=== PATIENT | male | born 1965 | race Two or more races ===

== ENCOUNTER 2016-11-05 01:47 | Emergency (ER) | payer OTHER ==
[~2016-11-05] VITALS: Ht 165.1 cm; Wt 85.3 kg
[~2016-11-05 01:47] MED LIST: FENO200C PO; PANT40TA2 PO; TRAM50TA2 PO
--- NOTE | 2016-11-05 01:47 | NUR ---
to bed 2 ambulatory c/o chest pain, abdominal pain, and back pain x2-3hrs. pt aaox4 no acute distress noted, resp even and unlabored. place pt on cardiac monitoring, continuous pox, o2@2l/nc. er md at bedside to eval pt with orders receved. will carry out orders.
--- NOTE | 2016-11-05 01:50 | NUR ---
started sl 18g to L ac, blood drawn and sent to lab. pt family member at bedside.
[2016-11-05] MEDS ORDERED: ONDANSETRON HCL/PF 4 MG/2 ML VIAL ONE (02:09)
[2016-11-05] MEDS ORDERED: MORPHINE SULFATE INJ 4 MG/ML DISP.SYRIN ONE (02:09)
[2016-11-05] MEDS ORDERED: IV SET PRIMARY 1 EA INFUS.SET MC ONE (02:09)
[2016-11-05] MEDS ORDERED: IV NS 0.9% 1,000 ML ONE (02:09)
[2016-11-05 02:17] LABS: BASOPHILS % (AUTO) 0.4 % (0.0-2.0); EOSINOPHILS % (AUTO) 0.7 % (0.0-6.0); HEMATOCRIT 44 % (39-51); HEMOGLOBIN 15.3 g/dL (13.5-17.5); LYMPHOCYTES # (AUTO) 2.8 /CMM (0.8-4.8); LYMPHOCYTES % (AUTO) 46.7 % (20.0-44.0); MEAN CORPUSCULAR HEMOGLOBIN 32 PG (26.0-33.0); MEAN CORPUSCULAR HGB CONC 34 g/dl (31.0-36.0); MEAN CORPUSCULAR VOLUME 94 fL (80-96); MONOCYTES # (AUTO) 0.4 /CMM (0.1-1.30); MONOCYTES % (AUTO) 7.4 % (2.0-12.0); NEUTROPHILS # (AUTO) 2.7 /CMM (1.8-8.9); NEUTROPHILS % (AUTO) 44.8 % (43.0-81.0); PLATELET COUNT (AUTO) 253 /CMM (150-450); RDW COEFFICIENT OF VARIATION 13.5 (11.5-15.0); RED BLOOD CELL COUNT(AUTO) 4.73 MIL/uL (4.5-6.0); WHITE BLOOD COUNT (AUTO) 5.9 K/uL (4.3-11.0)
[2016-11-05] MEDS ORDERED: MORPHINE SULFATE INJ 2 MG/ML DISP.SYRIN IV ONE (02:30)
[2016-11-05] MEDS ORDERED: IV NS 0.9% 1,000 ML BAG IV ONE (02:30)
[2016-11-05] MEDS ORDERED: ONDANSETRON HCL/PF 4 MG/2 ML VIAL IVP ONE (02:30)
[2016-11-05 02:35] LABS: ALKALINE PHOSPHATASE 79 U/L (46-116); BILIRUBIN,DIRECT 0.1 mg/dL (0.0-0.2); BILIRUBIN,TOTAL 0.6 mg/dL (0.2-1.0); CARBON DIOXIDE 24 mmol/L (21-32); CHLORIDE 101 mmol/L (98-107); CREATININE 0.8 mg/dL (0.6-1.3); GFR 102 mL/min (>60); GLUCOSE 161 mg/dL (74-106); LIPASE 637 U/L (73-393); POTASSIUM 3.7 mmol/L (3.5-5.1); SODIUM SERUM 139 mmol/L (136-145); TOTAL PROTEIN, SERUM 7.4 g/dL (6.4-8.2); UREA NITROGEN, BLOOD 11 mg/dL (7-18)
[2016-11-05 02:37] LABS: TROPONIN I < 0.017 ng/mL (0.00-0.056)
[2016-11-05] MEDS ORDERED: IV NS 0.9% 250 ML IV ONE (02:48)
[2016-11-05] MEDS ORDERED: CT SWABBABLE VALVE TRANS SET 1 EA INFUS.SET MC ONE (02:49)
[2016-11-05] MEDS ORDERED: IOHEXOL-300 100 ML VIAL IV ONE (02:49)
[2016-11-05 02:53] LABS: ALANINE AMINOTRANSFERASE 30 U/L (12-78); ASPARTATE AMINOTRANSFERASE 32 U/L (15-37)
--- NOTE | 2016-11-05 02:57 | NUR ---
pt transported to radiology for ct abd/pelvis with iv contrast.
--- NOTE | 2016-11-05 03:16 | NUR ---
pt back from radiology. pending ct abd/pelvis result.
--- NOTE | 2016-11-05 03:32 | NUR ---
pt still c/o abdominal pain. er md made aware.
[2016-11-05 04:13] LABS: APPEARANCE,URINE CLEAR (CLEAR); BILIRUBIN,URINE NEGATIVE (NEGATIVE); BLOOD, URINE NEGATIVE Ery/uL (NEGATIVE); KETONES,URINE NEGATIVE (NEGATIVE); LEUKOCYTE ESTERASE ,URINE NEGATIVE (NEGATIVE); NITRITE, URINE NEGATIVE (NEGATIVE); PROTEIN,URINE NEGATIVE (NEGATIVE); UGLUCOSE NEGATIVE (NEGATIVE); UROBILINOGEN,URINE 0.2 EU/dL (0.2)
[2016-11-05 04:19] LABS: COLOR,URINE STRAW (YELLOW)
--- NOTE | 2016-11-05 04:43 | NUR ---
IV removed. Catheter intact and site benign. Pressure and 4x4 applied to site. No bleeding noted. Patient discharged to home in stable condition. Written and verbal after care instructions given. Patient verbalizes understanding of instruction. ambulatory with a steady gait noted. pt aaox4 no acute distress noted, resp even and unlabored. advice pt not to drive or operate any machinery due to pt was given narcotic medicine. pt verbalize understanding.
[2016-11-05 04:44] VITALS: BP 123/67
== END 2016-11-05 04:45 | disposition home or self-care (01) ==
LOC: ER 01:50 → TELE1 03:10 → UNDOADMIN 03:10 → ER 04:45
DX: K85.90 Acute pancreatitis without necrosis or infection, unspecified (principal); E78.00 Pure hypercholesterolemia, unspecified; F17.200 Nicotine dependence, unspecified, uncomplicated
CPT/HCPCS: 36415; 71010-TC; 80048-TC; 80076-TC; 81000-TC; 83690-TC; 84484-TC; 85025-TC; A4606; J2270; J2405; J7030; J7050; Q9967; Z7610

== ENCOUNTER 2016-12-28 00:01 | Emergency (ER) | payer OTHER ==
[~2016-12-28] VITALS: Ht 165.1 cm; Wt 81.6 kg
--- NOTE | 2016-12-28 01:25 | NUR ---
TO BED 06 A 51 YO MALE BBSELF WITH C/O "ANDRE GROIN OR PELVIC PAIN SINCE YESTERDAY MORNING, WORSE TO DAY." PER PATIENT, HE TOOK 2 NORCO'S AT HOME. PATIENT IS AAOX4, AMBULATORY. VSS. NO S/S OF ACUTE DISTRESS. BREATHING EVEN UNLABORED. NONDIAPHORETIC. GOWNED. INITIATED SAFETY AND COMFORT MEASURES. AWAITING FOR ER MD FAGAN.
[2016-12-28] MEDS ORDERED: ONDANSETRON HCL/PF 4 MG/2 ML VIAL IVP ONE (02:00)
[2016-12-28] MEDS ORDERED: IV NS 0.9% 1,000 ML BAG IV ONE (02:00)
--- NOTE | 2016-12-28 02:00 | NUR ---
STARTED A SALINE LOCK ON THE LAC G18, BLOOD DRAWN AND SENT TO LAB.
[2016-12-28] MEDS ORDERED: IV NS 0.9% 1,000 ML ONE (02:07)
[2016-12-28] MEDS ORDERED: ONDANSETRON HCL/PF 4 MG/2 ML VIAL ONE (02:07)
[2016-12-28] MEDS ORDERED: IV SET PRIMARY 1 EA INFUS.SET MC ONE (02:07)
[2016-12-28 02:12] LABS: BASOPHILS % (AUTO) 0.2 % (0.0-2.0); EOSINOPHILS # (AUTO) 0.1 /CMM (0.0-0.7); EOSINOPHILS % (AUTO) 0.9 % (0.0-6.0); HEMATOCRIT 43 % (39-51); HEMOGLOBIN 14.8 g/dL (13.5-17.5); LYMPHOCYTES # (AUTO) 2.9 /CMM (0.8-4.8); LYMPHOCYTES % (AUTO) 30.6 % (20.0-44.0); MEAN CORPUSCULAR HEMOGLOBIN 33 PG (26.0-33.0); MEAN CORPUSCULAR HGB CONC 35 g/dl (31.0-36.0); MEAN CORPUSCULAR VOLUME 95 fL (80-96); MONOCYTES # (AUTO) 0.4 /CMM (0.1-1.30); MONOCYTES % (AUTO) 4.2 % (2.0-12.0); NEUTROPHILS # (AUTO) 6.1 /CMM (1.8-8.9); NEUTROPHILS % (AUTO) 64.1 % (43.0-81.0); PLATELET COUNT (AUTO) 228 /CMM (150-450); RDW COEFFICIENT OF VARIATION 13.2 (11.5-15.0); WHITE BLOOD COUNT (AUTO) 9.4 K/uL (4.3-11.0)
[2016-12-28 02:15] LABS: APPEARANCE,URINE CLEAR (CLEAR); BILIRUBIN,URINE NEGATIVE (NEGATIVE); BLOOD, URINE NEGATIVE Ery/uL (NEGATIVE); KETONES,URINE NEGATIVE (NEGATIVE); LEUKOCYTE ESTERASE ,URINE NEGATIVE (NEGATIVE); NITRITE, URINE NEGATIVE (NEGATIVE); PROTEIN,URINE NEGATIVE (NEGATIVE); UGLUCOSE NEGATIVE (NEGATIVE); UROBILINOGEN,URINE 0.2 EU/dL (0.2)
[2016-12-28 02:25] LABS: COLOR,URINE STRAW (YELLOW)
[2016-12-28 02:29] LABS: INR 0.98 (0.87-1.13); PROTHROMBIN TIME 10.5 SECS (9.5-12.7)
[2016-12-28 02:34] LABS: ALBUMIN 4.1 g/dL (3.4-5.0); BILIRUBIN,DIRECT 0.1 mg/dL (0.0-0.2); BILIRUBIN,TOTAL 0.8 mg/dL (0.2-1.0); CALCIUM, SERUM 9.3 mg/dL (8.5-10.1); CREATININE 0.8 mg/dL (0.6-1.3); POTASSIUM 3.5 mmol/L (3.5-5.1); TOTAL PROTEIN, SERUM 7.6 g/dL (6.4-8.2)
[2016-12-28] MEDS ORDERED: IOHEXOL-300 100 ML VIAL IV ONE (02:44)
[2016-12-28] MEDS ORDERED: IV NS 0.9% 250 ML IV ONE (02:44)
--- NOTE | 2016-12-28 03:15 | NUR ---
patient to ct.
[2016-12-28] MEDS ORDERED: AMOX/CLAVULANATE 875 MG TABLET ONE (04:14)
[2016-12-28] MEDS ORDERED: IBUPROFEN 400 MG TABLET ONE (04:14)
[2016-12-28] MEDS ORDERED: IBUPROFEN 400 MG TABLET PO ONE (04:30)
[2016-12-28] MEDS ORDERED: AMOX/CLAVULANATE 875 MG TABLET PO ONE (04:30)
--- NOTE | 2016-12-28 04:34 | NUR ---
IV removed. Catheter intact and site benign. Pressure and 4x4 applied to site. No bleeding noted.
--- NOTE | 2016-12-28 04:40 | NUR ---
Patient discharged to home in stable condition. Written and verbal after care instructions given. Patient verbalizes understanding of instruction. Patient is ambulatory with steady gait, instructed not to drive as patient admitted of drinking vodka. No further complaints.
[2016-12-28 04:41] VITALS: BP 138/78
== END 2016-12-28 04:42 | disposition home or self-care (01) ==
LOC: ER 00:01
DX: K57.92 Diverticulitis of intestine, part unspecified, without perforation or abscess without bleeding (principal); I10 Essential (primary) hypertension; K85.90 Acute pancreatitis without necrosis or infection, unspecified; Z95.811 Presence of heart assist device; F17.200 Nicotine dependence, unspecified, uncomplicated
CPT/HCPCS: 36415; 80048-TC; 80076-TC; 81000-TC; 83690-TC; 85025-TC; 85730-TC; A4606; J2405; J7030; J7050; Q9967; Z7610

== ENCOUNTER 2017-01-21 10:15 | Emergency (ER) | payer OTHER ==
[~2017-01-21] VITALS: Ht 175.3 cm; Wt 88.5 kg
--- NOTE | 2017-01-21 10:18 | NUR ---
BIB RA C/O DIFFUSED CHEST DISCOMFORT, WITH ANXIOUSNESS SINCE THIS MORNING ASA 162, NITRO X 2 GIVEN IN FIELD. PLACED ON MONITOR. AWAITING MD ORDER
--- NOTE | 2017-01-21 10:20 | NUR ---
L AC G 20 IV POA. BLOOD TESTS DRAWN AND SEND TO LAB.
[2017-01-21] MEDS ORDERED: ASPIRIN 325 MG TABLET ONE (11:23)
[2017-01-21] MEDS ORDERED: LORAZEPAM INJ 2 MG/ML VIAL ONE (11:24)
[2017-01-21 11:25] LABS: CALCIUM, SERUM 9.2 mg/dL (8.5-10.1); CARBON DIOXIDE 25 mmol/L (21-32); CHLORIDE 102 mmol/L (98-107); CREATININE 0.9 mg/dL (0.6-1.3); GLUCOSE 154 mg/dL (74-106); POTASSIUM 3.4 mmol/L (3.5-5.1); SODIUM SERUM 136 mmol/L (136-145); UREA NITROGEN, BLOOD 14 mg/dL (7-18)
[2017-01-21] MEDS ORDERED: ASPIRIN 325 MG TABLET PO ONE (11:30)
[2017-01-21] MEDS ORDERED: LORAZEPAM INJ 2 MG/ML VIAL IV ONE (11:30)
[2017-01-21 11:34] LABS: INR 0.96 (0.87-1.13); TROPONIN I < 0.017 ng/mL (0.00-0.056)
[2017-01-21 11:42] LABS: BASOPHILS # (AUTO) 0.1 /CMM (0.0-0.2); BASOPHILS % (AUTO) 0.6 % (0.0-2.0); EOSINOPHILS # (AUTO) 0.2 /CMM (0.0-0.7); EOSINOPHILS % (AUTO) 1.6 % (0.0-6.0); HEMATOCRIT 46 % (39-51); HEMOGLOBIN 15.8 g/dL (13.5-17.5); LYMPHOCYTES # (AUTO) 4.7 /CMM (0.8-4.8); LYMPHOCYTES % (AUTO) 48.6 % (20.0-44.0); MEAN CORPUSCULAR HEMOGLOBIN 33 PG (26.0-33.0); MEAN CORPUSCULAR HGB CONC 34 g/dl (31.0-36.0); MEAN CORPUSCULAR VOLUME 95 fL (80-96); MONOCYTES # (AUTO) 0.6 /CMM (0.1-1.30); MONOCYTES % (AUTO) 6.4 % (2.0-12.0); NEUTROPHILS # (AUTO) 4.1 /CMM (1.8-8.9); NEUTROPHILS % (AUTO) 42.8 % (43.0-81.0); PLATELET COUNT (AUTO) 280 /CMM (150-450); RDW COEFFICIENT OF VARIATION 13.7 (11.5-15.0); RED BLOOD CELL COUNT(AUTO) 4.83 MIL/uL (4.5-6.0); WHITE BLOOD COUNT (AUTO) 9.7 K/uL (4.3-11.0)
--- NOTE | 2017-01-21 11:44 | NUR ---
URINE SAMPLE COLLECTED SENT TO LAB
--- NOTE | 2017-01-21 11:44 | NUR ---
PT WAS ABLE TO URINATE PRIOR TO STRAIGHT CATH.
--- NOTE | 2017-01-21 11:45 | NUR ---
URINE SAMPLE COLLECTED AND SENT TO LAB
[2017-01-21 11:50] LABS: ALCOHOL, BLOOD < 3 mg/dL (0-0); LIPASE 369 U/L (73-393)
[2017-01-21 14:04] VITALS: BP 121/67
--- NOTE | 2017-01-21 14:04 | NUR ---
PT. VERBALIZED UNDERSTANDING OF AFTERCARE INSTRUCTIONS.Patient discharged to home in stable condition. Written and verbal after care instructions given. Patient verbalizes understanding of instruction.
--- NOTE | 2017-01-21 14:04 | NUR ---
IV removed. Catheter intact and site benign. Pressure and 4x4 applied to site. No bleeding noted.
== END 2017-01-21 14:05 | disposition home or self-care (01) ==
LOC: ER 10:16
DX: R07.89 Other chest pain (principal); I10 Essential (primary) hypertension; K85.90 Acute pancreatitis without necrosis or infection, unspecified; F17.200 Nicotine dependence, unspecified, uncomplicated; I25.10 Atherosclerotic heart disease of native coronary artery without angina pectoris
CPT/HCPCS: 36415; 71010-TC; 80048-TC; 80305; 83690-TC; 84484-TC; 85025-TC; 85730-TC; A4606; G0480; J2060; Z7610

== ENCOUNTER 2017-04-18 19:16 | Emergency (ER) | payer OTHER ==
[~2017-04-18] VITALS: Ht 165.1 cm; Wt 81.6 kg
--- NOTE | 2017-04-18 19:40 | NUR ---
ISMA C/O MIDEPIGASTRIC PAIN SINCE 12PM. - N/V . SEEN BY FOR EVAL. IV ACCESS STARTED. SAFETY AND COMFORT MEASURES PROVIDED. WILL MONITOR.
--- NOTE | 2017-04-18 20:15 | NUR ---
PT MEDICATED ORDERED.
[2017-04-18 20:16] LABS: APPEARANCE,URINE Clear (CLEAR); BILIRUBIN,URINE Negative (NEGATIVE); BLOOD, URINE Negative Ery/uL (NEGATIVE); COLOR,URINE Yellow (YELLOW); KETONES,URINE Negative (NEGATIVE); LEUKOCYTE ESTERASE ,URINE Negative (NEGATIVE); NITRITE, URINE Negative (NEGATIVE); PH,URINE 5.5 (5.0-8.0); PROTEIN,URINE Negative (NEGATIVE); UGLUCOSE Negative (NEGATIVE); UROBILINOGEN,URINE 0.2 EU/dL (0.2)
[2017-04-18 20:52] LABS: ALBUMIN 3.2 g/dL (3.4-5.0); BILIRUBIN,DIRECT 0.1 mg/dL (0.0-0.2); BILIRUBIN,TOTAL 1.3 mg/dL (0.2-1.0); CARBON DIOXIDE 11 mmol/L (21-32); CHLORIDE 97 mmol/L (98-107); CREATININE 0.8 mg/dL (0.6-1.3); GLUCOSE 221 mg/dL (74-106); LIPASE 308 U/L (73-393); POTASSIUM 3.2 mmol/L (3.5-5.1); SODIUM SERUM 130 mmol/L (136-145)
--- NOTE | 2017-04-18 21:02 | NUR ---
RN AT BEDSIDE TO MEDICATE PT.
[2017-04-18 21:18] LABS: BASOPHILS % (AUTO) 0.4 % (0.0-2.0); EOSINOPHILS # (AUTO) 0.1 /CMM (0.0-0.7); EOSINOPHILS % (AUTO) 1.1 % (0.0-6.0); HEMATOCRIT 42 % (39-51); HEMOGLOBIN 14.4 g/dL (13.5-17.5); LYMPHOCYTES # (AUTO) 3.2 /CMM (0.8-4.8); LYMPHOCYTES % (AUTO) 38.7 % (20.0-44.0); MEAN CORPUSCULAR HEMOGLOBIN 33 PG (26.0-33.0); MEAN CORPUSCULAR HGB CONC 35 g/dl (31.0-36.0); MEAN CORPUSCULAR VOLUME 95 fL (80-96); MONOCYTES # (AUTO) 0.5 /CMM (0.1-1.30); MONOCYTES % (AUTO) 6.4 % (2.0-12.0); NEUTROPHILS # (AUTO) 4.4 /CMM (1.8-8.9); NEUTROPHILS % (AUTO) 53.4 % (43.0-81.0); PLATELET COUNT (AUTO) 211 /CMM (150-450); RDW COEFFICIENT OF VARIATION 14.2 (11.5-15.0)
[2017-04-18 21:22] LABS: WHITE BLOOD COUNT (AUTO) 8.3 K/uL (4.3-11.0)
[2017-04-18 21:52] LABS: ALANINE AMINOTRANSFERASE 84 U/L (12-78); ASPARTATE AMINOTRANSFERASE 152 U/L (15-37); TROPONIN I < 0.017 ng/mL (0.00-0.056)
[2017-04-18 22:16] LABS: ALKALINE PHOSPHATASE 109 U/L (46-116); UREA NITROGEN, BLOOD 14 mg/dL (7-18)
--- NOTE | 2017-04-18 22:19 | NUR ---
DR. ANDREW AT BEDSIDE TO RYLAN BARROW.
[2017-04-18 22:21] LABS: INR 0.96 (0.87-1.13)
[2017-04-18 22:27] LABS: CALCIUM, SERUM 6.8 mg/dL (8.5-10.1)
[2017-04-18 22:28] LABS: TOTAL PROTEIN, SERUM 6.4 g/dL (6.4-8.2)
[2017-04-18 22:45] VITALS: BP 127/67
== END 2017-04-18 22:46 | disposition other institution (70) ==
LOC: ER 19:18
DX: E78.5 Hyperlipidemia, unspecified (principal); R10.10 Upper abdominal pain, unspecified; I10 Essential (primary) hypertension; F17.200 Nicotine dependence, unspecified, uncomplicated; Z95.828 Presence of other vascular implants and grafts
CPT/HCPCS: 36415; 70450; 71010; 74176; 80048; 80076; 81001; 83690; 84484; 85025; 85730; 93005; 96361; 96374; 96375; 96376; 99285; A4606; J1170; J2270; J2405 ×3; J7030; Z7610; 81000-TC

== ENCOUNTER 2017-05-26 00:47 | Emergency (ER) | payer OTHER ==
[~2017-05-26] VITALS: Ht 165.1 cm; Wt 81.6 kg
--- NOTE | 2017-05-26 01:15 | NUR ---
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 TOOK CLONIDINE 0.1MG PO AND NITRO SL 1 TAB. PT STATES FEELING NAUSEOUS. PT AOX3 RR EVEN AND UNLABORED. NO SOB NOTED. NAD NOTED. NO NVD AT THIS TIME. PT GOWNED AND PLACED ON MONITOR WAITING FOR MD FAGAN.
[2017-05-26 01:16] VITALS: BP 121/87
--- NOTE | 2017-05-26 01:16 | NUR ---
DR. LORD AT BEDSIDE FOR EVAL.
--- NOTE | 2017-05-26 01:26 | NUR ---
PT LEFT WITHOUT D/C PAPERS. MD JULES
== END 2017-05-26 01:26 | disposition home or self-care (01) ==
LOC: ER 00:49
DX: F41.9 Anxiety disorder, unspecified (principal); I10 Essential (primary) hypertension; Z95.811 Presence of heart assist device; F17.200 Nicotine dependence, unspecified, uncomplicated
CPT/HCPCS: 99284; A4606; Z7610

== ENCOUNTER 2017-06-08 01:14 | Emergency (ER) | payer OTHER ==
[~2017-06-08] VITALS: Ht 165.1 cm; Wt 81.6 kg
[2017-06-08 01:16] VITALS: BP 133/94
== END 2017-06-08 03:27 | disposition home or self-care (01) ==
LOC: ER 01:15
DX: F41.9 Anxiety disorder, unspecified (principal); I10 Essential (primary) hypertension; F17.200 Nicotine dependence, unspecified, uncomplicated; Z95.818 Presence of other cardiac implants and grafts
CPT/HCPCS: 99284; A4606 ×2; Z7610 ×2

== ENCOUNTER 2017-08-10 16:15 | Inpatient (IN) | payer OTHER ==
[~2017-08-10] VITALS: Ht 165.1 cm; Wt 87.1 kg
--- NOTE | 2017-08-10 16:20 | NUR ---
BBRA FROM HOME: ABDOMINAL PAIN, CHEST PAIN SINCE YESTERDAY, WORSE TODAY. VSS. SEEN BY MD FOR EVAL. NITRO GIVEN FROM FIELD. PT REPORTS HX OF STENT PLACEMENT X 2. SAFETY AND COMFORT MEASURES PROVIDED. WILL MONITOR.
--- NOTE | 2017-08-10 16:57 | NUR ---
IV ACCESS STARTED. BLOOD DRAWN FOR LABS.
[2017-08-10 17:00] LABS: BASOPHILS % (AUTO) 0.7 % (0.0-2.0); EOSINOPHILS # (AUTO) 0.1 /CMM (0.0-0.7); EOSINOPHILS % (AUTO) 0.9 % (0.0-6.0); HEMATOCRIT 40 % (39-51); HEMOGLOBIN 14.2 g/dL (13.5-17.5); LYMPHOCYTES % (AUTO) 50.7 % (20.0-44.0); MEAN CORPUSCULAR HEMOGLOBIN 33 PG (26.0-33.0); MEAN CORPUSCULAR HGB CONC 35 g/dl (31.0-36.0); MEAN CORPUSCULAR VOLUME 94 fL (80-96); MONOCYTES # (AUTO) 0.6 /CMM (0.1-1.30); MONOCYTES % (AUTO) 9.5 % (2.0-12.0); NEUTROPHILS # (AUTO) 2.2 /CMM (1.8-8.9); NEUTROPHILS % (AUTO) 38.2 % (43.0-81.0); PLATELET COUNT (AUTO) 304 /CMM (150-450); RDW COEFFICIENT OF VARIATION 12.5 (11.5-15.0); RED BLOOD CELL COUNT(AUTO) 4.29 MIL/uL (4.5-6.0); WHITE BLOOD COUNT (AUTO) 5.9 K/uL (4.3-11.0)
[2017-08-10 17:09] LABS: CALCIUM, SERUM 9.7 mg/dL (8.5-10.1); CARBON DIOXIDE 23 mmol/L (21-32); CHLORIDE 99 mmol/L (98-107); CREATININE 1.2 mg/dL (0.6-1.3); GLUCOSE 122 mg/dL (74-106); POTASSIUM 3.5 mmol/L (3.5-5.1); SODIUM SERUM 135 mmol/L (136-145); UREA NITROGEN, BLOOD 22 mg/dL (7-18)
[2017-08-10 17:12] LABS: INR 0.91 (0.85-1.15)
[2017-08-10 17:18] LABS: TROPONIN I < 0.017 ng/mL (0.00-0.056)
[2017-08-10] MEDS ORDERED: IV NS 0.9% 1,000 ML BAG IV ONE (17:30)
[2017-08-10] MEDS ORDERED: HYDROMORPHONE INJ 0.5 MG/0.5 ML SYRINGE IV ONE (17:30)
[2017-08-10] MEDS ORDERED: HYDROMORPHONE 1 MG/1 ML DISP.SYRIN ONE ×2 (17:34→20:09)
[2017-08-10 17:40] LABS: ALBUMIN 3.8 g/dL (3.4-5.0); BILIRUBIN,DIRECT 0.1 mg/dL (0.0-0.2); BILIRUBIN,TOTAL 0.5 mg/dL (0.2-1.0); TOTAL PROTEIN, SERUM 7.6 g/dL (6.4-8.2)
[2017-08-10] MEDS ORDERED: HYDROMORPHONE INJ 2 MG/ML DISP.SYRIN IV ONE (20:00)
[2017-08-10] MEDS ORDERED: METOCLOPRAMIDE HCL 10 MG/2 ML VIAL IV ONE (20:00)
[2017-08-10] MEDS ORDERED: IV LR 1000 ML 1,000 ML IV ONE (20:00)
[2017-08-10] MEDS ORDERED: METOCLOPRAMIDE HCL 10 MG/2 ML VIAL ONE (20:09)
[2017-08-10] MEDS ORDERED: ONDANSETRON HCL/PF 4 MG/2 ML VIAL IVP PRN (20:30)
[2017-08-10] MEDS ORDERED: ACETAMINOPHEN 325 MG TABLET PO PRN (20:30)
[2017-08-10] MEDS ORDERED: ZOLPIDEM TARTRATE 5 MG TABLET PO PRN (20:30)
[2017-08-10] MEDS ORDERED: Z GUARD REMEDY 2 OZ OINT TP PRN (20:30)
[2017-08-10] MEDS ORDERED: HYDROMORPHONE INJ 0.5 MG/0.5 ML SYRINGE IV PRN (21:00)
--- NOTE | 2017-08-10 21:22 | NUR ---
REPORT GIVEN TO DAYANNA ODONNELL FOR 311 TELE.
[2017-08-10 21:25] VITALS: BP 108/67
--- NOTE | 2017-08-10 21:25 | NUR ---
MACHINE CLERICAL VERIFIER NOTES PT ARRIVED ONTO THE UNIT VIA GURNEY. PT AMBULATED FROM GURNEY TO BED. NO COMPLAINTS OF PAIN OR SOB AT THIS TIME. PT VITAL SIGNS ARE STABLE. PT HAS A LEFT AC IV #20, INTACT AND PATENT, LR RUNNING AT 150 ML/HR. PT LUNGS ARE CLEAR BILATERALLY. SKIN INTACT. ORIENTED PATIENT TO THE USE OF THE CALL LIGHT. INFORMED PT THAT DR ORDERED NPO, PT COMPLIED. PT IS TELE MONITORED AT SIN[place] RHYTHM RATE IN THE 80'S. SAFETY PRECAUTIONS IN PLACE. BED IN LOW, LOCKED POSITION, X2 SIDE RAILS UP. CALL LIGHT WITHIN REACH. WILL CONTINUE TO MONITOR.
[2017-08-10] MEDS: PANTOPRAZOLE 40 MG VIAL IV SCH (22:49)
[2017-08-11 00:25] VITALS: BP 111/65
[2017-08-11] MEDS: IV NS 0.9% 1,000 ML IV PRN ×3 (01:13→18:33)
[2017-08-11 04:00] VITALS: BP 121/79
[2017-08-11 07:00] LABS: BASOPHILS % (AUTO) 0.6 % (0.0-2.0); EOSINOPHILS # (AUTO) 0.1 /CMM (0.0-0.7); EOSINOPHILS % (AUTO) 1.5 % (0.0-6.0); HEMATOCRIT 38 % (39-51); HEMOGLOBIN 13.7 g/dL (13.5-17.5); LYMPHOCYTES # (AUTO) 2.8 /CMM (0.8-4.8); LYMPHOCYTES % (AUTO) 54.3 % (20.0-44.0); MEAN CORPUSCULAR HEMOGLOBIN 34 PG (26.0-33.0); MEAN CORPUSCULAR HGB CONC 36 g/dl (31.0-36.0); MEAN CORPUSCULAR VOLUME 95 fL (80-96); MONOCYTES # (AUTO) 0.5 /CMM (0.1-1.30); MONOCYTES % (AUTO) 8.9 % (2.0-12.0); NEUTROPHILS # (AUTO) 1.8 /CMM (1.8-8.9); NEUTROPHILS % (AUTO) 34.7 % (43.0-81.0); PLATELET COUNT (AUTO) 251 /CMM (150-450); RDW COEFFICIENT OF VARIATION 13.3 (11.5-15.0); RED BLOOD CELL COUNT(AUTO) 3.99 MIL/uL (4.5-6.0); WHITE BLOOD COUNT (AUTO) 5.1 K/uL (4.3-11.0)
[2017-08-11 07:12] LABS: ALBUMIN 3.4 g/dL (3.4-5.0); BILIRUBIN,TOTAL 0.4 mg/dL (0.2-1.0); CALCIUM, SERUM 8.7 mg/dL (8.5-10.1); CREATININE 0.8 mg/dL (0.6-1.3); MAGNESIUM 1.6 mg/dL (1.8-2.4); PHOSPHORUS 3.8 mg/dL (2.5-4.9); POTASSIUM 3.7 mmol/L (3.5-5.1); TOTAL PROTEIN, SERUM 6.8 g/dL (6.4-8.2)
--- NOTE | 2017-08-11 07:35 | NUR ---
RN CLOSING NOTES PT RESTING IN BED. NO COMPLAINTS OF PAIN OR SOB AT THIS TIME. PT HAS A LEFT AC IV #20, INTACT AND PATENT, NS RUNNING AT 150 ML/HR. PT IS TELE MONITORED AT SINUS RHYTHM RATE IN THE 80'S. SAFETY PRECAUTIONS IN PLACE. BED IN LOW, LOCKED POSITION, X2 SIDE RAILS UP. CALL LIGHT WITHIN REACH. WILL ENDORSE TO DAY SHIFT NURSE FOR CONTINUITY OF CARE.
[2017-08-11 08:00] VITALS: BP 130/79
[2017-08-11] MEDS ORDERED: METO25TA20 PO (08:37)
[2017-08-11] MEDS ORDERED: CLOP75TA15 PO (08:37)
[2017-08-11] MEDS ORDERED: ASPI-1152 PO (08:37)
[2017-08-11] MEDS ORDERED: OMEG-167 PO (08:37)
[2017-08-11] MEDS ORDERED: FAMO20TA8 PO (08:37)
[2017-08-11] MEDS ORDERED: BENA20TA2 PO (08:37)
[2017-08-11] MEDS ORDERED: GEMF600T3 PO (08:37)
[2017-08-11] MEDS: PANTOPRAZOLE 40 MG VIAL IV SCH (09:04)
--- NOTE | 2017-08-11 09:04 | NUR ---
ms rn dilgenieid .25mg ivp given for abdominal pain 02/17, i scan it but don't know why it was not showing in sep.
[2017-08-11] MEDS: Magnesium 1GM/D5W 100ML PREMIX 100 ML IV SCH ×2 (12:29→14:06)
--- NOTE | 2017-08-11 13:00 | NUR ---
ms richey was seen by cameron brown w/ orders made and carried out.
[2017-08-11 15:59] VITALS: BP 146/91
[2017-08-11] MEDS ORDERED: LORAZEPAM INJ 2 MG/ML VIAL IV PRN (17:00)
[2017-08-11] MEDS: HYDROMORPHONE INJ 0.5 MG/0.5 ML SYRINGE IV PRN ×2 (17:21→21:22)
[2017-08-11] MEDS: FENOFIBRATE NANOCRYS (145 MG) 145 MG TABLET PO SCH (17:21)
--- NOTE | 2017-08-11 18:43 | NUR ---
ms rn on bed, no change of condition.
--- NOTE | 2017-08-11 19:35 | NUR ---
MS/SENIOR SYSTEMS ANALYST; RECEIVED PT IN BED AWAKE, ALERT AND ORIENTED X 4. BREATHING NON LABORED. DENIES PAIN. NO N/V NOTED. IVF ON PROGRESS. PT ASKING CRACKERS I TOLD HIM NO AND I TOLD ALSO HE IS ON CLEAR LIQUID. I GAVE HIM APPLE JUICE AND JELLO. BED ON LOWER POSITION AND LOCKED FOR SAFETY. SIDE RAILS UPPER PART OF BED ARE UP FOR SAFETY. WILL CONTINUE TO MONITOR. CALL LIGHT WITHIN REACH.
[2017-08-11 20:00] VITALS: BP 135/78
[2017-08-12] MEDS: IV NS 0.9% 1,000 ML IV PRN ×2 (02:11→09:08)
[2017-08-12] MEDS: HYDROMORPHONE INJ 0.5 MG/0.5 ML SYRINGE IV PRN ×3 (02:26→13:05)
[2017-08-12 06:54] LABS: BASOPHILS % (AUTO) 0.3 % (0.0-2.0); EOSINOPHILS # (AUTO) 0.1 /CMM (0.0-0.7); EOSINOPHILS % (AUTO) 1.1 % (0.0-6.0); HEMATOCRIT 37 % (39-51); LYMPHOCYTES # (AUTO) 2.2 /CMM (0.8-4.8); LYMPHOCYTES % (AUTO) 45.2 % (20.0-44.0); MEAN CORPUSCULAR HEMOGLOBIN 34 PG (26.0-33.0); MEAN CORPUSCULAR HGB CONC 36 g/dl (31.0-36.0); MEAN CORPUSCULAR VOLUME 95 fL (80-96); MONOCYTES # (AUTO) 0.4 /CMM (0.1-1.30); MONOCYTES % (AUTO) 7.8 % (2.0-12.0); NEUTROPHILS # (AUTO) 2.2 /CMM (1.8-8.9); NEUTROPHILS % (AUTO) 45.6 % (43.0-81.0); PLATELET COUNT (AUTO) 212 /CMM (150-450); RDW COEFFICIENT OF VARIATION 12.7 (11.5-15.0); RED BLOOD CELL COUNT(AUTO) 3.86 MIL/uL (4.5-6.0); WHITE BLOOD COUNT (AUTO) 4.8 K/uL (4.3-11.0)
--- NOTE | 2017-08-12 07:00 | NUR ---
MS/SMT TECHNICIAN; PT WILL ENDORSE TO THE DAY SHIFT RN FOR CONTINUITY OF CARE.
--- NOTE | 2017-08-12 07:00 | NUR ---
MS/ENGLISH ADJUNCT FACULTY; SLEPT AT INTERVALS. IVF IN PROGRESS. WAS MEDICATED WITH PAIN SHOT LAST NIGHT FOR C/O ABDOMINAL PAIN WITH RELIEF. NO N/V NOTED. HAS BEEN ASKING FOR FOOD TO EAT. WILL CONTINUE TO MONITOR.
[2017-08-12 07:10] LABS: CALCIUM, SERUM 8.3 mg/dL (8.5-10.1); CREATININE 0.7 mg/dL (0.6-1.3); MAGNESIUM 1.9 mg/dL (1.8-2.4); POTASSIUM 4.1 mmol/L (3.5-5.1)
--- NOTE | 2017-08-12 07:20 | NUR ---
RN OPENING NOTES RECEIVED PATIENT IN BED RESTING, A/OX3. NO ACUTE DISTRESS, NO SOB NOTED. DENIES PAIN AND DISCOMFORT AT THIS TIME. IV SITE INTACT AND PATENT. KEPT PATIENT COMFORTABLE IN BED. BED IN LOW/LOCKED POSITION, SIDERAILS UPX2, CALL LIGHT IN REACH. WILL CONTINUE TO MONITOR ACCORDINGLY.
[2017-08-12 08:00] VITALS: BP 149/97
[2017-08-12] MEDS: FENOFIBRATE NANOCRYS (145 MG) 145 MG TABLET PO SCH (08:36)
[2017-08-12] MEDS: PANTOPRAZOLE 40 MG VIAL IV SCH (08:36)
[2017-08-12] MEDS ORDERED: METOPROLOL TARTRATE 25 MG TABLET PO SCH (10:00)
[2017-08-12] MEDS ORDERED: CLOPIDOGREL BISULFATE 75 MG TABLET PO SCH (10:00)
[2017-08-12] MEDS ORDERED: FAMOTIDINE (20 MG) 20 MG TABLET PO SCH (10:00)
[2017-08-12] MEDS ORDERED: BENAZEPRIL HCL 20 MG TABLET PO SCH (10:00)
[2017-08-12] MEDS ORDERED: GEMFIBROZIL 600 MG TABLET PO SCH (10:00)
[2017-08-12] MEDS ORDERED: ASPIRIN EC 81 MG TABLET.DR PO SCH (10:00)
[2017-08-12 11:19] VITALS: BP 146/92
[2017-08-12] MEDS ORDERED: HYDR-548 PO (14:32)
--- NOTE | 2017-08-12 16:30 | NUR ---
RN NOTES BLOOD PRESSURE ON HIGH SIDE, PATIENT STATED HE HAS A LITTLE BIT OF PAIN. OFFERED PAIN MEDICATION AND TOLD HIM TO REST FOR A WHILE, PATIENT REFUSED BECAUSE HE WANTS TO LEAVE NOW AND WILL JUST GET HIS PAIN MEDICATION FROM THE PHARMACY.
--- NOTE | 2017-08-12 16:36 | NUR ---
DRAWING INSTRUCTOR NOTES DISCHARGE PATIENT IN STABLE CONDITION ACCOMPANIED BY FRIEND. DISCHARGE INSTRUCTIONS GIVEN, VERBALIZED UNDERSTANDING, EDUCATION/TEACHING DONE ABOUT SMOKING AND ALCOHOL CESSATION. DISCHARGE PAPERWORK GIVEN. ALL BELONGINGS RETURNED, FORM SIGNED. D/C IV, APPLIED PRESSURE, NO BLEEDING, NO COMPLICATIONS. REMOVED ARMBAND.
== END 2017-08-12 16:41 | disposition home or self-care (01) | DRG 282 ==
LOC: ER 16:18 → TELE 20:50 → MED 08-11 09:31
PROVIDERS: ADMIT Internal Medicine; ATTEND Internal Medicine
DX: K85.90 Acute pancreatitis without necrosis or infection, unspecified (principal); N17.0 Acute kidney failure with tubular necrosis; I10 Essential (primary) hypertension; F17.210 Nicotine dependence, cigarettes, uncomplicated; Y90.3 Blood alcohol level of 60-79 mg/100 ml; I25.10 Atherosclerotic heart disease of native coronary artery without angina pectoris; Z95.5 Presence of coronary angioplasty implant and graft; Z79.899 Other long term (current) drug therapy; Z79.82 Long term (current) use of aspirin; E78.5 Hyperlipidemia, unspecified; F10.129 Alcohol abuse with intoxication, unspecified; R73.9 Hyperglycemia, unspecified; E78.1 Pure hyperglyceridemia
CPT/HCPCS: 36415; 71045-TC; 80048-TC; 80053-TC; 80061-TC; 80076-TC; 83690-TC; 83735-TC; 84100-TC; 84484-TC; 85025-TC; 85730-TC; 87081-TC; A4606; C9113; G0480; J1170; J2765; J3475; J7030; J7120; Z7610

== ENCOUNTER 2017-09-19 14:56 | Emergency (ER) | payer OTHER ==
[~2017-09-19] VITALS: Ht 165.1 cm; Wt 81.6 kg
[~2017-09-19 14:56] MED LIST changes: +ASPI-1152 PO; +BENA20TA2 PO; +CLOP75TA15 PO; +FAMO20TA8 PO; -FENO200C PO; +GEMF600T3 PO; +HYDR-548 PO; +METO25TA20 PO; +OMEG-167 PO; -PANT40TA2 PO; -TRAM50TA2 PO
--- NOTE | 2017-09-19 15:10 | NUR ---
PAIN IN "PANCREAS" POINTS TO EPIGASTRIC X1 DAY, +NAUSEA, NO VOMITING ALSO C/O URINARY FREQUENCY AND PELVIC PAIN X2 DAYS
[2017-09-19] MEDS ORDERED: IV NS 0.9% 500 ML BAG IV ONE (15:30)
[2017-09-19] MEDS ORDERED: HYDROMORPHONE INJ 2 MG/ML DISP.SYRIN IV ONE (15:30)
[2017-09-19] MEDS ORDERED: ONDANSETRON HCL/PF 4 MG/2 ML VIAL IVP ONE (15:30)
--- NOTE | 2017-09-19 15:35 | NUR ---
LAC #20 IV ACCESS, BLOOD SAMPLE COLLECTED SENT TO LAB
--- NOTE | 2017-09-19 15:43 | NUR ---
CALLED PHARMACY NO MORE LISBET GREEN CHANGE TO MORPHINE
[2017-09-19] MEDS ORDERED: ONDANSETRON HCL/PF 4 MG/2 ML VIAL ONE (15:45)
[2017-09-19] MEDS ORDERED: MORPHINE SULFATE INJ 4 MG/ML DISP.SYRIN ONE ×2 (15:45→16:08)
--- NOTE | 2017-09-19 15:45 | NUR ---
PT TAKEN TO CT
[2017-09-19 15:57] LABS: BASOPHILS % (AUTO) 0.7 % (0.0-2.0); EOSINOPHILS % (AUTO) 0.7 % (0.0-6.0); HEMATOCRIT 41 % (39-51); HEMOGLOBIN 14.9 g/dL (13.5-17.5); LYMPHOCYTES # (AUTO) 2.8 /CMM (0.8-4.8); LYMPHOCYTES % (AUTO) 44.5 % (20.0-44.0); MEAN CORPUSCULAR HEMOGLOBIN 34 PG (26.0-33.0); MEAN CORPUSCULAR HGB CONC 36 g/dl (31.0-36.0); MEAN CORPUSCULAR VOLUME 94 fL (80-96); MONOCYTES # (AUTO) 0.5 /CMM (0.1-1.30); MONOCYTES % (AUTO) 7.4 % (2.0-12.0); NEUTROPHILS # (AUTO) 2.9 /CMM (1.8-8.9); NEUTROPHILS % (AUTO) 46.7 % (43.0-81.0); PLATELET COUNT (AUTO) 271 /CMM (150-450); RDW COEFFICIENT OF VARIATION 13.4 (11.5-15.0); RED BLOOD CELL COUNT(AUTO) 4.41 MIL/uL (4.5-6.0); WHITE BLOOD COUNT (AUTO) 6.2 K/uL (4.3-11.0)
[2017-09-19] MEDS ORDERED: MORPHINE SULFATE INJ 2 MG/ML DISP.SYRIN IV ONE ×2 (16:00→16:30)
[2017-09-19 16:03] LABS: CALCIUM, SERUM 9.2 mg/dL (8.5-10.1); CARBON DIOXIDE 25 mmol/L (21-32); CHLORIDE 100 mmol/L (98-107); CREATININE 0.9 mg/dL (0.6-1.3); GLUCOSE 173 mg/dL (74-106); POTASSIUM 3.7 mmol/L (3.5-5.1); SODIUM SERUM 137 mmol/L (136-145); UREA NITROGEN, BLOOD 16 mg/dL (7-18)
[2017-09-19 16:05] LABS: TROPONIN I < 0.017 ng/mL (0.00-0.056)
[2017-09-19 16:09] LABS: ALANINE AMINOTRANSFERASE 26 U/L (12-78); ALBUMIN 3.9 g/dL (3.4-5.0); ALKALINE PHOSPHATASE 62 U/L (46-116); ASPARTATE AMINOTRANSFERASE 24 U/L (15-37); BILIRUBIN,DIRECT 0.1 mg/dL (0.0-0.2); BILIRUBIN,TOTAL 0.8 mg/dL (0.2-1.0); LIPASE 375 U/L (73-393)
[2017-09-19 16:18] LABS: INR 0.96 (0.87-1.13)
--- NOTE | 2017-09-19 16:51 | NUR ---
IV removed. Catheter intact and site benign. Pressure and 4x4 applied to site. No bleeding noted.
[2017-09-19 16:52] VITALS: BP 140/90
--- NOTE | 2017-09-19 16:52 | NUR ---
Patient discharged to home in stable condition. Written and verbal after care instructions given. Patient verbalizes understanding of instruction.
== END 2017-09-19 16:58 | disposition home or self-care (01) ==
LOC: ER 14:57
DX: K85.90 Acute pancreatitis without necrosis or infection, unspecified (principal); R10.13 Epigastric pain; R10.32 Left lower quadrant pain; R10.31 Right lower quadrant pain; I10 Essential (primary) hypertension; I25.10 Atherosclerotic heart disease of native coronary artery without angina pectoris; I70.0 Atherosclerosis of aorta; K76.0 Fatty (change of) liver, not elsewhere classified; K80.20 Calculus of gallbladder without cholecystitis without obstruction; F10.10 Alcohol abuse, uncomplicated; F17.200 Nicotine dependence, unspecified, uncomplicated; Z98.890 Other specified postprocedural states; Z79.82 Long term (current) use of aspirin
CPT/HCPCS: 36415; 71045-TC; 80048-TC; 80076-TC; 83690-TC; 84484-TC; 85025-TC; 85730-TC; A4606; J2270; J2405; J7040; Z7610

== ENCOUNTER 2017-09-30 21:01 | Emergency (ER) | payer OTHER ==
[~2017-09-30] VITALS: Ht 165.1 cm; Wt 81.6 kg
--- NOTE | 2017-09-30 21:10 | NUR ---
PT TO ER BED 14. PT BIB SELF C/O CP/EPI-GASTRIC PAIN X 2 HOURS. VSS/RESP EVEN UNLABORED/NAD/SKIN WARM AND DRY/AFEBRILE/DENIES N-V-D/AOX4. MD AT BEDSIDE FOR EVAL.
--- NOTE | 2017-09-30 21:15 | NUR ---
LAB AT BEDSIDE TO DRAW.
--- NOTE | 2017-09-30 21:20 | NUR ---
18G IV TO R AC X 1 ATTEMPT USING ASEPTIC TECH, IV FLUSHES EASILY WITH NS. NO S/S INFILTRATION NOTED.
[2017-09-30] MEDS ORDERED: ONDANSETRON HCL/PF 4 MG/2 ML VIAL IVP ONE (21:30)
[2017-09-30] MEDS ORDERED: MAG HYDROX/AL HYDROX/SIMETH 30 ML UDC PO ONE (21:30)
[2017-09-30] MEDS ORDERED: LIDOCAINE VISCOUS 2% UD 15 ML UDC MM ONE (21:30)
[2017-09-30] MEDS ORDERED: LIDOCAINE 2% JEL UROJET 10 ML MM ONE (21:30)
[2017-09-30 21:31] LABS: BASOPHILS # (AUTO) 0.1 /CMM (0.0-0.2); BASOPHILS % (AUTO) 1.7 % (0.0-2.0); EOSINOPHILS % (AUTO) 0.4 % (0.0-6.0); HEMATOCRIT 49 % (39-51); HEMOGLOBIN 17.4 g/dL (13.5-17.5); LYMPHOCYTES # (AUTO) 1.9 /CMM (0.8-4.8); LYMPHOCYTES % (AUTO) 31.1 % (20.0-44.0); MEAN CORPUSCULAR HEMOGLOBIN 34 PG (26.0-33.0); MEAN CORPUSCULAR HGB CONC 36 g/dl (31.0-36.0); MEAN CORPUSCULAR VOLUME 94 fL (80-96); MONOCYTES # (AUTO) 0.5 /CMM (0.1-1.30); MONOCYTES % (AUTO) 8.4 % (2.0-12.0); NEUTROPHILS # (AUTO) 3.7 /CMM (1.8-8.9); NEUTROPHILS % (AUTO) 58.4 % (43.0-81.0); PLATELET COUNT (AUTO) 340 /CMM (150-450); RDW COEFFICIENT OF VARIATION 12.6 (11.5-15.0); RED BLOOD CELL COUNT(AUTO) 5.16 MIL/uL (4.5-6.0); WHITE BLOOD COUNT (AUTO) 6.2 K/uL (4.3-11.0)
--- NOTE | 2017-09-30 21:37 | NUR ---
EMT AT BEDSIDE FOR EKG.
[2017-09-30] MEDS ORDERED: ONDANSETRON HCL/PF 4 MG/2 ML VIAL ONE (21:41)
[2017-09-30] MEDS ORDERED: LIDOCAINE VISCOUS 2% UD 15 ML UDC ONE (21:41)
[2017-09-30] MEDS ORDERED: MAG HYDROX/AL HYDROX/SIMETH 30 ML UDC ONE (21:41)
[2017-09-30 22:16] LABS: CALCIUM, SERUM 9.3 mg/dL (8.5-10.1); CARBON DIOXIDE 21 mmol/L (21-32); CHLORIDE 98 mmol/L (98-107); CREATININE 0.7 mg/dL (0.6-1.3); GLUCOSE 182 mg/dL (74-106); POTASSIUM 3.6 mmol/L (3.5-5.1); SODIUM SERUM 137 mmol/L (136-145); UREA NITROGEN, BLOOD 17 mg/dL (7-18)
[2017-09-30 22:22] LABS: INR 1.06 (0.87-1.13)
[2017-09-30 22:24] LABS: TROPONIN I < 0.017 ng/mL (0.00-0.056)
--- NOTE | 2017-09-30 23:10 | NUR ---
IV removed. Catheter intact and site benign. Pressure and 4x4 applied to site. No bleeding noted. Patient discharged to home in stable condition. Written and verbal after care instructions given. Patient verbalizes understanding of instruction. Patient ambulatory with a steady gait.
[2017-09-30 23:11] VITALS: BP 109/73
== END 2017-09-30 23:11 | disposition home or self-care (01) ==
LOC: ER 21:04
DX: K85.90 Acute pancreatitis without necrosis or infection, unspecified (principal); I10 Essential (primary) hypertension; I25.10 Atherosclerotic heart disease of native coronary artery without angina pectoris; F10.10 Alcohol abuse, uncomplicated; F17.200 Nicotine dependence, unspecified, uncomplicated; Z79.82 Long term (current) use of aspirin
CPT/HCPCS: 36415; 71045-TC; 80048-TC; 83690-TC; 84484-TC; 85025-TC; 85730-TC; A4606; J2405; Z7610

== ENCOUNTER 2017-10-23 05:02 | Emergency (ER) | payer OTHER ==
[~2017-10-23] VITALS: Ht 165.1 cm; Wt 81.6 kg
[~2017-10-23 05:02] MED LIST changes: -BENA20TA2 PO; +BENA20TA9 PO; -GEMF600T3 PO; +GEMF600T4 PO
--- NOTE | 2017-10-23 05:17 | NUR ---
PT AMBULATORY TO ER BED 11. BIBSELF C/O ABD PAIN WITH NAUSEA SINCE LAST NIGHT. DENIES VOMITING. PT PLACED IN GOWN AND ON REWIND OPERATOR. VSS/RESP EVEN UNLABORED/NAD NOTED/SKIN WARM AND DRY/AFEBRILE/AOX4. AWAITING MD FAGAN.
--- NOTE | 2017-10-23 05:20 | NUR ---
AT BEDSIDE FOR EVAL.
--- NOTE | 2017-10-23 05:25 | NUR ---
18G IV TO L AC X 1 ATTEMPT USING ASEPTIC TECH, BLOOD HANDED OVER TO LAB AT THE BEDSIDE. IV FLUSHES EASILY WITH NS, NO S/S INFILTRATION NOTED.
--- NOTE | 2017-10-23 05:27 | NUR ---
Jasmyne curtis in ED - 10/23/17 at 0528 by A[facility] EMT AT BEDSIDE FOR EVAL.
[2017-10-23] MEDS ORDERED: KETOROLAC TROMETHAMINE INJ 30 MG/ML VIAL ONE (05:28)
--- NOTE | 2017-10-23 05:28 | NUR ---
EMT AT BEDSIDE FOR EKG.
[2017-10-23] MEDS ORDERED: ONDANSETRON HCL/PF 4 MG/2 ML VIAL ONE (05:29)
[2017-10-23] MEDS ORDERED: HYDROCODONE/APAP 10/325MG 1 EA TABLET ONE (05:29)
[2017-10-23] MEDS ORDERED: HYDROCODONE/APAP 10/325MG 1 EA TABLET PO ONE (05:30)
[2017-10-23] MEDS ORDERED: ONDANSETRON HCL/PF 4 MG/2 ML VIAL IVP ONE (05:30)
[2017-10-23] MEDS ORDERED: IV NS 0.9% 1,000 ML BAG IV ONE (05:30)
[2017-10-23] MEDS ORDERED: KETOROLAC TROMETHAMINE INJ 30 MG/ML VIAL IV ONE (05:30)
[2017-10-23 05:48] LABS: ALBUMIN 3.9 g/dL (3.4-5.0); ALKALINE PHOSPHATASE 74 U/L (46-116); BILIRUBIN,DIRECT 0.1 mg/dL (0.0-0.2); CARBON DIOXIDE 22 mmol/L (21-32); CHLORIDE 98 mmol/L (98-107); GLUCOSE 226 mg/dL (74-106); LIPASE 196 U/L (73-393); SODIUM SERUM 136 mmol/L (136-145); UREA NITROGEN, BLOOD 6 mg/dL (7-18)
[2017-10-23 05:49] LABS: BASOPHILS % (AUTO) 0.9 % (0.0-2.0); EOSINOPHILS % (AUTO) 0.8 % (0.0-6.0); HEMATOCRIT 44 % (39-51); LYMPHOCYTES # (AUTO) 2.2 /CMM (0.8-4.8); LYMPHOCYTES % (AUTO) 39.4 % (20.0-44.0); MEAN CORPUSCULAR HGB CONC 36 g/dl (31.0-36.0); MEAN CORPUSCULAR VOLUME 96 fL (80-96); MONOCYTES # (AUTO) 0.6 /CMM (0.1-1.30); NEUTROPHILS # (AUTO) 2.8 /CMM (1.8-8.9); NEUTROPHILS % (AUTO) 48.9 % (43.0-81.0); PLATELET COUNT (AUTO) 299 /CMM (150-450); RDW COEFFICIENT OF VARIATION 14.8 (11.5-15.0); RED BLOOD CELL COUNT(AUTO) 4.63 MIL/uL (4.5-6.0)
[2017-10-23 05:50] LABS: TROPONIN I < 0.017 ng/mL (0.00-0.056)
[2017-10-23 05:51] LABS: WHITE BLOOD COUNT (AUTO) 5.6 K/uL (4.3-11.0)
[2017-10-23 06:15] LABS: INR 0.96 (0.87-1.13)
[2017-10-23 06:17] LABS: CREATININE 0.7 mg/dL (0.6-1.3)
[2017-10-23 06:28] LABS: ALANINE AMINOTRANSFERASE 41 U/L (12-78)
[2017-10-23 06:30] LABS: ASPARTATE AMINOTRANSFERASE 53 U/L (15-37)
--- NOTE | 2017-10-23 06:47 | NUR ---
MD AT BEDSIDE SPEAKING WITH PATIENT.
[2017-10-23] MEDS ORDERED: HYDROCODONE/APAP 5/325MG 1 EACH TABLET ONE (06:49)
--- NOTE | 2017-10-23 06:51 | NUR ---
ULTRASOUND AT BEDSIDE.
[2017-10-23] MEDS ORDERED: HYDROCODONE/APAP 5/325MG 1 EACH TABLET PO ONE (07:00)
--- NOTE | 2017-10-23 07:15 | NUR ---
ENDORSED TO [facility].
--- NOTE | 2017-10-23 07:15 | NUR ---
Recieved report from Elaina ODONNELL for cont of care. Will cont of care.
--- NOTE | 2017-10-23 08:37 | NUR ---
IV removed. Catheter intact and site benign. Pressure and 4x4 applied to site. No bleeding noted. Patient discharged to home in stable condition. Written and verbal after care instructions given. Patient verbalizes understanding of instruction.
[2017-10-23 08:39] VITALS: BP 140/86
== END 2017-10-23 08:40 | disposition home or self-care (01) ==
LOC: ER 05:03
DX: R10.13 Epigastric pain (principal); I10 Essential (primary) hypertension; I25.10 Atherosclerotic heart disease of native coronary artery without angina pectoris; F10.10 Alcohol abuse, uncomplicated; E78.00 Pure hypercholesterolemia, unspecified; Z71.6 Tobacco abuse counseling; I25.2 Old myocardial infarction; K85.90 Acute pancreatitis without necrosis or infection, unspecified; Z79.82 Long term (current) use of aspirin
CPT/HCPCS: 36415; 71045; 76705; 80048; 80076; 83690; 84484; 85025; 85730; 93005; 96361; 96374; 96375; 99285; 99406; A4606; G0480; J1885; J2405; J7030; Z7610

== ENCOUNTER 2018-07-23 02:02 | Emergency (ER) | payer MEDICAID, OTHER ==
[~2018-07-23] VITALS: Ht 165.1 cm; Wt 79.4 kg
[~2018-07-23 02:02] MED LIST changes: -GEMF600T4 PO; +GEMF600T5 PO; +HYDR-4354 PO; -HYDR-548 PO
[2018-07-23 02:21] VITALS: BP 150/92
== END 2018-07-23 04:31 | disposition home or self-care (01) ==
LOC: ER 02:07
DX: K64.4 Residual hemorrhoidal skin tags (principal); R04.2 Hemoptysis; F17.210 Nicotine dependence, cigarettes, uncomplicated; I10 Essential (primary) hypertension; I25.10 Atherosclerotic heart disease of native coronary artery without angina pectoris; E78.00 Pure hypercholesterolemia, unspecified; Z87.19 Personal history of other diseases of the digestive system; Z79.82 Long term (current) use of aspirin; Z79.899 Other long term (current) drug therapy; Z95.818 Presence of other cardiac implants and grafts
CPT/HCPCS: 71045; 99283; A4606; Z7610

== ENCOUNTER 2018-09-06 10:05 | Emergency (ER) | payer MEDICAID ==
[~2018-09-06] VITALS: Ht 165.1 cm; Wt 81.6 kg
[2018-09-06] MEDS ORDERED: ONDANSETRON HCL/PF 4 MG/2 ML VIAL ONE (10:38)
[2018-09-06] MEDS ORDERED: MORPHINE SULFATE INJ 4 MG/ML DISP.SYRIN ONE ×2 (10:39→12:16)
--- NOTE | 2018-09-06 10:57 | NUR ---
1L NS BOLUS RIGHT AC 18 G, ZOFAN 4MG IV PUSH, MORHINE 4 MG IV PUSH GIVEN R AC
--- NOTE | 2018-09-06 11:15 | NUR ---
PT TAKEN TO CT VIA RADHA
[2018-09-06 11:43] LABS: APPEARANCE,URINE Clear (CLEAR); BILIRUBIN,URINE Negative (NEGATIVE); BLOOD, URINE Negative Ery/uL (NEGATIVE); COLOR,URINE Yellow (YELLOW); KETONES,URINE Negative (NEGATIVE); LEUKOCYTE ESTERASE ,URINE Negative (NEGATIVE); NITRITE, URINE Negative (NEGATIVE); PROTEIN,URINE Negative (NEGATIVE); UGLUCOSE Negative (NEGATIVE); UROBILINOGEN,URINE 0.2 EU/dL (0.2)
[2018-09-06 11:44] LABS: BASOPHILS % (AUTO) 0.3 % (0.0-2.0); EOSINOPHILS % (AUTO) 0.2 % (0.0-6.0); HEMATOCRIT 47 % (39-51); HEMOGLOBIN 16.3 g/dL (13.5-17.5); LYMPHOCYTES % (AUTO) 23.2 % (20.0-44.0); MEAN CORPUSCULAR HGB CONC 35 g/dl (31.0-36.0); MEAN CORPUSCULAR VOLUME 91 fL (80-96); MONOCYTES # (AUTO) 0.7 /CMM (0.1-1.30); MONOCYTES % (AUTO) 7.7 % (2.0-12.0); NEUTROPHILS % (AUTO) 68.6 % (43.0-81.0); PLATELET COUNT (AUTO) 232 /CMM (150-450); RED BLOOD CELL COUNT(AUTO) 5.16 MIL/uL (4.5-6.0); WHITE BLOOD COUNT (AUTO) 8.7 K/uL (4.3-11.0)
[2018-09-06 11:53] LABS: ALBUMIN 3.9 g/dL (3.4-5.0); BILIRUBIN,TOTAL 0.6 mg/dL (0.2-1.0); CREATININE 0.9 mg/dL (0.6-1.3); POTASSIUM 3.5 mmol/L (3.5-5.1); TOTAL PROTEIN, SERUM 7.9 g/dL (6.4-8.2)
[2018-09-06 12:01] LABS: CALCIUM, SERUM 9.4 mg/dL (8.5-10.1)
--- NOTE | 2018-09-06 12:21 | NUR ---
PT PAIN LEVEL 7/10 GIVEN: 4MG MORPHINE IV PUSH r AC 18 G
[2018-09-06] MEDS ORDERED: PIPERACILLIN /TAZOBACTAM 3.375 G VIAL IV ONE (13:28)
[2018-09-06] MEDS ORDERED: PIPERACILLIN /TAZOBACTAM 3.375 G in IV D5W 50 ML IV ONE (13:30)
--- NOTE | 2018-09-06 14:28 | NUR ---
Patient discharged to home in stable condition. Written and verbal after care instructions given. Patient verbalizes understanding of instruction.IV removed. Catheter intact and site benign. Pressure and 4x4 applied to site. No bleeding noted.
[2018-09-06 14:30] VITALS: BP 151/100
== END 2018-09-06 14:32 | disposition home or self-care (01) ==
LOC: ER 10:05
DX: K57.32 Diverticulitis of large intestine without perforation or abscess without bleeding (principal); I10 Essential (primary) hypertension; I25.10 Atherosclerotic heart disease of native coronary artery without angina pectoris; E78.00 Pure hypercholesterolemia, unspecified; F10.10 Alcohol abuse, uncomplicated; F17.200 Nicotine dependence, unspecified, uncomplicated; E78.1 Pure hyperglyceridemia; Y90.9 Presence of alcohol in blood, level not specified; Z95.5 Presence of coronary angioplasty implant and graft; Z98.890 Other specified postprocedural states; Z79.82 Long term (current) use of aspirin
CPT/HCPCS: 36415; 71045; 74176; 80053; 81001; 83690; 85025; 85730; 96365; 99284; A4606; J2270 ×2; J2405; J2543; J7030; 81000-TC; J7060

== ENCOUNTER 2019-03-29 09:13 | Emergency (ER) | payer MEDICAID, OTHER ==
[~2019-03-29] VITALS: Ht 165.1 cm; Wt 81.6 kg
--- NOTE | 2019-03-29 09:34 | NUR ---
PATIENT BIB SELF TO ER. PATIENT STATES "PAIN STARTED LAST NIGHT AND i WAS SHAKING AND TOOK ADVIL, BUT NOTHING WORKED". NO SOB NOTED. PATIENT IN BED 3 CONNECTED TO MONITOR. AWAITING DOCTOR FOR FURTHER EVAL. WILL CONTINUE TO MONITOR PATIENT FOR SAFETY.
--- NOTE | 2019-03-29 09:50 | NUR ---
BLOOD DRAWN AND TAKEN TO LAB.
[2019-03-29] MEDS ORDERED: ONDANSETRON HCL/PF 4 MG/2 ML VIAL ONE (09:56)
[2019-03-29] MEDS ORDERED: MORPHINE SULFATE INJ 4 MG/ML DISP.SYRIN ONE (09:56)
[2019-03-29] MEDS ORDERED: ONDANSETRON HCL/PF 4 MG/2 ML VIAL IVP ONE (10:00)
[2019-03-29] MEDS ORDERED: IV NS 0.9% 1,000 ML BAG IV ONE (10:00)
[2019-03-29] MEDS ORDERED: MORPHINE SULFATE INJ 2 MG/ML DISP.SYRIN IV ONE (10:00)
--- NOTE | 2019-03-29 10:07 | NUR ---
LIN ALMANZAR TOOK PATIENT FOR CT OF ABDOMEN
[2019-03-29 10:20] LABS: BASOPHILS % (AUTO) 0.5 % (0.0-2.0); EOSINOPHILS % (AUTO) 0.1 % (0.0-6.0); HEMATOCRIT 46 % (39-51); HEMOGLOBIN 15.8 g/dL (13.5-17.5); LYMPHOCYTES # (AUTO) 0.7 /CMM (0.8-4.8); LYMPHOCYTES % (AUTO) 11.3 % (20.0-44.0); MEAN CORPUSCULAR HGB CONC 34 g/dl (31.0-36.0); MEAN CORPUSCULAR VOLUME 95 fL (80-96); MONOCYTES # (AUTO) 0.2 /CMM (0.1-1.30); MONOCYTES % (AUTO) 3.6 % (2.0-12.0); NEUTROPHILS # (AUTO) 5.6 /CMM (1.8-8.9); NEUTROPHILS % (AUTO) 84.5 % (43.0-81.0); PLATELET COUNT (AUTO) 210 /CMM (150-450); RED BLOOD CELL COUNT(AUTO) 4.83 MIL/uL (4.5-6.0)
[2019-03-29 10:22] LABS: WHITE BLOOD COUNT (AUTO) 6.6 K/uL (4.3-11.0)
--- NOTE | 2019-03-29 10:25 | NUR ---
URINE SPECIMEN SENT TO LAB.
[2019-03-29 10:28] LABS: CALCIUM, SERUM 8.3 mg/dL (8.5-10.1); CREATININE 0.8 mg/dL (0.6-1.3); POTASSIUM 3.9 mmol/L (3.5-5.1)
[2019-03-29 10:30] LABS: APPEARANCE,URINE Clear (CLEAR); BILIRUBIN,URINE Negative (NEGATIVE); BLOOD, URINE Small Ery/uL (NEGATIVE); COLOR,URINE Yellow (YELLOW); KETONES,URINE Negative (NEGATIVE); LEUKOCYTE ESTERASE ,URINE Negative (NEGATIVE); NITRITE, URINE Negative (NEGATIVE); PROTEIN,URINE 30 mg/dl (NEGATIVE); UGLUCOSE Negative (NEGATIVE)
[2019-03-29 10:31] LABS: BACTERIA,URINE Rare /HPF (None Seen); WBC,URINE 0-2 /HPF (0-3)
[2019-03-29 10:32] LABS: SQUAMOUS EPITHELIAL CELL,UR Rare /HPF (None Seen)
[2019-03-29] MEDS ORDERED: HYDROMORPHONE 1 MG/1 ML DISP.SYRIN ONE ×2 (10:54→13:43)
[2019-03-29] MEDS ORDERED: ROSU20TA32 PO (10:55)
[2019-03-29] MEDS ORDERED: METO-357 PO (10:55)
--- NOTE | 2019-03-29 11:00 | NUR ---
PATIENT GIVEN DILAUDID 1MG/1ML PER DR. ALVAREZ'S VERBAL ORDER.
[2019-03-29 11:25] LABS: ALBUMIN 3.6 g/dL (3.4-5.0); BILIRUBIN,DIRECT 0.3 mg/dL (0.0-0.2); BILIRUBIN,TOTAL 1.4 mg/dL (0.2-1.0); TOTAL PROTEIN, SERUM 7.3 g/dL (6.4-8.2)
[2019-03-29] MEDS ORDERED: HYDROMORPHONE 1 MG/1 ML DISP.SYRIN IV ONE (11:30)
--- NOTE | 2019-03-29 13:09 | NUR ---
Jasmyne curtis in [facility] - 03/29/19 at 1315 by ALBERT RECGERSON [facility] [id number]
--- NOTE | 2019-03-29 13:49 | NUR ---
ACCEPTED AT [facility] AD[facility]ITTING , DR CARDOSO AWAITING TRANSPORT INFO
--- NOTE | 2019-03-29 13:55 | NUR ---
#FOR REPORT [phone] EXT [phone]
--- NOTE | 2019-03-29 14:00 | NUR ---
IVP DILAUDID 1MG/1ML PER DR. ALVAREZ'S VERBAL ORDER.
--- NOTE | 2019-03-29 14:57 | NUR ---
GIVEN REPORT TO ANTWAN ODONNELL ON THE [facility]TH FLOOR OF [facility].
--- NOTE | 2019-03-29 15:20 | NUR ---
GOT OFF PHONE WITH SHERIDAN-CONDENSER TESTER REGARDING TRANSFER STATUS W/ PT. DELAY IN AMBULANCE.
--- NOTE | 2019-03-29 16:10 | NUR ---
REPORT GIVEN TO EMT [facility] FOR TRANSFER.
[2019-03-29 16:23] VITALS: BP 139/76
--- NOTE | 2019-03-29 16:25 | NUR ---
EMT TRANSPORT TOOK PATIENT AND IS EN ROUTE TOWARDS [facility].
== END 2019-03-29 16:37 | disposition short-term general hospital (02) ==
LOC: ER 09:16
DX: K85.10 Biliary acute pancreatitis without necrosis or infection (principal); K80.20 Calculus of gallbladder without cholecystitis without obstruction; N28.1 Cyst of kidney, acquired; K57.30 Diverticulosis of large intestine without perforation or abscess without bleeding; I10 Essential (primary) hypertension; I25.10 Atherosclerotic heart disease of native coronary artery without angina pectoris; E78.00 Pure hypercholesterolemia, unspecified; F10.10 Alcohol abuse, uncomplicated; F17.200 Nicotine dependence, unspecified, uncomplicated; Y90.9 Presence of alcohol in blood, level not specified; Z95.5 Presence of coronary angioplasty implant and graft; Z98.890 Other specified postprocedural states; Z79.82 Long term (current) use of aspirin
CPT/HCPCS: 36415; 74176; 80048; 80076; 81001; 83690; 85025; 87081; 96374; 96375; 99285; J1170 ×2; J2270; J2405; J7030; 81000-TC

== ENCOUNTER 2019-06-05 19:20 | Emergency (ER) | payer OTHER ==
[~2019-06-05] VITALS: Ht 165.1 cm; Wt 81.6 kg
[~2019-06-05 19:20] MED LIST changes: -FAMO20TA8 PO; -GEMF600T5 PO; -HYDR-4354 PO; +METO-357 PO; -METO25TA20 PO; +ROSU20TA32 PO
--- NOTE | 2019-06-05 19:30 | NUR ---
PT AAOX4. AMBULATORY. PT C/O ABD PAIN X1 DAY. -N/V. PT C/O DEFUSED ABD PAIN RADIATED TO R AND L FLANK. PLACED ON MONITOR AND PULSE OX. RR EVEN AND UNALBORED. NO ACUTE DISTRESS NOTED.
--- NOTE | 2019-06-05 19:40 | NUR ---
URINE SAMPLE COLLECTED AND SENT TO LAB
--- NOTE | 2019-06-05 19:55 | NUR ---
LABS COLLECTED BY CLINICAL STAFF EDUCATOR
[2019-06-05] MEDS ORDERED: IV NS 0.9% 1,000 ML BAG IV ONE (20:00)
[2019-06-05] MEDS ORDERED: KETOROLAC TROMETHAMINE INJ 30 MG/ML VIAL IV ONE (20:00)
[2019-06-05] MEDS ORDERED: HYDROMORPHONE INJ 2 MG/ML DISP.SYRIN IV ONE (20:00)
[2019-06-05] MEDS ORDERED: ONDANSETRON HCL/PF 4 MG/2 ML VIAL IVP ONE (20:00)
[2019-06-05 20:03] LABS: APPEARANCE,URINE Clear (CLEAR); BILIRUBIN,URINE Negative (NEGATIVE); BLOOD, URINE Negative Ery/uL (NEGATIVE); COLOR,URINE Yellow (YELLOW); KETONES,URINE Negative (NEGATIVE); LEUKOCYTE ESTERASE ,URINE Negative (NEGATIVE); NITRITE, URINE Negative (NEGATIVE); PROTEIN,URINE Trace mg/dl (NEGATIVE); UGLUCOSE Negative (NEGATIVE)
[2019-06-05 20:06] LABS: BASOPHILS % (AUTO) 0.2 % (0.0-2.0); EOSINOPHILS % (AUTO) 0.4 % (0.0-6.0); HEMATOCRIT 46 % (39-51); HEMOGLOBIN 16.1 g/dL (13.5-17.5); LYMPHOCYTES # (AUTO) 2.7 /CMM (0.8-4.8); MEAN CORPUSCULAR HGB CONC 35 g/dl (31.0-36.0); MEAN CORPUSCULAR VOLUME 95 fL (80-96); MONOCYTES # (AUTO) 0.9 /CMM (0.1-1.30); MONOCYTES % (AUTO) 7.1 % (2.0-12.0); NEUTROPHILS # (AUTO) 8.7 /CMM (1.8-8.9); NEUTROPHILS % (AUTO) 70.3 % (43.0-81.0); PLATELET COUNT (AUTO) 236 /CMM (150-450); RED BLOOD CELL COUNT(AUTO) 4.86 MIL/uL (4.5-6.0); WHITE BLOOD COUNT (AUTO) 12.4 K/uL (4.3-11.0)
[2019-06-05] MEDS ORDERED: ONDANSETRON HCL/PF 4 MG/2 ML VIAL ONE (20:09)
[2019-06-05] MEDS ORDERED: KETOROLAC TROMETHAMINE 15 MG/ML VIAL ONE (20:09)
[2019-06-05] MEDS ORDERED: HYDROMORPHONE 1 MG/1 ML DISP.SYRIN ONE (20:10)
[2019-06-05 20:14] LABS: BACTERIA,URINE Rare /HPF (None Seen); RBC,URINE NONE SEEN /HPF (0-2); SQUAMOUS EPITHELIAL CELL,UR Few /HPF (None Seen); WBC,URINE NONE SEEN /HPF (0-3)
[2019-06-05 20:18] LABS: ALBUMIN 3.9 g/dL (3.4-5.0); BILIRUBIN,DIRECT 0.1 mg/dL (0.0-0.2); BILIRUBIN,TOTAL 0.7 mg/dL (0.2-1.0); CALCIUM, SERUM 9.8 mg/dL (8.5-10.1); CREATININE 0.9 mg/dL (0.6-1.3); POTASSIUM 3.9 mmol/L (3.5-5.1); TOTAL PROTEIN, SERUM 7.6 g/dL (6.4-8.2)
--- NOTE | 2019-06-05 20:18 | NUR ---
US AT BEDSIDE
--- NOTE | 2019-06-05 20:36 | NUR ---
Pt resting comfortably. Blankets provided
[2019-06-05] MEDS ORDERED: HYDROCODONE/APAP 10/325MG 1 EA TABLET ONE (21:41)
--- NOTE | 2019-06-05 21:55 | NUR ---
IV removed. Catheter intact and site benign. Pressure and 4x4 applied to site. No bleeding noted. Patient discharged to home in stable condition. Written and verbal after care instructions given. Patient verbalizes understanding of instruction AND RX. PT AMBULATED OUT WITH A STEADY GAIT. VSS. PT'S IS DRIVING THE PT. HOME. VSS. NAD NOTED. -
[2019-06-05 21:56] VITALS: BP 145/79
[2019-06-05] MEDS ORDERED: HYDROCODONE/APAP 10/325MG 1 EA TABLET PO ONE (22:00)
== END 2019-06-05 21:50 | disposition home or self-care (01) ==
LOC: ER 19:28
DX: K85.90 Acute pancreatitis without necrosis or infection, unspecified (principal); I10 Essential (primary) hypertension; I25.10 Atherosclerotic heart disease of native coronary artery without angina pectoris; E78.00 Pure hypercholesterolemia, unspecified; F17.200 Nicotine dependence, unspecified, uncomplicated; Z95.818 Presence of other cardiac implants and grafts; Z79.899 Other long term (current) drug therapy; Z79.82 Long term (current) use of aspirin
CPT/HCPCS: 36415; 76705; 80048; 80076; 80307; 81001; 83690; 85025; 96374; 96375; 99284; J1170; J1885; J2405; J7030; 81000-TC; G0480

== ENCOUNTER 2020-12-14 18:50 | Emergency (ER) | payer OTHER ==
[~2020-12-14] VITALS: Ht 165.1 cm; Wt 79.4 kg
[~2020-12-14 18:50] MED LIST changes: -ASPI-1152 PO; +ASPI-1420 PO
--- NOTE | 2020-12-14 19:46 | NUR ---
pt bibself c/o left sided flank pain x4 days. Pt aaox4 breathing evenly and unlabored. Pt attached to monitor and pox. Pt skin warm, dry, and intact. Urine collected and sent to lab. Pt given blanket and call light within reach.
--- NOTE | 2020-12-14 20:09 | NUR ---
left ac 20g initiated. blood obtained and sent to lab
[2020-12-14] MEDS ORDERED: ONDANSETRON HCL/PF 4 MG/2 ML VIAL ONE (20:29)
[2020-12-14] MEDS ORDERED: MORPHINE SULFATE INJ 4 MG/ML DISP.SYRIN ONE (20:30)
[2020-12-14] MEDS ORDERED: ONDANSETRON HCL/PF 4 MG/2 ML VIAL IVP ONE (20:30)
[2020-12-14] MEDS ORDERED: IV NS 0.9% 1,000 ML BAG IV ONE (20:30)
[2020-12-14] MEDS ORDERED: MORPHINE SULFATE INJ 2 MG/ML DISP.SYRIN IV ONE (20:30)
--- NOTE | 2020-12-14 20:38 | NUR ---
verbal order of dilaudid 0.5mg iv
[2020-12-14] MEDS ORDERED: HYDROMORPHONE 1 MG/1 ML DISP.SYRIN ONE ×2 (20:39→21:57)
--- NOTE | 2020-12-14 20:48 | NUR ---
xray at bedside
--- NOTE | 2020-12-14 20:49 | NUR ---
taken to ct
[2020-12-14] MEDS ORDERED: HYDROMORPHONE 1 MG/1 ML DISP.SYRIN IV ONE ×2 (21:00→22:00)
[2020-12-14 21:08] LABS: BILIRUBIN,URINE NEGATIVE (NEGATIVE); COLOR,URINE YELLOW (YELLOW); LEUKOCYTE ESTERASE ,URINE NEGATIVE (NEGATIVE); NITRITE, URINE NEGATIVE (NEGATIVE); PROTEIN,URINE NEGATIVE (NEGATIVE); UGLUCOSE NEGATIVE (NEGATIVE); UROBILINOGEN,URINE 0.2 EU/dL (0.2)
[2020-12-14 21:09] LABS: BASOPHILS % (AUTO) 0.7 % (0.0-2.0); EOSINOPHILS % (AUTO) 0.5 % (0.0-6.0); HEMATOCRIT 45 % (39-51); HEMOGLOBIN 15.8 g/dL (13.5-17.5); LYMPHOCYTES # (AUTO) 2.5 /CMM (0.8-4.8); LYMPHOCYTES % (AUTO) 38.8 % (20.0-44.0); MEAN CORPUSCULAR HGB CONC 35 g/dl (31.0-36.0); MEAN CORPUSCULAR VOLUME 98 fL (80-96); MONOCYTES # (AUTO) 0.5 /CMM (0.1-1.30); MONOCYTES % (AUTO) 8.5 % (2.0-12.0); NEUTROPHILS # (AUTO) 3.3 /CMM (1.8-8.9); NEUTROPHILS % (AUTO) 51.5 % (43.0-81.0); PLATELET COUNT (AUTO) 255 /CMM (150-450); RED BLOOD CELL COUNT(AUTO) 4.53 MIL/uL (4.5-6.0); WHITE BLOOD COUNT (AUTO) 6.4 K/uL (4.3-11.0)
[2020-12-14 22:28] LABS: CALCIUM, SERUM 9.4 mg/dL (8.5-10.1); CARBON DIOXIDE 24 mmol/L (21-32); CHLORIDE 100 mmol/L (98-107); CREATININE 0.9 mg/dL (0.6-1.3); GLUCOSE 192 mg/dL (74-106); POTASSIUM 3.1 mmol/L (3.5-5.1); SODIUM SERUM 137 mmol/L (136-145); UREA NITROGEN, BLOOD 13 mg/dL (7-18)
--- NOTE | 2020-12-14 22:32 | NUR ---
covid swab sent to lab
[2020-12-14 22:34] LABS: ALBUMIN 3.9 g/dL (3.4-5.0); ALKALINE PHOSPHATASE 76 U/L (46-116); BILIRUBIN,DIRECT 0.1 mg/dL (0.0-0.2); BILIRUBIN,TOTAL 0.5 mg/dL (0.2-1.0); TOTAL PROTEIN, SERUM 7.8 g/dL (6.4-8.2)
--- NOTE | 2020-12-14 22:45 | NUR ---
spoke to emmy Cesar from [employer]. Verbal auth given
[2020-12-14] MEDS ORDERED: POTASSIUM CL. PREMIX PERIPHER. 50 ML ONE (22:57)
[2020-12-14] MEDS ORDERED: POTASSIUM CL. PREMIX PERIPHER. 50 ML IV SCH (23:00)
[2020-12-14 23:03] LABS: ASPARTATE AMINOTRANSFERASE 27 U/L (15-37)
[2020-12-14] MEDS ORDERED: POTASSIUM CHLORIDE 20 MEQ TAB.PRT.SR PO ONE ×2 (23:15→23:30)
--- NOTE | 2020-12-14 23:15 | NUR ---
iv KCL 20meq d/c by MD. PO 40meq KCL ordered. Noted and carried out
--- NOTE | 2020-12-14 23:20 | NUR ---
Patient discharged to home in stable condition. Written and verbal after care instructions given. Patient verbalizes understanding of instruction. IV removed. Catheter intact and site benign. Pressure and 4x4 applied to site. No bleeding noted. Pt ambulatory with a steady gait
[2020-12-14 23:31] VITALS: BP 138/80
== END 2020-12-14 23:20 | disposition home or self-care (01) ==
LOC: ER 18:52
DX: R10.9 Unspecified abdominal pain (principal); M54.9 Dorsalgia, unspecified; R10.32 Left lower quadrant pain; E87.6 Hypokalemia; N28.89 Other specified disorders of kidney and ureter; I44.0 Atrioventricular block, first degree; R94.31 Abnormal electrocardiogram [ECG] [EKG]; R73.03 Prediabetes; I25.10 Atherosclerotic heart disease of native coronary artery without angina pectoris; Z95.5 Presence of coronary angioplasty implant and graft; I10 Essential (primary) hypertension; E78.5 Hyperlipidemia, unspecified; Z87.442 Personal history of urinary calculi; K80.20 Calculus of gallbladder without cholecystitis without obstruction; K57.90 Diverticulosis of intestine, part unspecified, without perforation or abscess without bleeding; Z79.02 Long term (current) use of antithrombotics/antiplatelets; Z79.899 Other long term (current) drug therapy; Z20.822 Contact with and (suspected) exposure to COVID-19
CPT/HCPCS: 36415; 71045; 74176; 80048; 80076; 81003; 83690; 84484; 85025; 85730; 87081; 87426; 93005; 96361; 96365; 96375; 96376; 99285; C9803; J1170 ×2; J2405; J3480; J7030; J2270

== ENCOUNTER 2021-01-20 01:45 | Inpatient (IN) | payer OTHER ==
[~2021-01-20] VITALS: Ht 165.1 cm; Wt 77.6 kg
[2021-01-20] MEDS ORDERED: MORPHINE SULFATE INJ 2 MG/ML DISP.SYRIN IV ONE ×3 (02:00→06:00)
[2021-01-20] MEDS ORDERED: IV NS 0.9% 1,000 ML BAG IV ONE (02:00)
[2021-01-20] MEDS ORDERED: MORPHINE SULFATE INJ 4 MG/ML DISP.SYRIN ONE ×3 (02:03→05:40)
--- NOTE | 2021-01-20 02:16 | NUR ---
PATIENT REFUSED EKG, NOTIFIED.
[2021-01-20 02:17] LABS: BASOPHILS % (AUTO) 0.5 % (0.0-2.0); EOSINOPHILS % (AUTO) 0.8 % (0.0-6.0); HEMATOCRIT 45 % (39-51); HEMOGLOBIN 16.1 g/dL (13.5-17.5); LYMPHOCYTES # (AUTO) 3.1 K/uL (0.8-4.8); MEAN CORPUSCULAR HGB CONC 36 g/dl (31.0-36.0); MEAN CORPUSCULAR VOLUME 97 fL (80-96); MONOCYTES # (AUTO) 0.5 K/uL (0.1-1.30); MONOCYTES % (AUTO) 8.4 % (2.0-12.0); NEUTROPHILS # (AUTO) 2.5 K/uL (1.8-8.9); NEUTROPHILS % (AUTO) 40.3 % (43.0-81.0); PLATELET COUNT (AUTO) 259 K/uL (150-450); RED BLOOD CELL COUNT(AUTO) 4.68 MIL/uL (4.5-6.0); WHITE BLOOD COUNT (AUTO) 6.2 K/uL (4.3-11.0)
[2021-01-20 02:20] LABS: CALCIUM, SERUM 8.8 mg/dL (8.5-10.1); CARBON DIOXIDE 25 mmol/L (21-32); CHLORIDE 98 mmol/L (98-107); CREATININE 0.8 mg/dL (0.6-1.3); GLUCOSE 148 mg/dL (74-106); POTASSIUM 3.9 mmol/L (3.5-5.1); SODIUM SERUM 134 mmol/L (136-145); UREA NITROGEN, BLOOD 17 mg/dL (7-18)
[2021-01-20] MEDS ORDERED: CT SWABBABLE VALVE TRANS SET 1 EA INFUS.SET MC ONE (02:25)
[2021-01-20] MEDS ORDERED: IOHEXOL-300 100 ML VIAL IV ONE (02:25)
[2021-01-20] MEDS ORDERED: IV NS 0.9% 250 ML IV ONE (02:26)
--- NOTE | 2021-01-20 02:44 | NUR ---
PATIENT TAKEN TO CT
--- NOTE | 2021-01-20 03:06 | NUR ---
PATIENT RETURNED FROM CT
[2021-01-20 03:39] LABS: ALKALINE PHOSPHATASE 69 U/L (46-116); BILIRUBIN,DIRECT 0.1 mg/dL (0.0-0.2); BILIRUBIN,TOTAL 0.7 mg/dL (0.2-1.0)
[2021-01-20 03:40] LABS: ALBUMIN 4.1 g/dL (3.4-5.0); LIPASE 474 U/L (73-393); TOTAL PROTEIN, SERUM 8.1 g/dL (6.4-8.2)
[2021-01-20 04:06] LABS: ALANINE AMINOTRANSFERASE 33 U/L (12-78)
[2021-01-20 04:11] LABS: ASPARTATE AMINOTRANSFERASE 31 U/L (15-37)
--- NOTE | 2021-01-20 04:54 | NUR ---
CALLED [facility] FOR READ.
--- NOTE | 2021-01-20 05:12 | NUR ---
called kiera for the second time for ct read
[2021-01-20] MEDS ORDERED: IV NS 0.9% 1,000 ML IV STA (06:02)
--- NOTE | 2021-01-20 06:32 | NUR ---
COVID SWAB COLLECTED AND SENT TO LAB
--- NOTE | 2021-01-20 07:05 | NUR ---
SPOKE TO FOOD TRUCK CATERER AND REC'D VERBAL AUTH TO ADMIT THE PT
--- NOTE | 2021-01-20 07:40 | NUR ---
med recon notes pt refusing to verify his home medications, stated, "i don't want to say, i want to go home." vance salvador made aware.
--- NOTE | 2021-01-20 07:45 | NUR ---
[facility] CALLED CLIENT SERVER PROGRAMMER PAGED.
[2021-01-20] MEDS ORDERED: GEMF600T90 PO (07:50)
[2021-01-20] MEDS ORDERED: OMEP40CA21 PO (07:50)
[2021-01-20] MEDS ORDERED: OMEG1CAP55 PO (07:50)
--- NOTE | 2021-01-20 07:53 | NUR ---
report given to Isabella ODONNELL for ricki.
--- NOTE | 2021-01-20 08:48 | NUR ---
report given to Christie ODONNELL for ricki.
--- NOTE | 2021-01-20 09:00 | NUR ---
wheeled patient via wheelchair in no distress going to room 306. RN assigned at bedside to assume care.
--- NOTE | 2021-01-20 09:10 | NUR ---
MS/RN RECEIVING NOTES RECEIVED PATIENT FROM ER VIA WHEELCHAIR, PATIENT IS ALERT AND ORIENTED X4, ABLE TO MAKE NEEDS KNOWN. ON ROOM AIR WITH NO DISTRESS NOTED. AMBULATING STEADY. INTACT SKIN. IV ACCESS ON LEFT AC #18G IS PATENT AND INTACT ON SALINE LOCK. ORIENTED PATIENT TO THE UNIT AND SAFE USE OF EQUIPMENTS, EDUCATED PATIENT OF DIAGNOSIS AND GOALS, PATIENT ABLE TO VERBALIZED UNDERSTANDING. SAFETY PRECAUTIONS OBSERVED. BED LOCKED ON LOWEST POSITION, SIDE RAILS UPX2, CALL LIGHT AND TABLE WITHIN REACH. WILL CONTINUE TO MONITOR PATIENT.
[2021-01-20 09:45] VITALS: BP 130/78
[2021-01-20] MEDS ORDERED: LORAZEPAM INJ 2 MG/ML VIAL IV PRN (10:30)
[2021-01-20] MEDS ORDERED: MAGNESIUM HYDROXIDE 30 ML UDC PO PRN (10:30)
[2021-01-20] MEDS ORDERED: PHARMACY ADD 1 AMP MVI TO IVF DAILY ONE BAG XX PRN (10:30)
[2021-01-20] MEDS ORDERED: ACETAMINOPHEN 325 MG TABLET PO PRN (10:30)
[2021-01-20] MEDS ORDERED: ZOLPIDEM TARTRATE 5 MG TABLET PO PRN (10:30)
[2021-01-20] MEDS: IV NS 0.9% 1,000 ML IV SCH ×3 (10:30→22:03)
[2021-01-20] MEDS ORDERED: Z GUARD REMEDY 2 OZ OINT TP PRN (10:30)
[2021-01-20] MEDS ORDERED: ONDANSETRON HCL/PF 4 MG/2 ML VIAL IVP PRN (10:30)
[2021-01-20] MEDS ORDERED: MORPHINE SULFATE INJ 2 MG/ML DISP.SYRIN IV PRN (10:30)
[2021-01-20] MEDS ORDERED: MVI ADULT 10ML VIAL = 1AMP 10 ML in IV NS 0.9% 1,000 ML IV PRN (11:00)
[2021-01-20] MEDS: NICOTINE PATCH (21MG) 21 MG PATCH.TD24 TD SCH (11:13)
[2021-01-20] MEDS: Folic acid 1 MG in IV D5W 50 ML IV SCH (11:15)
[2021-01-20] MEDS: Thiamine 100 MG in IV D5W 50 ML IV SCH (11:15)
[2021-01-20] MEDS: MORPHINE SULFATE INJ 2 MG/ML DISP.SYRIN IV PRN ×2 (14:41→18:03)
[2021-01-20 15:44] VITALS: BP 132/79
[2021-01-20] MEDS: GEMFIBROZIL 600 MG TABLET PO SCH (17:00)
--- NOTE | 2021-01-20 19:10 | NUR ---
MS RN OPENING NOTES: RECEIVED PATIENT IN BED, AWAKE, A/O X4. NO S/S OF DISTRESS NOTED. CALL LIGHT WITHIN REACH. BED IN LOWEST AND LOCKED POSITION. NPO, PATIENT IS AWARE. WITH SIGNIFICANT OTHER AT THE BEDSIDE.
--- NOTE | 2021-01-20 19:11 | NUR ---
MS/RN CLOSING NOTES PATIENT IS ALERT AND ORIENTED X4, ABLE TO MAKE NEEDS KNOWN. ON ROOM AIR WITH NO DISTRESS NOTED. AMBULATING STEADY. INTACT SKIN. IV ACCESS ON LEFT AC #18G IS PATENT AND INTACT ON SALINE LOCK. SAFETY PRECAUTIONS OBSERVED. BED LOCKED ON LOWEST POSITION, SIDE RAILS UPX2, CALL LIGHT AND TABLE WITHIN REACH. WILL ENDORSE TO THE NEXT SHIFT FOR CONTINUITY OF CARE.
[2021-01-20 20:00] VITALS: BP 138/77
--- NOTE | 2021-01-20 20:21 | NUR ---
PATIENT SAID THAT MORPHINE IS NOT WORKING FOR HIS PAIN AND HE WANTS DILAUDID INSTEAD, AND HE IS ASKING FOR SLEEPING PILL, INFORMED MARKETING ENGINEER GABRIEL.
[2021-01-20] MEDS: HYDROMORPHONE 1 MG/1 ML DISP.SYRIN IV PRN (20:57)
--- NOTE | 2021-01-20 21:49 | NUR ---
PATIENT STATES GOAL FOR PAIN LEVEL IS 4/10.
--- NOTE | 2021-01-20 22:20 | NUR ---
PATIENT COMPLAINED OF SEVERE HEARTBURN, INFORMED WEBMASTER RIOS.
[2021-01-20] MEDS: MAG HYDROX/AL HYDROX/SIMETH 30 ML UDC PO PRN (22:43)
[2021-01-21] MEDS: HYDROMORPHONE 1 MG/1 ML DISP.SYRIN IV PRN ×3 (04:12→12:37)
[2021-01-21] MEDS: MAG HYDROX/AL HYDROX/SIMETH 30 ML UDC PO PRN ×2 (05:13→11:42)
--- NOTE | 2021-01-21 06:45 | NUR ---
MS RN CLOSING NOTES: PATIENT IN BED, ASLEEP, AROUSABLE. NO S/S OF DISTRESS NOTED. CALL LIGHT WITHIN REACH. BED IN LOWEST AND LOCKED POSITION. AMBULATORY. RESTED THROUGHOUT THE NIGHT. COMPLAINING OF HEARTBURN ON AND OFF, MEDICATED WITH MAALOX 2X DURING THE SHIFT, EFFECTIVE. STILL NPO. COMPLAINED OF PAIN DURING THE SHIFT, MEDICATED WITH PRN DILAUDID IV.
[2021-01-21 06:56] LABS: BASOPHILS % (AUTO) 0.3 % (0.0-2.0); EOSINOPHILS % (AUTO) 1.1 % (0.0-6.0); HEMATOCRIT 39 % (39-51); HEMOGLOBIN 13.8 g/dL (13.5-17.5); LYMPHOCYTES # (AUTO) 1.8 K/uL (0.8-4.8); LYMPHOCYTES % (AUTO) 39.9 % (20.0-44.0); MEAN CORPUSCULAR HGB CONC 35 g/dl (31.0-36.0); MEAN CORPUSCULAR VOLUME 97 fL (80-96); MONOCYTES # (AUTO) 0.3 K/uL (0.1-1.30); MONOCYTES % (AUTO) 6.6 % (2.0-12.0); NEUTROPHILS # (AUTO) 2.4 K/uL (1.8-8.9); NEUTROPHILS % (AUTO) 52.1 % (43.0-81.0); PLATELET COUNT (AUTO) 200 K/uL (150-450); RED BLOOD CELL COUNT(AUTO) 4.06 MIL/uL (4.5-6.0); WHITE BLOOD COUNT (AUTO) 4.6 K/uL (4.3-11.0)
--- NOTE | 2021-01-21 07:05 | NUR ---
RN OPENING NOTE RECEIVED PATIENT IN BED. A/O X4. ON ROOM AIR, NO SOB NOTED. IN NO APPARENT DISTRESS. IV ACCESS ON L AC #18 G, INTACT AND PATENT, NS @ 100 ML/HR. SAFETY MEASURES MAINTAINED. BED IN LOWEST POSITION, BRAKES LOCKED. SIDE RAILS UP X2. CALL LIGHT WITHIN REACH. WILL CONTINUE PLAN OF CARE.
[2021-01-21 07:56] VITALS: BP 141/83
--- NOTE | 2021-01-21 07:59 | NUR ---
RN NOTE DR. HUTCHINSON VERBALLY ORDERED CLEAR LIQUID DIET FOR THE PT AND TO ADVANCE DIET TOLERATED. ORDER WAS READ BACK AND CARRIED OUT.
[2021-01-21 08:13] LABS: CALCIUM, SERUM 8.2 mg/dL (8.5-10.1); CREATININE 0.8 mg/dL (0.6-1.3); MAGNESIUM 1.8 mg/dL (1.8-2.4); PHOSPHORUS 2.8 mg/dL (2.5-4.9); POTASSIUM 3.6 mmol/L (3.5-5.1)
[2021-01-21] MEDS: GEMFIBROZIL 600 MG TABLET PO SCH (08:26)
[2021-01-21 08:27] VITALS: BP 141/83
[2021-01-21] MEDS: NICOTINE PATCH (21MG) 21 MG PATCH.TD24 TD SCH (08:28)
[2021-01-21] MEDS ORDERED: IV NS 0.9% 1,000 ML IV PRN (08:30)
[2021-01-21] MEDS ORDERED: CLOPIDOGREL BISULFATE 75 MG TABLET PO SCH (09:00)
[2021-01-21] MEDS ORDERED: ASPIRIN EC 81 MG TABLET.DR PO SCH (09:00)
[2021-01-21] MEDS ORDERED: BENAZEPRIL HCL 20 MG TABLET PO SCH (09:00)
[2021-01-21] MEDS ORDERED: METOPROLOL SUCCINATE 50 MG TAB.SR.24H PO SCH (09:00)
[2021-01-21] MEDS: Thiamine 100 MG in IV D5W 50 ML IV SCH (10:51)
[2021-01-21] MEDS: Folic acid 1 MG in IV D5W 50 ML IV SCH (10:51)
--- NOTE | 2021-01-21 14:54 | NUR ---
RN NOTE: AMA PATIENT LEFT AMA. BEFORE HE LEFT HE ASKED ME IF HE CAN GO OUT FOR A WHILE AND JUST GO BACK AFTER. BUT I TOLD HIM THAT'S NOT HOW IT WORKS HERE. FEW HOURS AFTER HE TOLD ME THAT HE WANTS TO GO AMA BECAUSE HER 45 YR OLD SISTER HAS A STROKE AND NOBODY IS TAKING CARE OF HER. PT IS PERSISTENT TO LEAVE. DR HUTCHINSON IS MADE AWARE. PT SIGNED THE AMA FORM. REMOVED IV ACCESS AND ID WRISTBAND. HEALTH TEACHING WAS ALSO GIVEN.
[2021-01-22] MEDS ORDERED: FOLIC ACID 1 MG TABLET PO SCH (09:00)
[2021-01-22] MEDS ORDERED: THIAMINE HCL 100 MG TABLET PO SCH (09:00)
== END 2021-01-21 15:00 | disposition left against medical advice (07) | DRG 282 ==
LOC: ER 01:47 → MED 08:56
PROVIDERS: ADMIT Family Medicine; ATTEND Family Medicine
DX: K85.20 Alcohol induced acute pancreatitis without necrosis or infection (principal); D72.820 Lymphocytosis (symptomatic); E66.9 Obesity, unspecified; E78.1 Pure hyperglyceridemia; E11.9 Type 2 diabetes mellitus without complications; K86.0 Alcohol-induced chronic pancreatitis; I25.10 Atherosclerotic heart disease of native coronary artery without angina pectoris; F10.129 Alcohol abuse with intoxication, unspecified; Y90.9 Presence of alcohol in blood, level not specified; Z20.822 Contact with and (suspected) exposure to COVID-19; F17.210 Nicotine dependence, cigarettes, uncomplicated; I10 Essential (primary) hypertension; Z79.02 Long term (current) use of antithrombotics/antiplatelets; Z71.6 Tobacco abuse counseling; Z79.84 Long term (current) use of oral hypoglycemic drugs; Z95.5 Presence of coronary angioplasty implant and graft
CPT/HCPCS: 36415; 80048-TC; 80061-TC; 80076-TC; 83690-TC; 83735-TC; 84100-TC; 84484-TC; 85025-TC; 87081-TC; C9803; G0378; J1170; J2270; J3411; J3490; J7030; J7050; J7060; Q9967

== ENCOUNTER 2021-05-24 23:12 | Emergency (ER) | payer OTHER ==
[~2021-05-24] VITALS: Ht 167.6 cm; Wt 79.4 kg
[~2021-05-24 23:12] MED LIST changes: +GEMF600T90 PO; +OMEG1CAP55 PO; +OMEP40CA21 PO; -ROSU20TA32 PO
--- NOTE | 2021-05-24 23:20 | NUR ---
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 +HTN AT HOME. GIVEN 1NITRO SL. PT ALERT AND ORIENTED X3. AMBULATORY WITH NON LABORED BREATHING. PT PLACED ON A MONITOR.
[2021-05-24] MEDS ORDERED: KETOROLAC TROMETHAMINE INJ 30 MG/ML VIAL IV ONE (23:30)
[2021-05-24] MEDS ORDERED: KETOROLAC TROMETHAMINE 15 MG/ML VIAL ONE (23:31)
--- NOTE | 2021-05-24 23:36 | NUR ---
REGIONAL DIRECTOR OF FINANCE @ BEDSIDE
[2021-05-24 23:43] LABS: BASOPHILS % (AUTO) 0.8 % (0.0-2.0); EOSINOPHILS % (AUTO) 1.4 % (0.0-6.0); HEMATOCRIT 44 % (39-51); HEMOGLOBIN 15.8 g/dL (13.5-17.5); LYMPHOCYTES % (AUTO) 53.7 % (20.0-44.0); MEAN CORPUSCULAR HGB CONC 36 g/dl (31.0-36.0); MEAN CORPUSCULAR VOLUME 93 fL (80-96); MONOCYTES # (AUTO) 0.4 K/uL (0.1-1.30); MONOCYTES % (AUTO) 7.5 % (2.0-12.0); NEUTROPHILS # (AUTO) 2.1 K/uL (1.8-8.9); NEUTROPHILS % (AUTO) 36.6 % (43.0-81.0); PLATELET COUNT (AUTO) 230 K/uL (150-450); RED BLOOD CELL COUNT(AUTO) 4.75 MIL/uL (4.5-6.0); WHITE BLOOD COUNT (AUTO) 5.6 K/uL (4.3-11.0)
[2021-05-25 00:02] LABS: CALCIUM, SERUM 7.9 mg/dL (8.5-10.1); CREATININE 0.8 mg/dL (0.6-1.3); POTASSIUM 3.9 mmol/L (3.5-5.1)
[2021-05-25] MEDS ORDERED: ONDANSETRON HCL/PF 4 MG/2 ML VIAL IVP PRN (01:00)
[2021-05-25] MEDS ORDERED: MAG HYDROX/AL HYDROX/SIMETH 30 ML UDC PO PRN (01:00)
[2021-05-25] MEDS ORDERED: Z GUARD REMEDY 2 OZ OINT TP PRN (01:00)
[2021-05-25] MEDS ORDERED: ZOLPIDEM TARTRATE 5 MG TABLET PO PRN (01:00)
[2021-05-25] MEDS ORDERED: ACETAMINOPHEN 325 MG TABLET PO PRN (01:00)
[2021-05-25] MEDS ORDERED: MAGNESIUM HYDROXIDE 30 ML UDC PO PRN (01:00)
[2021-05-25] MEDS ORDERED: ZOLPIDEM TARTRATE 5 MG TABLET ONE (01:12)
--- NOTE | 2021-05-25 01:35 | NUR ---
MRSA SWAB COLLECTED AND SENT TO LAB. PATIENT'S BELONGINGS LIST DONE.
[2021-05-25 02:22] VITALS: BP 141/81
[2021-05-25] MEDS ORDERED: PANTOPRAZOLE 40 MG TABLET.DR PO SCH (07:30)
[2021-05-25] MEDS ORDERED: ENOXAPARIN SODIUM 40 MG/0.4 ML DISP.SYRIN SQ SCH (09:00)
[2021-05-25] MEDS ORDERED: ASPIRIN 81 MG TAB.CHEW PO SCH (09:00)
== END 2021-05-25 02:22 | disposition left against medical advice (07) ==
LOC: ER 23:13
DX: R07.2 Precordial pain (principal); Z76.5 Malingerer [conscious simulation]; Z20.822 Contact with and (suspected) exposure to COVID-19; Z53.29 Procedure and treatment not carried out because of patient's decision for other reasons; I25.10 Atherosclerotic heart disease of native coronary artery without angina pectoris; Z95.5 Presence of coronary angioplasty implant and graft; I10 Essential (primary) hypertension; R73.03 Prediabetes; E78.5 Hyperlipidemia, unspecified; Z87.19 Personal history of other diseases of the digestive system; F17.200 Nicotine dependence, unspecified, uncomplicated; Z79.82 Long term (current) use of aspirin; Z79.899 Other long term (current) drug therapy
CPT/HCPCS: 36415; 71045; 80048; 84484; 85025; 87426; 93005; 96374; 99291; C9803; J1885

== ENCOUNTER 2021-10-19 06:47 | Emergency (ER) | payer OTHER ==
[~2021-10-19] VITALS: Ht 165.1 cm; Wt 77.1 kg
--- NOTE | 2021-10-19 07:01 | NUR ---
BIBS FOR C/O R SIDED ABD, L SHOULDER AND LUE PAIN X 20 MIN PAN DEVULCANIZER. PT AWAKE AND ALERT X4 AMBULAOTRY WITH STEADY GAIT. PT BREATHING EVEN AND UNLABPRED TOLERATING ROOM AIR WELL. PLACED ON MONITOR AND V/S WNL.
[2021-10-19 07:33] LABS: BASOPHILS % (AUTO) 0.6 % (0.0-2.0); HEMATOCRIT 39 % (39-51); HEMOGLOBIN 13.9 g/dL (13.5-17.5); LYMPHOCYTES # (AUTO) 1.8 K/uL (0.8-4.8); LYMPHOCYTES % (AUTO) 48.2 % (20.0-44.0); MEAN CORPUSCULAR HGB CONC 36 g/dl (31.0-36.0); MEAN CORPUSCULAR VOLUME 97 fL (80-96); MONOCYTES # (AUTO) 0.3 K/uL (0.1-1.30); NEUTROPHILS # (AUTO) 1.5 K/uL (1.8-8.9); NEUTROPHILS % (AUTO) 42.2 % (43.0-81.0); PLATELET COUNT (AUTO) 219 K/uL (150-450); RED BLOOD CELL COUNT(AUTO) 4.03 MIL/uL (4.5-6.0); WHITE BLOOD COUNT (AUTO) 3.7 K/uL (4.3-11.0)
[2021-10-19 07:55] LABS: CARBON DIOXIDE 22 mmol/L (21-32); CHLORIDE 99 mmol/L (98-107); CREATININE 0.7 mg/dL (0.6-1.3); GLUCOSE 190 mg/dL (74-106); POTASSIUM 3.5 mmol/L (3.5-5.1); SODIUM SERUM 136 mmol/L (136-145); UREA NITROGEN, BLOOD 15 mg/dL (7-18)
--- NOTE | 2021-10-19 07:55 | NUR ---
X-RAY TECH. AT BED SIDE
[2021-10-19 08:42] LABS: ALANINE AMINOTRANSFERASE 21 U/L (12-78); ALBUMIN 3.4 g/dL (3.4-5.0); ALKALINE PHOSPHATASE 62 U/L (46-116); BILIRUBIN,DIRECT 0.1 mg/dL (0.0-0.2); BILIRUBIN,TOTAL 0.7 mg/dL (0.2-1.0); LIPASE 303 U/L (73-393); TOTAL PROTEIN, SERUM 6.8 g/dL (6.4-8.2)
--- NOTE | 2021-10-19 09:25 | NUR ---
CALL FROM REM FROM LAB,AST IS BEING DILUTED AND BEING RUN AGAIN,DR EASTMAN MADE AWARE
[2021-10-19 09:51] LABS: ASPARTATE AMINOTRANSFERASE 22 U/L (15-37)
[2021-10-19] MEDS ORDERED: ZOLP10TA2 PO (10:01)
--- NOTE | 2021-10-19 10:10 | NUR ---
Patient discharged to home in stable condition. Written and verbal after care instructions given. Patient verbalizes understanding of instruction.
[2021-10-19 10:17] VITALS: BP 156/93
== END 2021-10-19 10:10 | disposition home or self-care (01) ==
LOC: ER 06:51
DX: K80.20 Calculus of gallbladder without cholecystitis without obstruction (principal); F41.9 Anxiety disorder, unspecified; R03.0 Elevated blood-pressure reading, without diagnosis of hypertension; I10 Essential (primary) hypertension; E78.5 Hyperlipidemia, unspecified; I25.10 Atherosclerotic heart disease of native coronary artery without angina pectoris; Z87.19 Personal history of other diseases of the digestive system; F17.200 Nicotine dependence, unspecified, uncomplicated; Z79.82 Long term (current) use of aspirin; Z79.899 Other long term (current) drug therapy
CPT/HCPCS: 36415; 71045-TC; 80048-TC; 80076-TC; 83690-TC; 84484-TC; 85025-TC

== ENCOUNTER 2021-11-04 07:16 | Emergency (ER) | payer OTHER ==
[~2021-11-04] VITALS: Ht 165.1 cm; Wt 77.1 kg
[~2021-11-04 07:16] MED LIST changes: +ZOLP10TA2 PO
--- NOTE | 2021-11-04 07:27 | NUR ---
KOTASECAITLIN C/O HEAD PRESSURE +HYPERTENSIVE MISSED HIS BENAZEPRIL 40MG PO MED THIS MORNING. DENIES CHEST PAIN. ATTACHED TO MONITOR. WARM BLNAKET PROVIDED FOR COMFORT. AWAITING MD ORDERS.
[2021-11-04] MEDS ORDERED: ONDANSETRON 4 MG TAB.RAPDIS ONE (07:42)
[2021-11-04] MEDS ORDERED: BENAZEPRIL HCL 10 MG TABLET ONE (07:45)
--- NOTE | 2021-11-04 07:49 | NUR ---
IV ESTABLISHED R AC 20G. LABS DRAWN AND COLLECTED AT BEDSIDE.
--- NOTE | 2021-11-04 07:56 | NUR ---
Note ever in EDM - 11/04/21 at 0759 by ALBERT TO ER BED 3. BIBSELF C/O HEAD PRESSURE +HYPERTENSIVE MISSED HIS BENAZEPRIL 40MG PO MED THIS MORNING. PT DENIES ANY CHEST PAIN. ATTCHED TO MONITOR. WARM BLANKET PROVIDED FOR COMFORT. AWAITING MD ORDERS.
[2021-11-04 07:58] LABS: BASOPHILS % (AUTO) 0.7 % (0.0-2.0); EOSINOPHILS % (AUTO) 1.1 % (0.0-6.0); HEMATOCRIT 42 % (39-51); HEMOGLOBIN 14.9 g/dL (13.5-17.5); LYMPHOCYTES # (AUTO) 1.7 K/uL (0.8-4.8); LYMPHOCYTES % (AUTO) 49.9 % (20.0-44.0); MEAN CORPUSCULAR HGB CONC 36 g/dl (31.0-36.0); MEAN CORPUSCULAR VOLUME 97 fL (80-96); MONOCYTES # (AUTO) 0.4 K/uL (0.1-1.30); MONOCYTES % (AUTO) 11.2 % (2.0-12.0); NEUTROPHILS # (AUTO) 1.2 K/uL (1.8-8.9); NEUTROPHILS % (AUTO) 37.1 % (43.0-81.0); PLATELET COUNT (AUTO) 259 K/uL (150-450); WHITE BLOOD COUNT (AUTO) 3.4 K/uL (4.3-11.0)
[2021-11-04] MEDS ORDERED: ONDANSETRON 4 MG TAB.RAPDIS SL ONE (08:00)
[2021-11-04] MEDS ORDERED: BENAZEPRIL HCL 10 MG TABLET PO ONE (08:00)
--- NOTE | 2021-11-04 08:07 | NUR ---
X RAY AT BEDSIDE
[2021-11-04 08:22] LABS: ALBUMIN 3.8 g/dL (3.4-5.0); BILIRUBIN,TOTAL 0.8 mg/dL (0.2-1.0); CALCIUM, SERUM 8.7 mg/dL (8.5-10.1); CREATININE 0.9 mg/dL (0.6-1.3); TOTAL PROTEIN, SERUM 7.5 g/dL (6.4-8.2)
[2021-11-04 08:57] LABS: POTASSIUM 4.4 mmol/L (3.5-5.1)
--- NOTE | 2021-11-04 09:51 | NUR ---
dcIV removed. Catheter intact and site benign. Pressure and 4x4 applied to site. No bleeding noted.Patient discharged to home in stable condition. Written and verbal after care instructions given. Patient verbalizes understanding of instruction.
[2021-11-04 09:52] VITALS: BP 147/89
== END 2021-11-04 09:52 | disposition home or self-care (01) ==
LOC: ER 07:19
DX: R07.89 Other chest pain (principal); R03.0 Elevated blood-pressure reading, without diagnosis of hypertension; I10 Essential (primary) hypertension; I25.10 Atherosclerotic heart disease of native coronary artery without angina pectoris; E78.5 Hyperlipidemia, unspecified; F17.200 Nicotine dependence, unspecified, uncomplicated; Z87.19 Personal history of other diseases of the digestive system; Z79.899 Other long term (current) drug therapy
CPT/HCPCS: 36415; 71045; 80053; 84484; 85025; 93005; 99285; Q0162

== ENCOUNTER 2021-12-08 20:45 | Emergency (ER) | payer OTHER ==
[~2021-12-08] VITALS: Ht 165.1 cm; Wt 77.1 kg
--- NOTE | 2021-12-08 21:20 | NUR ---
BIBS C/O R SIDED ABDOMINAL PAIN AND HEADACHE/PAIN IN BACK OF HEAD X6 HOURS DENIES N/V/D. CHANGED INTO GOWN AND PLACVED ON MONITOR AND V/S WNL.
[2021-12-08 21:53] LABS: BASOPHILS % (AUTO) 0.9 % (0.0-2.0); EOSINOPHILS % (AUTO) 1.1 % (0.0-6.0); HEMATOCRIT 41 % (39-51); HEMOGLOBIN 14.9 g/dL (13.5-17.5); LYMPHOCYTES # (AUTO) 2.3 K/uL (0.8-4.8); LYMPHOCYTES % (AUTO) 49.8 % (20.0-44.0); MEAN CORPUSCULAR HGB CONC 37 g/dl (31.0-36.0); MEAN CORPUSCULAR VOLUME 95 fL (80-96); MONOCYTES # (AUTO) 0.4 K/uL (0.1-1.30); NEUTROPHILS # (AUTO) 1.8 K/uL (1.8-8.9); NEUTROPHILS % (AUTO) 40.2 % (43.0-81.0); PLATELET COUNT (AUTO) 230 K/uL (150-450); WHITE BLOOD COUNT (AUTO) 4.5 K/uL (4.3-11.0)
[2021-12-08 22:23] LABS: CALCIUM, SERUM 8.3 mg/dL (8.5-10.1); CARBON DIOXIDE 21 mmol/L (21-32); CHLORIDE 104 mmol/L (98-107); CREATININE 0.6 mg/dL (0.6-1.3); GLUCOSE 188 mg/dL (74-106); POTASSIUM 3.5 mmol/L (3.5-5.1); SODIUM SERUM 136 mmol/L (136-145); UREA NITROGEN, BLOOD 14 mg/dL (7-18)
[2021-12-08 22:32] LABS: ALANINE AMINOTRANSFERASE < 6 U/L (12-78); ALBUMIN 3.7 g/dL (3.4-5.0); ALKALINE PHOSPHATASE 61 U/L (46-116); ASPARTATE AMINOTRANSFERASE 14 U/L (15-37); BILIRUBIN,DIRECT 0.1 mg/dL (0.0-0.2); BILIRUBIN,TOTAL 1.2 mg/dL (0.2-1.0); LIPASE 460 U/L (73-393); TOTAL PROTEIN, SERUM 7.2 g/dL (6.4-8.2)
--- NOTE | 2021-12-08 22:41 | NUR ---
PT TAKEN FOR CT SCAN
[2021-12-08] MEDS ORDERED: ACETAMINOPHEN ES 500 MG TABLET ONE ×2 (22:42→22:46)
[2021-12-08] MEDS ORDERED: diphenhydrAMINE HCL 50 MG/ML VIAL ONE (22:42)
[2021-12-08] MEDS: diphenhydrAMINE HCL 50 MG/ML VIAL IV ONE (23:03)
[2021-12-08] MEDS: IV NS 0.9% 1,000 ML IV ONE (23:04)
[2021-12-08] MEDS: ACETAMINOPHEN 325 MG TABLET PO ONE (23:04)
[2021-12-09] MEDS ORDERED: ONDANSETRON HCL/PF 4 MG/2 ML VIAL ONE ×2 (00:04→01:39)
[2021-12-09] MEDS ORDERED: HYDROMORPHONE 1 MG/1 ML DISP.SYRIN ONE ×2 (00:04→01:35)
[2021-12-09] MEDS: ONDANSETRON HCL/PF 4 MG/2 ML VIAL IV ONE ×2 (00:09→01:42)
[2021-12-09] MEDS: HYDROMORPHONE 1 MG/1 ML DISP.SYRIN IV ONE ×2 (00:09→01:38)
[2021-12-09] MEDS ORDERED: HYDR-3976 GT (01:26)
--- NOTE | 2021-12-09 02:03 | NUR ---
Patient discharged to home in stable condition. Written and verbal after care instructions given. Patient verbalizes understanding of instruction.
[2021-12-09 02:04] VITALS: BP 131/60
== END 2021-12-09 02:16 | disposition home or self-care (01) ==
LOC: ER 20:47
DX: K80.20 Calculus of gallbladder without cholecystitis without obstruction (principal); K86.1 Other chronic pancreatitis; R10.11 Right upper quadrant pain; R10.12 Left upper quadrant pain; R51.9 Headache, unspecified; I10 Essential (primary) hypertension; E78.5 Hyperlipidemia, unspecified; F17.200 Nicotine dependence, unspecified, uncomplicated; Z87.19 Personal history of other diseases of the digestive system; Z79.899 Other long term (current) drug therapy
CPT/HCPCS: 36415; 70450; 76705; 80048; 80076; 83690; 85025; 96361; 96374; 96375; 96376; 99284; J1170 ×2; J1200; J2405 ×2; J7030; G0168

== ENCOUNTER 2021-12-14 05:14 | Emergency (ER) | payer OTHER ==
[~2021-12-14] VITALS: Ht 165.1 cm; Wt 77.1 kg
[~2021-12-14 05:14] MED LIST changes: +HYDR-3976 GT
--- NOTE | 2021-12-14 05:54 | NUR ---
BIBSELF C/O ANDRE FLANK PAIN X 1 DAY TOOK TRAMADOL X 3 HRS AGO. PATIENT IS A/O X 4, RR EVEN AND UNLABORED, NO SOB NOTED. PATIENT CONNECTED TO CARDIAC AND POX MONITOR.
--- NOTE | 2021-12-14 05:55 | NUR ---
urine sample collected and sent to lab
[2021-12-14] MEDS ORDERED: HYDROMORPHONE 1 MG/1 ML DISP.SYRIN ONE (06:13)
--- NOTE | 2021-12-14 06:16 | NUR ---
IV LINE ESTABLISHED, LAC 20G. BLOOD COLLECTED AND SENT TO LAB
[2021-12-14] MEDS: HYDROMORPHONE 1 MG/1 ML DISP.SYRIN IV ONE (06:17)
[2021-12-14] MEDS: IV NS 0.9% 1,000 ML BAG IV ONE (06:18)
[2021-12-14 06:29] LABS: BILIRUBIN,URINE NEGATIVE (NEGATIVE); LEUKOCYTE ESTERASE ,URINE NEGATIVE (NEGATIVE); NITRITE, URINE NEGATIVE (NEGATIVE); PROTEIN,URINE NEGATIVE (NEGATIVE); UGLUCOSE NEGATIVE (NEGATIVE); UROBILINOGEN,URINE 0.2 EU/dL (0.2)
[2021-12-14 06:36] LABS: BASOPHILS % (AUTO) 0.8 % (0.0-2.0); HEMATOCRIT 39 % (39-51); LYMPHOCYTES # (AUTO) 1.9 K/uL (0.8-4.8); LYMPHOCYTES % (AUTO) 49.8 % (20.0-44.0); MEAN CORPUSCULAR HGB CONC 36 g/dl (31.0-36.0); MEAN CORPUSCULAR VOLUME 95 fL (80-96); MONOCYTES # (AUTO) 0.3 K/uL (0.1-1.30); NEUTROPHILS # (AUTO) 1.5 K/uL (1.8-8.9); NEUTROPHILS % (AUTO) 39.4 % (43.0-81.0); PLATELET COUNT (AUTO) 226 K/uL (150-450); RED BLOOD CELL COUNT(AUTO) 4.09 MIL/uL (4.5-6.0); WHITE BLOOD COUNT (AUTO) 3.8 K/uL (4.3-11.0)
[2021-12-14 06:48] LABS: ALBUMIN 3.6 g/dL (3.4-5.0); BILIRUBIN,DIRECT 0.1 mg/dL (0.0-0.2); BILIRUBIN,TOTAL 0.8 mg/dL (0.2-1.0); CALCIUM, SERUM 8.9 mg/dL (8.5-10.1); CREATININE 0.8 mg/dL (0.6-1.3); TOTAL PROTEIN, SERUM 7.2 g/dL (6.4-8.2)
[2021-12-14 07:08] LABS: COLOR,URINE YELLOW (YELLOW)
[2021-12-14 07:09] LABS: BACTERIA,URINE None seen /HPF (None Seen); RBC,URINE 0-2 /HPF (0-2); SQUAMOUS EPITHELIAL CELL,UR Rare /HPF (None Seen); WBC,URINE 0-2 /HPF (0-3)
[2021-12-14] MEDS ORDERED: PANT40TA2 PO (07:24)
[2021-12-14] MEDS ORDERED: ONDA4TAB5 PO (07:24)
[2021-12-14 07:33] VITALS: BP 151/88
--- NOTE | 2021-12-14 07:33 | NUR ---
IV removed. Catheter intact and site benign. Pressure and 4x4 applied to site. No bleeding noted.
--- NOTE | 2021-12-14 07:33 | NUR ---
Patient discharged to home in stable condition. Written and verbal after care instructions given. Patient verbalizes understanding of instruction.
== END 2021-12-14 07:34 | disposition home or self-care (01) ==
LOC: ER 05:16
DX: K85.10 Biliary acute pancreatitis without necrosis or infection (principal); R10.9 Unspecified abdominal pain; I10 Essential (primary) hypertension; E78.5 Hyperlipidemia, unspecified; F17.200 Nicotine dependence, unspecified, uncomplicated; Z87.19 Personal history of other diseases of the digestive system; Z79.899 Other long term (current) drug therapy
CPT/HCPCS: 36415; 80048; 80076; 81001; 83690; 85025; 93005; 96361; 96374; 99284; J1170; J7030

== ENCOUNTER 2021-12-14 13:43 | Emergency (ER) | payer OTHER ==
[~2021-12-14] VITALS: Ht 165.1 cm; Wt 99.8 kg
[~2021-12-14 13:43] MED LIST changes: +ONDA4TAB5 PO; +PANT40TA2 PO
--- NOTE | 2021-12-14 13:51 | NUR ---
called 911 for headache and high blood pressure.
[2021-12-14] MEDS ORDERED: ONDANSETRON HCL/PF 4 MG/2 ML VIAL ONE (15:29)
[2021-12-14] MEDS ORDERED: MORPHINE SULFATE INJ 4 MG/ML DISP.SYRIN ONE (15:29)
[2021-12-14] MEDS ORDERED: IV NS 0.9% 1,000 ML IV ONE (15:30)
[2021-12-14] MEDS ORDERED: MORPHINE SULFATE INJ 2 MG/ML DISP.SYRIN IV ONE (15:30)
[2021-12-14] MEDS ORDERED: ONDANSETRON HCL/PF - ER 4 MG/2 ML VIAL IV ONE (15:30)
[2021-12-14] MEDS ORDERED: HYDROMORPHONE 1 MG/1 ML DISP.SYRIN ONE (15:49)
[2021-12-14] MEDS ORDERED: HYDROMORPHONE 1 MG/1 ML DISP.SYRIN IV ONE (16:00)
[2021-12-14 17:54] VITALS: BP 138/75
== END 2021-12-14 17:55 | disposition home or self-care (01) ==
LOC: ER 13:45
DX: R10.10 Upper abdominal pain, unspecified (principal); R03.0 Elevated blood-pressure reading, without diagnosis of hypertension; I10 Essential (primary) hypertension; E78.5 Hyperlipidemia, unspecified; F17.200 Nicotine dependence, unspecified, uncomplicated; Z87.19 Personal history of other diseases of the digestive system; Z79.899 Other long term (current) drug therapy
CPT/HCPCS: 74176; 96361; 96374; 96375; 99284; J1170; J2405; J7030; J2270

== ENCOUNTER → 2022-02-27 | Emergency (ER) | payer OTHER ==
[~2022-02-27] VITALS: Ht 165.1 cm; Wt 74.8 kg
[~2022-02-27] MED LIST changes: +IBUP-1957 PO; +KETOROLAC TROMETHAMINE INJ 30 MG/ML VIAL IM ONE; +KETOROLAC TROMETHAMINE INJ 30 MG/ML VIAL ONE; +TRAM-351 PO; +TRAMADOL HCL 50 MG TABLET ONE; +TRAMADOL HCL 50 MG TABLET PO ONE
[2022-02-27 06:39] VITALS: BP 135/75
--- NOTE | 2022-02-27 06:46 | NUR ---
BIBS TO ER BED . AAOX4. NOT IN DISTRESS. AMBULATORY WITH A LIPM. CAME IN FOR R FOOT PAIN ON THE DORSAL ASPECT OF THE FOOT. PT REPORTS NO TRAUMA TO FOOT. HE HAD GOUT IN THE PAST AND FRACTURE BUT FEELS DIFFERENT. PAIN IS 10/10 SHARP AGGREVATED BY WALKING.
--- NOTE | 2022-02-27 08:00 | NUR ---
KETOROLAC 30 MG/ML IM ADMINISTERED ORDERED FOR RIGHT FOOT PAIN. ICE PACK ALSO PLACED ON RIGHT FOOT.
--- NOTE | 2022-02-27 08:24 | NUR ---
TRAMADOL 100 MG PO ADMINSITERED ORDERED FOR RIGHT FOOT PAIN
== END | disposition home or self-care (01) ==
LOC: ER 06:29
DX: M79.671 Pain in right foot (principal); I10 Essential (primary) hypertension; I25.10 Atherosclerotic heart disease of native coronary artery without angina pectoris; E78.5 Hyperlipidemia, unspecified
CPT/HCPCS: 99283; 96372; 73630; J1885

== ENCOUNTER 2022-03-09 21:51 | Inpatient (IN) | payer OTHER ==
[~2022-03-09] VITALS: Ht 165.1 cm; Wt 75.7 kg
[~2022-03-09 21:51] MED LIST changes: -KETOROLAC TROMETHAMINE INJ 30 MG/ML VIAL IM ONE; -KETOROLAC TROMETHAMINE INJ 30 MG/ML VIAL ONE; -TRAMADOL HCL 50 MG TABLET ONE; -TRAMADOL HCL 50 MG TABLET PO ONE
[2022-03-09] MEDS ORDERED: ASPIRIN 325 MG TABLET ONE (22:28)
--- NOTE | 2022-03-09 22:29 | NUR ---
PATIENT BIBSELF C/O ON ANF OFF SHARP LEFT SIDED CP X 2 DAYS. ALSO W/ C/O R FLANK PAIN. -HEMATURIA OR DYSURIA IS A/O X 4, RR EVEN AND UNLABORED NO SOB NOTED. PATIENT CONNECTED TO CARDIAC AND POX MONITOR.
[2022-03-09] MEDS ORDERED: ASPIRIN 325 MG TABLET PO ONE (22:30)
--- NOTE | 2022-03-09 22:36 | NUR ---
BLOOD WORK COLLECTED SENT TO LAB
[2022-03-09 22:53] LABS: CALCIUM, SERUM 9.1 mg/dL (8.5-10.1); CARBON DIOXIDE 24 mmol/L (21-32); CHLORIDE 103 mmol/L (98-107); CREATININE 1.2 mg/dL (0.6-1.3); GLUCOSE 154 mg/dL (74-106); POTASSIUM 3.1 mmol/L (3.5-5.1); SODIUM SERUM 141 mmol/L (136-145); UREA NITROGEN, BLOOD 15 mg/dL (7-18)
[2022-03-09 22:55] LABS: BASOPHILS % (AUTO) 0.4 % (0.0-2.0); EOSINOPHILS % (AUTO) 0.6 % (0.0-6.0); HEMATOCRIT 43 % (39-51); LYMPHOCYTES # (AUTO) 2.9 K/uL (0.8-4.8); LYMPHOCYTES % (AUTO) 39.4 % (20.0-44.0); MEAN CORPUSCULAR HGB CONC 35 g/dl (31.0-36.0); MEAN CORPUSCULAR VOLUME 91 fL (80-96); MONOCYTES # (AUTO) 0.4 K/uL (0.1-1.30); NEUTROPHILS % (AUTO) 53.6 % (43.0-81.0); PLATELET COUNT (AUTO) 248 K/uL (150-450); RED BLOOD CELL COUNT(AUTO) 4.78 MIL/uL (4.5-6.0); WHITE BLOOD COUNT (AUTO) 7.4 K/uL (4.3-11.0)
--- NOTE | 2022-03-10 | NUR ---
URINE SENT TO LAB
[2022-03-10 00:29] LABS: BILIRUBIN,URINE NEGATIVE (NEGATIVE); COLOR,URINE YELLOW (YELLOW); LEUKOCYTE ESTERASE ,URINE NEGATIVE (NEGATIVE); NITRITE, URINE NEGATIVE (NEGATIVE); PROTEIN,URINE NEGATIVE (NEGATIVE); UGLUCOSE NEGATIVE (NEGATIVE); UROBILINOGEN,URINE 0.2 EU/dL (0.2)
--- NOTE | 2022-03-10 00:56 | NUR ---
COVID SWAB COLLECTED AND SENT TO LAB
[2022-03-10] MEDS ORDERED: MAG HYDROX/AL HYDROX/SIMETH 30 ML UDC PO PRN (02:00)
[2022-03-10] MEDS ORDERED: ACETAMINOPHEN 325 MG TABLET PO PRN (02:00)
[2022-03-10] MEDS ORDERED: ONDANSETRON HCL/PF 4 MG/2 ML VIAL IVP PRN (02:00)
[2022-03-10] MEDS ORDERED: MORPHINE SULFATE INJ 2 MG/ML DISP.SYRIN IV PRN (02:00)
[2022-03-10] MEDS ORDERED: DOCUSATE SODIUM 100 MG CAPSULE PO PRN (02:00)
[2022-03-10] MEDS ORDERED: NITROGLYCERIN 0.4 MG/TAB BOTTLE SL PRN (02:00)
[2022-03-10] MEDS ORDERED: HYDROCODONE/APAP 7.5/325MG 1 EACH TABLET GT PRN (02:00)
--- NOTE | 2022-03-10 03:01 | NUR ---
Patient does not wish to proceed with medical care recommended by Dr. Mike. Patient given information related to possible complications, up to and including , which could occur as a result of leaving the hospital at this time. Patient verbalizes understanding of risks involved due to leaving against medical advice. Patient has signed AMA form.
[2022-03-10 03:02] VITALS: BP 135/72
[2022-03-10] MEDS ORDERED: PANTOPRAZOLE 40 MG TABLET.DR PO SCH ×2 (07:30→09:00)
[2022-03-10] MEDS ORDERED: CLOPIDOGREL BISULFATE 75 MG TABLET PO SCH (09:00)
[2022-03-10] MEDS ORDERED: BENAZEPRIL HCL 20 MG TABLET PO SCH (09:00)
[2022-03-10] MEDS ORDERED: Medication Not On Formulary EA (Omega-3 Fatty Acids/Fish Oil (Fish Oil 1,000 Mg Softgel) PO SCH (09:00)
[2022-03-10] MEDS ORDERED: GEMFIBROZIL 600 MG TABLET PO SCH (09:00)
[2022-03-10] MEDS ORDERED: ASPIRIN 81 MG TAB.CHEW PO SCH (09:00)
[2022-03-10] MEDS ORDERED: METOPROLOL SUCCINATE 50 MG TAB.SR.24H PO SCH (09:00)
[2022-03-10] MEDS ORDERED: ENOXAPARIN SODIUM 60 MG/0.6 ML DISP.SYRIN SQ SCH (09:00)
[2022-03-10] MEDS ORDERED: Medication Not On Formulary EA (Omega-3 Acid Ethyl Esters (Lovaza) 1 GM) PO SCH (09:00)
[2022-03-10] MEDS ORDERED: ONDANSETRON 4 MG TAB.RAPDIS PO SCH (12:00)
== END 2022-03-10 03:01 | disposition left against medical advice (07) | DRG 198 ==
LOC: ER 21:52 → TELE 03-10 02:24
PROVIDERS: ADMIT Registered Nurse; ATTEND Registered Nurse
DX: R07.9 Chest pain, unspecified (principal); I25.10 Atherosclerotic heart disease of native coronary artery without angina pectoris; E66.9 Obesity, unspecified; Z20.822 Contact with and (suspected) exposure to COVID-19; E78.5 Hyperlipidemia, unspecified; E87.6 Hypokalemia; F10.10 Alcohol abuse, uncomplicated; F17.210 Nicotine dependence, cigarettes, uncomplicated; M10.9 Gout, unspecified; Z95.5 Presence of coronary angioplasty implant and graft; I10 Essential (primary) hypertension; Z68.27 Body mass index [BMI] 27.0-27.9, adult; R73.03 Prediabetes
CPT/HCPCS: 36415; 71045-TC; 80048-TC; 84484-TC; 85025-TC; C9803; G0378; Q0162

== ENCOUNTER 2022-06-13 20:44 | Inpatient (IN) | payer OTHER ==
[~2022-06-13] VITALS: Ht 165.1 cm; Wt 79.4 kg
--- NOTE | 2022-06-13 21:10 | NUR ---
BIBS. L SIDE CP NON RADIAITING SHARP X 1/2 HR AGO. DIFFICULTY BREATHING AND FEELING WEAK. NOT PRESENT UPON TRIAGE. PLACED ON BED, ATTACHED TO MONITOR- NORMAL SINUS RHYTHM OK- 75, SATURATING AT 97%RA, PAINFREE AT MOMENT.
--- NOTE | 2022-06-13 21:30 | NUR ---
RING CONDUCTOR AT BEDSIDE
[2022-06-13 21:35] LABS: BASOPHILS % (AUTO) 0.5 % (0.0-2.0); EOSINOPHILS % (AUTO) 1.7 % (0.0-6.0); HEMATOCRIT 44 % (39-51); HEMOGLOBIN 15.4 g/dL (13.5-17.5); LYMPHOCYTES # (AUTO) 3.6 K/uL (0.8-4.8); LYMPHOCYTES % (AUTO) 51.1 % (20.0-44.0); MEAN CORPUSCULAR HGB CONC 35 g/dl (31.0-36.0); MEAN CORPUSCULAR VOLUME 91 fL (80-96); MONOCYTES # (AUTO) 0.6 K/uL (0.1-1.30); NEUTROPHILS # (AUTO) 2.7 K/uL (1.8-8.9); NEUTROPHILS % (AUTO) 38.7 % (43.0-81.0); PLATELET COUNT (AUTO) 277 K/uL (150-450); RED BLOOD CELL COUNT(AUTO) 4.82 MIL/uL (4.5-6.0); WHITE BLOOD COUNT (AUTO) 7.1 K/uL (4.3-11.0)
--- NOTE | 2022-06-13 21:51 | NUR ---
SWAB FOR COVID19 SENT TO LAB
[2022-06-13 21:54] LABS: ALBUMIN 3.9 g/dL (3.4-5.0); ALKALINE PHOSPHATASE 74 U/L (46-116); BILIRUBIN,DIRECT 0.1 mg/dL (0.0-0.2); BILIRUBIN,TOTAL 0.6 mg/dL (0.2-1.0); CALCIUM, SERUM 9.2 mg/dL (8.5-10.1); CARBON DIOXIDE 28 mmol/L (21-32); CHLORIDE 100 mmol/L (98-107); CREATININE 0.9 mg/dL (0.6-1.3); GLUCOSE 169 mg/dL (74-106); POTASSIUM 3.5 mmol/L (3.5-5.1); SODIUM SERUM 136 mmol/L (136-145); TOTAL PROTEIN, SERUM 7.6 g/dL (6.4-8.2); UREA NITROGEN, BLOOD 16 mg/dL (7-18)
[2022-06-13] MEDS ORDERED: ASPIRIN 81 MG TAB.CHEW PO ONE (22:00)
[2022-06-13] MEDS ORDERED: ASPIRIN 81 MG TAB.CHEW ONE (22:04)
[2022-06-13 22:34] LABS: ALANINE AMINOTRANSFERASE 42 U/L (12-78); ASPARTATE AMINOTRANSFERASE 27 U/L (15-37)
--- NOTE | 2022-06-13 23:00 | NUR ---
RECEIVED PT IN ER BED 7. PT IS ALERT AND ORIENTED. RR EVEN AND NON LABORED. CONNECTED TO POX AND HEART MONITOR. VITAL SIGNS WITHIN LIMITS. DENIES ANY DISCOMFORT AT THIS TIME. CALL LIGHT WITHIN REACH. WILL CONT TO MONITOR
[2022-06-14] MEDS ORDERED: HYDROCODONE/APAP 7.5/325MG 1 EACH TABLET GT PRN
[2022-06-14] MEDS ORDERED: ENOXAPARIN SODIUM 40 MG/0.4 ML DISP.SYRIN SQ SCH (00:30)
[2022-06-14] MEDS ORDERED: MAG HYDROX/AL HYDROX/SIMETH 30 ML UDC PO PRN (00:30)
[2022-06-14] MEDS ORDERED: HYDROCODONE/APAP 5/325MG TABLET PO PRN (00:30)
[2022-06-14] MEDS ORDERED: ZOLPIDEM TARTRATE 5 MG TABLET PO PRN (00:30)
[2022-06-14] MEDS ORDERED: Z GUARD REMEDY 4 OZ OINT TP PRN (00:30)
[2022-06-14] MEDS ORDERED: NITROGLYCERIN 0.4 MG/TAB BOTTLE SL ONE (00:30)
[2022-06-14] MEDS ORDERED: MAGNESIUM HYDROXIDE 30 ML UDC PO PRN (00:30)
[2022-06-14] MEDS ORDERED: MORPHINE SULFATE INJ 2 MG/ML DISP.SYRIN IV PRN (00:30)
[2022-06-14] MEDS ORDERED: ONDANSETRON HCL/PF 4 MG/2 ML VIAL IVP PRN (00:30)
[2022-06-14] MEDS ORDERED: ACETAMINOPHEN 325 MG TABLET PO PRN (00:30)
--- NOTE | 2022-06-14 02:46 | NUR ---
PT IS RESTING IN BED WITH EYES CLOSED, RR EVEN AND NONLABORED. CONNECTED TO POX AND HEART MONITOR. VITAL SIGNS WITHIN NORMAL LIMITS. WILL CONTINUE TO MONITOR.
[2022-06-14] MEDS ORDERED: NITROGLYCERIN 0.4 MG/TAB BOTTLE ONE (03:23)
[2022-06-14] MEDS ORDERED: ENOXAPARIN SODIUM 40 MG/0.4 ML DISP.SYRIN SQ ONE (03:23)
--- NOTE | 2022-06-14 04:15 | NUR ---
IV removed. Catheter intact and site benign. Pressure and 4x4 applied to site. No bleeding noted.Patient does not wish to proceed with medical care recommended by . Patient given information related to possible complications, up to and including , which could occur as a result of leaving the hospital at this time. Patient verbalizes understanding of risks involved due to leaving against medical advice. Patient has signed AMA form.
[2022-06-14 04:26] VITALS: BP 128/74
[2022-06-14] MEDS ORDERED: ASPIRIN EC 81 MG TABLET.DR PO SCH (09:00)
[2022-06-14] MEDS ORDERED: METOPROLOL SUCCINATE 50 MG TAB.SR.24H PO SCH (09:00)
[2022-06-14] MEDS ORDERED: CLOPIDOGREL BISULFATE 75 MG TABLET PO SCH (09:00)
[2022-06-14] MEDS ORDERED: BENAZEPRIL HCL 20 MG TABLET PO SCH (09:00)
[2022-06-14] MEDS ORDERED: PANTOPRAZOLE 40 MG VIAL IV SCH (09:00)
[2022-06-14] MEDS ORDERED: GEMFIBROZIL 600 MG TABLET PO SCH (09:00)
[2022-06-15] MEDS ORDERED: BENAZEPRIL HCL 10 MG TABLET PO SCH (09:00)
== END 2022-06-14 04:15 | disposition left against medical advice (07) | DRG 198 ==
LOC: ER 20:46 → TRANSITION 06-14 00:46
PROVIDERS: ADMIT Nurse Practitioner Acute Care; ATTEND Nurse Practitioner Acute Care
DX: I24.9 Acute ischemic heart disease, unspecified (principal); K85.90 Acute pancreatitis without necrosis or infection, unspecified; D68.59 Other primary thrombophilia; I25.10 Atherosclerotic heart disease of native coronary artery without angina pectoris; K57.90 Diverticulosis of intestine, part unspecified, without perforation or abscess without bleeding; Z20.822 Contact with and (suspected) exposure to COVID-19; Z95.5 Presence of coronary angioplasty implant and graft; E78.5 Hyperlipidemia, unspecified; E11.9 Type 2 diabetes mellitus without complications; F17.200 Nicotine dependence, unspecified, uncomplicated; Z87.81 Personal history of (healed) traumatic fracture; I10 Essential (primary) hypertension; E78.00 Pure hypercholesterolemia, unspecified; E78.1 Pure hyperglyceridemia; Z82.49 Family history of ischemic heart disease and other diseases of the circulatory system; Z79.02 Long term (current) use of antithrombotics/antiplatelets; Z79.82 Long term (current) use of aspirin; Z79.899 Other long term (current) drug therapy; M10.9 Gout, unspecified
CPT/HCPCS: 36415; 71045-TC; 80048-TC; 80076-TC; 83690-TC; 83880; 84484-TC; 85025-TC; C9113; C9803; G0378; J1650; J2270; J2405

== ENCOUNTER 2022-07-04 21:52 | Emergency (ER) | payer OTHER ==
[~2022-07-04] VITALS: Ht 165.1 cm; Wt 79.4 kg
--- NOTE | 2022-07-04 22:20 | NUR ---
TO ER BED 9. BIBS C/O EPIGASTRIC PAIN & ADAMS X 1 HOUR. PT IS ALERT AND ORIENTED. RR EVEN AND NON LABORED. CONNECTED TO POX AND HEART MONITOR. VSS. AWAITING MD FAGAN
[2022-07-04] MEDS ORDERED: MORPHINE SULFATE INJ 2 MG/ML DISP.SYRIN IV ONE (22:30)
[2022-07-04] MEDS ORDERED: ONDANSETRON HCL/PF 4 MG/2 ML VIAL IVP ONE (22:30)
[2022-07-04] MEDS ORDERED: IV NS 0.9% 1,000 ML BAG IV ONE (22:30)
[2022-07-04] MEDS ORDERED: ONDANSETRON HCL/PF 4 MG/2 ML VIAL ONE (22:39)
[2022-07-04] MEDS ORDERED: MORPHINE SULFATE INJ 4 MG/ML DISP.SYRIN ONE (22:40)
[2022-07-04 22:54] LABS: BASOPHILS % (AUTO) 0.8 % (0.0-2.0); EOSINOPHILS % (AUTO) 0.9 % (0.0-6.0); HEMATOCRIT 45 % (39-51); HEMOGLOBIN 15.6 g/dL (13.5-17.5); LYMPHOCYTES # (AUTO) 2.7 K/uL (0.8-4.8); LYMPHOCYTES % (AUTO) 51.9 % (20.0-44.0); MEAN CORPUSCULAR HGB CONC 35 g/dl (31.0-36.0); MEAN CORPUSCULAR VOLUME 93 fL (80-96); MONOCYTES # (AUTO) 0.4 K/uL (0.1-1.30); MONOCYTES % (AUTO) 7.1 % (2.0-12.0); NEUTROPHILS % (AUTO) 39.3 % (43.0-81.0); PLATELET COUNT (AUTO) 246 K/uL (150-450); RED BLOOD CELL COUNT(AUTO) 4.81 MIL/uL (4.5-6.0); WHITE BLOOD COUNT (AUTO) 5.2 K/uL (4.3-11.0)
[2022-07-04 23:29] LABS: CALCIUM, SERUM 8.9 mg/dL (8.5-10.1); CARBON DIOXIDE 25 mmol/L (21-32); CHLORIDE 99 mmol/L (98-107); CREATININE 0.9 mg/dL (0.6-1.3); GLUCOSE 167 mg/dL (74-106); POTASSIUM 3.5 mmol/L (3.5-5.1); SODIUM SERUM 137 mmol/L (136-145); UREA NITROGEN, BLOOD 23 mg/dL (7-18)
[2022-07-04 23:36] LABS: ALANINE AMINOTRANSFERASE 17 U/L (12-78); ALKALINE PHOSPHATASE 66 U/L (46-116); ASPARTATE AMINOTRANSFERASE 24 U/L (15-37); BILIRUBIN,DIRECT 0.1 mg/dL (0.0-0.2); BILIRUBIN,TOTAL 0.8 mg/dL (0.2-1.0); LIPASE 418 U/L (73-393); TOTAL PROTEIN, SERUM 7.8 g/dL (6.4-8.2)
[2022-07-05] MEDS ORDERED: KETO10TA2 PO (01:16)
[2022-07-05] MEDS ORDERED: ONDA4TAB11 PO (01:16)
--- NOTE | 2022-07-05 02:08 | NUR ---
IV removed. Catheter intact and site benign. Pressure and 4x4 applied to site. No bleeding noted.
--- NOTE | 2022-07-05 02:08 | NUR ---
Patient discharged to home in stable condition. Written and verbal after care instructions given. Patient verbalizes understanding of instruction.
[2022-07-05 02:56] VITALS: BP 131/81
== END 2022-07-05 02:56 | disposition home or self-care (01) ==
LOC: ER 21:55
DX: K80.20 Calculus of gallbladder without cholecystitis without obstruction (principal); I10 Essential (primary) hypertension; R73.03 Prediabetes; E78.5 Hyperlipidemia, unspecified; F17.200 Nicotine dependence, unspecified, uncomplicated; I25.10 Atherosclerotic heart disease of native coronary artery without angina pectoris; Z79.82 Long term (current) use of aspirin; Z79.899 Other long term (current) drug therapy; Z95.818 Presence of other cardiac implants and grafts
CPT/HCPCS: 99285; 74176; 96374; 76705; 96361; 96375; 93005; 85025; 80048; 83690; 80076; 36415; 84484; J2270; J2405

== ENCOUNTER 2022-07-20 11:26 | Emergency (ER) | payer OTHER ==
[~2022-07-20] VITALS: Ht 162.6 cm; Wt 81.6 kg
[~2022-07-20 11:26] MED LIST changes: +KETO10TA2 PO; +ONDA4TAB11 PO
--- NOTE | 2022-07-20 11:45 | NUR ---
DR GABRIEL AT BEDSIDE FOR EVAL
--- NOTE | 2022-07-20 11:56 | NUR ---
XRAY AT BEDSIDE.
--- NOTE | 2022-07-20 11:56 | NUR ---
ESTABLISHED IV 18G LEFT AC. BLOOD DRAWN AND SENT TO LAB.
--- NOTE | 2022-07-20 11:57 | NUR ---
RECORDINGS LIBRARIAN AT BEDSIDE FOR XRAY
[2022-07-20] MEDS ORDERED: ACETAMINOPHEN ES 500 MG TABLET PO ONE (12:00)
[2022-07-20 12:02] LABS: BASOPHILS % (AUTO) 0.7 % (0.0-2.0); HEMOGLOBIN 16.5 g/dL (13.5-17.5); LYMPHOCYTES # (AUTO) 2.6 K/uL (0.8-4.8); MEAN CORPUSCULAR HGB CONC 36 g/dl (31.0-36.0)
[2022-07-20] MEDS ORDERED: ACETAMINOPHEN ES 500 MG TABLET ONE (12:04)
[2022-07-20 12:29] LABS: EOSINOPHILS % (AUTO) 0.2 % (0.0-6.0); HEMATOCRIT 46 % (39-51); LYMPHOCYTES % (AUTO) 38.2 % (20.0-44.0); MEAN CORPUSCULAR VOLUME 95 fL (80-96); MONOCYTES # (AUTO) 0.6 K/uL (0.1-1.30); MONOCYTES % (AUTO) 8.5 % (2.0-12.0); NEUTROPHILS # (AUTO) 3.6 K/uL (1.8-8.9); NEUTROPHILS % (AUTO) 52.4 % (43.0-81.0); PLATELET COUNT (AUTO) 257 K/uL (150-450); RED BLOOD CELL COUNT(AUTO) 4.81 MIL/uL (4.5-6.0); WHITE BLOOD COUNT (AUTO) 6.9 K/uL (4.3-11.0)
[2022-07-20 12:30] LABS: ALBUMIN 3.9 g/dL (3.4-5.0); ALKALINE PHOSPHATASE 69 U/L (46-116); BILIRUBIN,TOTAL 1.1 mg/dL (0.2-1.0); CALCIUM, SERUM 8.2 mg/dL (8.5-10.1); CARBON DIOXIDE 25 mmol/L (21-32); CHLORIDE 94 mmol/L (98-107); CREATININE 0.9 mg/dL (0.6-1.3); GLUCOSE 175 mg/dL (74-106); POTASSIUM 3.5 mmol/L (3.5-5.1); SODIUM SERUM 131 mmol/L (136-145); TOTAL PROTEIN, SERUM 7.6 g/dL (6.4-8.2); UREA NITROGEN, BLOOD 15 mg/dL (7-18)
[2022-07-20 13:34] LABS: ALANINE AMINOTRANSFERASE 23 U/L (12-78); ASPARTATE AMINOTRANSFERASE 40 U/L (15-37)
--- NOTE | 2022-07-20 13:44 | NUR ---
IV removed. Catheter intact and site benign. Pressure and 4x4 applied to site. No bleeding noted.
[2022-07-20 13:45] VITALS: BP 156/90
--- NOTE | 2022-07-20 13:45 | NUR ---
Patient discharged to home in stable condition. Written and verbal after care instructions given. Patient verbalizes understanding of instruction.
[2022-07-30] MEDS ORDERED: ALLO300T2 PO (15:15)
[2022-07-30] MEDS ORDERED: IBUP-1955 PO (15:15)
[2022-07-30] MEDS ORDERED: DOXY100C2 PO (15:15)
== END 2022-07-20 13:45 | disposition home or self-care (01) ==
LOC: ER 11:35
DX: R06.02 Shortness of breath (principal); I10 Essential (primary) hypertension; Z95.1 Presence of aortocoronary bypass graft; I25.10 Atherosclerotic heart disease of native coronary artery without angina pectoris; Z98.890 Other specified postprocedural states; E78.00 Pure hypercholesterolemia, unspecified; E78.1 Pure hyperglyceridemia; F17.200 Nicotine dependence, unspecified, uncomplicated; Z79.899 Other long term (current) drug therapy; Z79.82 Long term (current) use of aspirin
CPT/HCPCS: 36415; 71045-TC; 80048-TC; 80076-TC; 83880; 84484-TC; 85025-TC

== ENCOUNTER 2022-07-24 17:00 | Emergency (ER) | payer OTHER ==
[~2022-07-24] VITALS: Ht 165.1 cm; Wt 77.1 kg
--- NOTE | 2022-07-24 17:00 | NUR ---
RECEIVED PT 57 YRS MALE CAME FROM HOME C/O PAIN ON LT KNEE FOR 3 DAYS
--- NOTE | 2022-07-24 17:15 | NUR ---
REDNESS ON LT KNEE AND SL WARM TO TOUCH
--- NOTE | 2022-07-24 17:46 | NUR ---
HERE AT BED SIDE SEE AND EXAMINE PT SPOOK WITH PT ABOUT PLAN OF CARE
[2022-07-24] MEDS ORDERED: KETOROLAC TROMETHAMINE INJ 30 MG/ML VIAL ONE (17:55)
[2022-07-24] MEDS ORDERED: KETOROLAC TROMETHAMINE INJ 60 MG/2 ML VIAL IM ONE (18:00)
--- NOTE | 2022-07-24 18:00 | NUR ---
X RAY DONE AT BED SIDE
[2022-07-24] MEDS ORDERED: oxyCODONE/APAP (5/325 MG) 1 UDTAB TABLET PO ONE (18:30)
[2022-07-24] MEDS ORDERED: oxyCODONE/APAP (5/325 MG) 1 UDTAB TABLET ONE (18:37)
--- NOTE | 2022-07-24 18:45 | NUR ---
PERCOCET 5/325MG PO GIVEN
--- NOTE | 2022-07-24 19:05 | NUR ---
HAND OFF STEPHANIE ODONNELL
--- NOTE | 2022-07-24 19:11 | NUR ---
REPORT RECEIVED FROM BLAS MUELLER. PATIENT IS AAOX4. ABLE TO MAKE NEEDS KNOWN. PAIN SCALE OF 4/10. PATIENT IS ANXIOUS ABOUT HIS KNEE CONDITION. PLACED COMFORTABLY IN BED. VITALS CHECKED.
--- NOTE | 2022-07-24 19:38 | NUR ---
Patient discharged to home in stable condition. Written and verbal after care instructions given. Patient verbalizes understanding of instruction.
[2022-07-24 19:39] VITALS: BP 133/78
[2022-07-30] MEDS ORDERED: ALLO300T2 PO (15:15)
[2022-07-30] MEDS ORDERED: DOXY100C2 PO (15:15)
[2022-07-30] MEDS ORDERED: IBUP-1955 PO (15:15)
== END 2022-07-24 19:40 | disposition home or self-care (01) ==
LOC: ER 17:25
DX: M25.562 Pain in left knee (principal); I10 Essential (primary) hypertension; E78.5 Hyperlipidemia, unspecified; F17.200 Nicotine dependence, unspecified, uncomplicated; Z87.19 Personal history of other diseases of the digestive system; Z87.39 Personal history of other diseases of the musculoskeletal system and connective tissue; Z79.899 Other long term (current) drug therapy
CPT/HCPCS: 99283; 96372; 73564; J1885

== ENCOUNTER 2022-07-25 21:05 | Inpatient (IN) | payer OTHER ==
[~2022-07-25] VITALS: Ht 165.1 cm; Wt 82.1 kg
--- NOTE | 2022-07-25 21:20 | NUR ---
[id number]. L KNEE PAIN AND SWELLING X 2 DAYS. PATIENT IS IN PAIN SCALE OF 10/10. AAOX4. ABLE TO MAKE NEEDS KNOWN. PLACED COMFORTABLY IN BED. VITALS CHECKED.
[2022-07-25] MEDS ORDERED: IV NS 0.9% 1,000 ML BAG IV ONE (21:30)
[2022-07-25] MEDS ORDERED: VANCOMYCIN 1 GM in IV D5W 250 ML IV ONE (21:30)
[2022-07-25] MEDS ORDERED: MORPHINE SULFATE INJ 2 MG/ML DISP.SYRIN IV ONE ×2 (21:30→23:00)
[2022-07-25] MEDS ORDERED: VANCOMYCIN 1 GM VIAL ONE (21:36)
[2022-07-25] MEDS ORDERED: MORPHINE SULFATE INJ 2 MG/ML DISP.SYRIN ONE ×2 (21:37→22:54)
--- NOTE | 2022-07-25 21:47 | NUR ---
IV CANNULA G20 INSERTED ON LEFT AC. BLOOD DRAWN AND BLOOD CULTURE DONE. MEDS GIVEN. IV MEDICATIONS STARTED
[2022-07-25 21:54] LABS: BASOPHILS % (AUTO) 0.5 % (0.0-2.0); EOSINOPHILS % (AUTO) 0.7 % (0.0-6.0); HEMATOCRIT 42 % (39-51); HEMOGLOBIN 14.4 g/dL (13.5-17.5); LYMPHOCYTES # (AUTO) 2.2 K/uL (0.8-4.8); LYMPHOCYTES % (AUTO) 29.3 % (20.0-44.0); MEAN CORPUSCULAR HGB CONC 34 g/dl (31.0-36.0); MEAN CORPUSCULAR VOLUME 95 fL (80-96); MONOCYTES # (AUTO) 0.7 K/uL (0.1-1.30); MONOCYTES % (AUTO) 9.5 % (2.0-12.0); NEUTROPHILS # (AUTO) 4.4 K/uL (1.8-8.9); PLATELET COUNT (AUTO) 206 K/uL (150-450); RED BLOOD CELL COUNT(AUTO) 4.43 MIL/uL (4.5-6.0); WHITE BLOOD COUNT (AUTO) 7.4 K/uL (4.3-11.0)
[2022-07-25 22:13] LABS: ALBUMIN 3.9 g/dL (3.4-5.0); BILIRUBIN,DIRECT 0.1 mg/dL (0.0-0.2); BILIRUBIN,TOTAL 0.7 mg/dL (0.2-1.0); CALCIUM, SERUM 9.7 mg/dL (8.5-10.1); CREATININE 1.1 mg/dL (0.6-1.3); POTASSIUM 4.2 mmol/L (3.5-5.1); TOTAL PROTEIN, SERUM 7.8 g/dL (6.4-8.2)
--- NOTE | 2022-07-25 22:54 | NUR ---
[place] BED 315-1
--- NOTE | 2022-07-25 23:16 | NUR ---
REPORT GIVEN TO JAZMYNE ODONNELL FOR YENIFER
[2022-07-25 23:30] VITALS: BP 145/85
[2022-07-25] MEDS ORDERED: Z GUARD REMEDY 4 OZ OINT TP PRN (23:30)
[2022-07-25] MEDS ORDERED: ACETAMINOPHEN 325 MG TABLET PO PRN (23:30)
[2022-07-25] MEDS ORDERED: MAGNESIUM HYDROXIDE 30 ML UDC PO PRN (23:30)
[2022-07-25] MEDS ORDERED: MAG HYDROX/AL HYDROX/SIMETH 30 ML UDC PO PRN (23:30)
[2022-07-25] MEDS ORDERED: ONDANSETRON HCL/PF 4 MG/2 ML VIAL IVP PRN (23:30)
[2022-07-25 23:40] VITALS: BP 145/85
[2022-07-25] MEDS: HYDROMORPHONE INJ 2 MG/ML DISP.SYRIN IV PRN (23:53)
--- NOTE | 2022-07-25 23:53 | NUR ---
RN NOTE PATIENT COMPLAINED OF LEFT KNEE PAIN 10/. PRN DILAUDID INJ 2MG/ML 0.5 MG GIVEN IV ORDERED. KEPT COMFORTABLE IN BED. WILL CONTINUE TO MONITOR AND REASSESS PT.
--- NOTE | 2022-07-26 00:15 | NUR ---
MS LANDSCAPE CONTRACTOR NOTE ADMITTED THIS PATIENT FROM ER VIA [facility]. PATIENT IS AMBULATORY, AWAKE, ALERT AND ORIENTED X 4. ON ROOM AIR; TOLERATING WELL. AFEBRILE, NOT IN ANY FORM OF RESPIRATORY OR CARDIAC DISTRESS NOTED. ABLE TO MAKE NEEDS KNOWN. WITH IV ACCESS ON LEFT AC 20G; PATENT, INTACT AND SALINE LOCKED. BODY ASSESSMENT DONE; PICTURE TAKEN AND PLACED TO CHART. INVENTORY OF PERSONAL BELONGINGS DONE. ORIENTED TO STAFF, ROOM AND UNIT. SAFETY PRECAUTIONS IMPLEMENTED: CALL LIGHT AND TABLE WITHIN REACH, SIDE RAILS UP X 2, BED IN LOWEST LOCKED POSITION. WILL CONTINUE TO MONITOR.
[2022-07-26] MEDS: ENOXAPARIN SODIUM 40 MG/0.4 ML DISP.SYRIN SQ SCH ×2 (00:50→20:57)
[2022-07-26] MEDS ORDERED: CEFTRIAXONE 1 G VIAL ONE ×2 (01:36→01:37)
[2022-07-26] MEDS: CEFTRIAXONE 2 G in IV D5W 100 ML IV SCH ×2 (01:41→23:58)
[2022-07-26] MEDS: HYDROMORPHONE INJ 2 MG/ML DISP.SYRIN IV PRN ×6 (03:59→21:44)
--- NOTE | 2022-07-26 03:59 | NUR ---
RN NOTE PATIENT COMPLAINED OF PAIN ON HIS LEFT KNEE /. PRN DILAUDID INJ 2MG/ML 0.5 MG GIVEN IV ORDERED. KEPT COMFORTABLE IN BED. WILL CONTINUE TO MONITOR AND REASSESS PT.
[2022-07-26 06:33] LABS: BASOPHILS % (AUTO) 0.3 % (0.0-2.0); EOSINOPHILS % (AUTO) 0.8 % (0.0-6.0); HEMATOCRIT 43 % (39-51); HEMOGLOBIN 14.7 g/dL (13.5-17.5); LYMPHOCYTES # (AUTO) 2.2 K/uL (0.8-4.8); MEAN CORPUSCULAR HGB CONC 35 g/dl (31.0-36.0); MEAN CORPUSCULAR VOLUME 95 fL (80-96); MONOCYTES # (AUTO) 0.8 K/uL (0.1-1.30); MONOCYTES % (AUTO) 11.6 % (2.0-12.0); NEUTROPHILS # (AUTO) 3.5 K/uL (1.8-8.9); NEUTROPHILS % (AUTO) 53.3 % (43.0-81.0); PLATELET COUNT (AUTO) 225 K/uL (150-450); RED BLOOD CELL COUNT(AUTO) 4.47 MIL/uL (4.5-6.0); WHITE BLOOD COUNT (AUTO) 6.6 K/uL (4.3-11.0)
--- NOTE | 2022-07-26 07:00 | NUR ---
MS RN CLOSING NOTE PATIENT IN BED; A/O X 4. STABLE ON ROOM AIR. IN NO ACUTE DISTRESS. WITH IV ACCESS ON LEFT AC 20G; PATENT, INTACT AND SALINE LOCKED. ALL NEEDS ATTENDED. SAFETY PRECAUTIONS MAINTAINED: CALL LIGHT AND TABLE WITHIN REACH, SIDE RAILS UP X 2, BED IN LOWEST LOCKED POSITION. ENDORSED TO MORNING SHIFT FOR YENIFER.
--- NOTE | 2022-07-26 07:30 | NUR ---
MS RN OPENING NOTES RECEIVED PATIENT ON BED AWAKE AND A/O X4. ON ROOM AIR TOLERATING WELL. NO SOB NOTED. NOT IN DISTRESS. WITH COMPLAINTS OF PAIN AT THE LEFT KNEE AT THE SCALE OF 8/10. COMFORT MEASURES PROVIDED. WITH IV ACCESS AT THE LEFT AC G20 SALINE LOCKED, PATENT AND INTACT. SAFETY MEASURES IN PLACED. CALL LIGHT WITHIN REACH. BED ON LOWEST LOCKED POSITION, SIDE RAILS UP X2. WILL CONTINUE TO MONITOR.
--- NOTE | 2022-07-26 07:30 | NUR ---
MS ODONNELL OPENING NOTES RECEIVED PATIENT ON SITTING ON BED, AWAKE AND A/0 Addendum: 07/26/22 at 0942 by MARV LOCO RN ERROR
[2022-07-26 07:35] LABS: CALCIUM, SERUM 9.3 mg/dL (8.5-10.1); MAGNESIUM 2.3 mg/dL (1.8-2.4); PHOSPHORUS 3.9 mg/dL (2.5-4.9); POTASSIUM 4.3 mmol/L (3.5-5.1)
[2022-07-26 08:00] VITALS: BP 134/76
[2022-07-26] MEDS ORDERED: AMLO-212 PO (08:04)
[2022-07-26] MEDS ORDERED: CLON1TAB12 PO (08:04)
[2022-07-26] MEDS ORDERED: [UNRECOGNIZED DRUG - CODE] PO (08:06)
[2022-07-26] MEDS ORDERED: LEVO500T90 PO (08:06)
[2022-07-26] MEDS: PANTOPRAZOLE 40 MG TABLET.DR PO SCH (08:19)
[2022-07-26] MEDS: NICOTINE PATCH (21MG) 21 MG PATCH.TD24 TD SCH (08:19)
--- NOTE | 2022-07-26 08:19 | NUR ---
RN NOTE PATIENT IS COMPLAINING OF PAIN AT THE LEFT KNEE AT THE SCALE OF 10/10. DILAUDID 0.5MG GIVEN. ICE PACK FOR COLD COMPRESS PROVIDED. WILL MONITOR.
[2022-07-26] MEDS: VANCOMYCIN 1 GM in IV D5W 250ml IV SCH ×2 (08:47→21:00)
--- NOTE | 2022-07-26 12:15 | NUR ---
RN NOTE PATIENT IS COMPLAINING OF PAIN AT THE LEFT KNEE AT THE SCALE OF 10/10. DILAUDID 1MG IV GIVEN. WILL MONITOR.
--- NOTE | 2022-07-26 12:15 | NUR ---
BLAS NOTE PATIENT IS COMPLAINING OF PAIN AT THE LEFT KNEE AT THE SCALE OF 10/10. DILAUDID 0.5MG GIVEN. WILL MONITOR. Addendum: 07/26/22 at 0 by MARV LOCO RN ERROR
--- NOTE | 2022-07-26 15:23 | NUR ---
RN NOTE PATIENT IS COMPLAINING OF PAIN AT THE LEFT KNEE AT THE SCALE OF 10/10. DILAUDID 1MG GIVEN. WILL MONITOR.
[2022-07-26 16:00] VITALS: BP 149/88
--- NOTE | 2022-07-26 18:31 | NUR ---
RN NOTE PATIENT IS COMPLAINING OF PAIN AT THE LEFT KNEE AT THE SCALE OF 10/10. DILAUDID 1MG IV GIVEN. WILL MONITOR.
--- NOTE | 2022-07-26 19:30 | NUR ---
MS RN CLOSING NOTES PATIENT ON BED AWAKE AND A/O X4. ON ROOM AIR TOLERATING WELL. NO SOB NOTED. NOT IN DISTRESS. WITH COMPLAINTS OF PAIN AT THE LEFT KNEE AT THE SCALE OF 4/10. COMFORT MEASURES PROVIDED. WITH IV ACCESS AT THE LEFT AC G20 SALINE LOCKED, PATENT AND INTACT. DUE MEDS GIVEN. SAFETY MEASURES IN PLACED. CALL LIGHT WITHIN REACH. BED ON LOWEST LOCKED POSITION, SIDE RAILS UP X2. WILL ENDORSE TO NEXT SHIFT FOR YENIFER.
[2022-07-26 20:00] VITALS: BP 112/52
[2022-07-26] MEDS: TRAZODONE 50 MG TABLET PO SCH (22:00)
[2022-07-27] MEDS: HYDROMORPHONE INJ 2 MG/ML DISP.SYRIN IV PRN ×8 (00:10→23:07)
--- NOTE | 2022-07-27 05:13 | NUR ---
CLOSING NOTES: ALERT AND ORIENTATED X4 WILL USE THE CALL LIGHT TO ALERT THE NURSE HE NEEDS ASSIST DEMANDING TO HAVE HIS CALL LIGHT AND TO BE MEDICATED WHEN HE CALLS NO WAITING,THEN AFTER BEING MEDICATED HE WILL APOLOGIZE FOR HIS BEHAVIOR. LEFT KNEEIS RED AND MARKED USING THE URINAL AT THE BEDSIDE MEDICATED WITH DILAUDID 1 MG Q 3 HOURS AND EFFECTIVE
[2022-07-27 06:29] LABS: CALCIUM, SERUM 9.3 mg/dL (8.5-10.1); CREATININE 0.9 mg/dL (0.6-1.3); POTASSIUM 4.1 mmol/L (3.5-5.1)
--- NOTE | 2022-07-27 07:20 | NUR ---
MS ODONNELL OPENING NOTES PT RECEIVED AWAKE IN BED IN NO ACUTE SIGNS OF DISTRESS. A/O X4. ABLE TO MAKE NEEDS KNOWN, NO C/O PAIN OR ANY DISCOMFORT AT THIS TIME. ON ROOM AIR, TOLERATING WELL, BREATHING EVEN AND UNLABORED. IV ACCESS ON LFA #22G INTACT AND PATENT, REFUSING IVF AT THIS TIME. MAINTAINED ON NPO, RESULTS OF SMALL BOWEL FOLLOW THROUGH STILL PENDING. SAFETY PRECAUTIONS IN PLACE: BED IN LOWEST LOCKED POSITION, SIDE RAILS UP X2, CALL LIGHT AND TRAY TABLE WITHIN REACH OF PT. WILL CONTINUE TO MONITOR PT ACCORDINGLY. Addendum: 07/27/22 at 0731 by FELIZ NICHOLSON RN ERROR: WRONG PATIENT.
--- NOTE | 2022-07-27 07:22 | NUR ---
MS RN OPENING NOTES PT RECEIVED IN BED AWAKE, A/O X4. ABLE TO MAKE NEEDS KNOWN, NO C/O PAIN OR DISCOMFORTS AT THIS TIME. ON ROOM AIR, TOLERATING WELL, BREATHING EVEN AND UNLABORED. IV ACCESS ON LAC #20G INTACT, PATENT AND SL. SAFETY PRECAUTIONS IN PLACE: BED IN LOWEST LOCKED POSITION, SIDE RAILS UP X2, CALL LIGHT AND TRAY TABLE WITHIN REACH OF PT. WILL CONTINUE TO MONITOR PT ACCORDINGLY.
[2022-07-27 08:00] VITALS: BP 105/56
[2022-07-27] MEDS: PANTOPRAZOLE 40 MG TABLET.DR PO SCH (08:11)
[2022-07-27] MEDS: NICOTINE PATCH (21MG) 21 MG PATCH.TD24 TD SCH (08:11)
[2022-07-27] MEDS: VANCOMYCIN 1 GM in IV D5W 250ml IV SCH ×2 (09:20→21:17)
--- NOTE | 2022-07-27 10:10 | NUR ---
RN NOTES PT C/O ACHING, THROBBING AND TIGHTNESS PAIN ON LEFT KNEE, 10/10 SCALE. PRN DILAUDID 1MG/0.5ML IVP ADMINISTERED AT 1009. WILL CONTINUE TO MONITOR AND REASSESS PT.
--- NOTE | 2022-07-27 13:27 | NUR ---
RN NOTES PT SCREAMING AND C/O SEVERE PAIN ON LEFT KNEE, 10/10 SCALE. PRN DILAUDID 1MG/0.5ML IVP ADMINISTERED AT 1320. WILL CONTINUE TO MONITOR AND REASSESS PT.
[2022-07-27 16:00] VITALS: BP 103/60
--- NOTE | 2022-07-27 16:28 | NUR ---
RN NOTES PT C/O ACHING, THROBBING AND TIGHTNESS PAIN ON LEFT KNEE, 10/10 SCALE. PRN DILAUDID 1MG/0.5ML IVP ADMINISTERED AT 1616. WILL CONTINUE TO MONITOR AND REASSESS PT.
--- NOTE | 2022-07-27 18:42 | NUR ---
MS RN CLOSING NOTES PT IN BED AWAKE AND WATCHING TV AT THIS TIME. A/O X4. ABLE TO MAKE NEEDS KNOWN. LEFT KNEE REDNESS AND SWELLING PERSIST. ON ROOM AIR, TOLERATING WELL, BREATHING EVEN AND UNLABORED, NO SOB NOTED DURING SHIFT. IV ACCESS ON L HAND #20G INTACT, PATENT AND SL. ALL NEEDS AND CARE ATTENDED WELL. SAFETY PRECAUTIONS IN PLACE: BED IN LOWEST LOCKED POSITION, SIDE RAILS UP X2, CALL LIGHT AND TRAY TABLE WITHIN REACH OF PT. WILL ENDORSE YENIFER TO WEBSPHERE DEVELOPER NURSE.
--- NOTE | 2022-07-27 19:16 | NUR ---
MS RN OPENING NOTE; RECEIVED PT IN BED AA/O X4. ABLE TO MAKE NEEDS KNOWN,YURIY WELL ON RM AIR SATTING 98%,NO SIGN SOB/DISTRESS NOTED,BREATHING EVEN AND UNLABORED. IV ACCESS ON LAC #20G INTACT, PATENT AND SL. SAFETY PRECAUTIONS IN PLACE: BED IN LOWEST LOCKED POSITION, SIDE RAILS UP X2, CALL LIGHT AND TRAY TABLE WITHIN REACH. WILL CONTINUE TO MONITOR.
--- NOTE | 2022-07-27 19:52 | NUR ---
RN NOTE; PATIENT COMPLAINED OF LT LEG PAIN 03/20.PT ASKING ROUTINELY.PRN DILAUDED 1MG WAS GIVEN.NO A/R NOTED.
[2022-07-27 20:00] VITALS: BP 138/78
[2022-07-27] MEDS: TRAZODONE 50 MG TABLET PO SCH (21:12)
[2022-07-27] MEDS: ENOXAPARIN SODIUM 40 MG/0.4 ML DISP.SYRIN SQ SCH (21:13)
--- NOTE | 2022-07-27 23:18 | NUR ---
rn note prn Dilaudid given for pain 10/10 tolerated well.
--- NOTE | 2022-07-27 23:19 | NUR ---
rn note new order received to change Dilaudid to 2mg q3hrs as pt is reporting pain medications does not last him throughout the 3hrs. order noted and carried out.
[2022-07-27] MEDS: CEFTRIAXONE 2 G in IV D5W 100 ML IV SCH (23:54)
[2022-07-28] MEDS: HYDROMORPHONE INJ 2 MG/ML DISP.SYRIN IV PRN ×7 (02:29→21:34)
[2022-07-28 06:00] LABS: BASOPHILS % (AUTO) 0.4 % (0.0-2.0); EOSINOPHILS % (AUTO) 0.4 % (0.0-6.0); HEMATOCRIT 39 % (39-51); HEMOGLOBIN 13.4 g/dL (13.5-17.5); LYMPHOCYTES # (AUTO) 1.8 K/uL (0.8-4.8); LYMPHOCYTES % (AUTO) 28.6 % (20.0-44.0); MEAN CORPUSCULAR HGB CONC 35 g/dl (31.0-36.0); MEAN CORPUSCULAR VOLUME 94 fL (80-96); MONOCYTES # (AUTO) 0.8 K/uL (0.1-1.30); MONOCYTES % (AUTO) 13.2 % (2.0-12.0); NEUTROPHILS # (AUTO) 3.7 K/uL (1.8-8.9); NEUTROPHILS % (AUTO) 57.4 % (43.0-81.0); PLATELET COUNT (AUTO) 212 K/uL (150-450); RED BLOOD CELL COUNT(AUTO) 4.12 MIL/uL (4.5-6.0); WHITE BLOOD COUNT (AUTO) 6.4 K/uL (4.3-11.0)
[2022-07-28 06:03] LABS: CALCIUM, SERUM 9.7 mg/dL (8.5-10.1); CREATININE 0.9 mg/dL (0.6-1.3); POTASSIUM 3.5 mmol/L (3.5-5.1)
--- NOTE | 2022-07-28 06:43 | NUR ---
MS RN CLOSING NOTE; RECEIVED PT IN BED AA/O X4. ABLE TO MAKE NEEDS KNOWN,YURIY WELL ON RM AIR 98%,NO SIGN SOB/DISTRESS NOTED,BREATHING EVEN AND UNLABORED. IV ACCESS ON L HAND INTACT, PATENT AND SL. SAFETY PRECAUTIONS IN PLACE: BED IN LOWEST LOCKED POSITION, SIDE RAILS UP X2. CALL LIGHT AND TRAY TABLE WITHIN REACH. PAIN MANAGMENT PROVIDED NEEDED. WILL CONTINUE TO MONITOR
--- NOTE | 2022-07-28 07:48 | NUR ---
RN OPENING NOTES: RECEIVED PT AWAKE IN BED AA/O X4. ABLE TO MAKE NEEDS KNOWN. ON RA, WITH NO S/S OF SOB, O2 SAT @ 98%, VS WNL. BREATHING EVEN AND UNLABORED. IV ACCESS ON L HAND #22, INTACT, PATENT AND SL. REPORTS PAIN LEVEL 3-4/10 AT THIS TIME, WILL MEDICATE ORDERED. SAFETY PRECAUTIONS IN PLACE: BED IN LOWEST LOCKED POSITION, SIDE RAILS UP X2. CALL LIGHT AND TRAY TABLE WITHIN REACH, WILL CONT WITH PLAN OF CARE DURING SHIFT.
[2022-07-28 08:00] VITALS: BP 143/84
[2022-07-28] MEDS: PANTOPRAZOLE 40 MG TABLET.DR PO SCH ×2 (08:37→09:03)
[2022-07-28] MEDS: NICOTINE PATCH (21MG) 21 MG PATCH.TD24 TD SCH (08:37)
[2022-07-28] MEDS: VANCOMYCIN 1 GM in IV D5W 250ml IV SCH ×2 (08:37→20:53)
[2022-07-28 16:00] VITALS: BP 91/62
--- NOTE | 2022-07-28 17:41 | NUR ---
RN NOTES: GIVEN PT ICE PACK FOR KNEE PAIN TO ALLEVIATE DISCOMFORT, PT STATES " IT HELPS A LITTLE BIT."
--- NOTE | 2022-07-28 18:27 | NUR ---
RN CLOSING NOTES: PT AWAKE IN BED A/O X4. ABLE TO MAKE NEEDS KNOWN. ON RA, WITH NO S/S OF SOB, VS WNL. BREATHING EVEN AND UNLABORED. IV ACCESS ON L HAND #22, INTACT, PATENT AND SL. REPORTS PAIN LEVEL 2/10 AT THIS TIME. PAIN CONTROL ADMINISTERED ORDERED, NEEDS MET, KEPT PT CLEAN, DRY AND COMFORTABLE. SAFETY PRECAUTIONS IN PLACE: BED IN LOWEST LOCKED POSITION, SIDE RAILS UP X2. CALL LIGHT AND TRAY TABLE WITHIN REACH, WILL ENDORSE TO PM SHIFT.
--- NOTE | 2022-07-28 19:38 | NUR ---
MS KEYON INITIAL NOTES RECEIVED REPORT FROM AM NURSE WHILE DOING OUR ROUNDS . HE'S AWAKE AND ALERT WATCHING TV AT THE SAME TIME TALKING TO SOMEONE ON HIS CELLPHONE. HEPLOCK ON HIS LEFT HAND GAUGE 22 PATENT AND INTACT. PAIN SUBSIDE AFTER PAIN MEDS GIVEN BY DAYSHIFT NURSE EARLIER. KEPT HIM WARM AND COMFORTABLE AT ALL TIMES. BED IN LOW AND LOCK IN POSITION. PLACE CALL LIGHT AT REACH. WILL CONTINUE MONITORING.
[2022-07-28 20:00] VITALS: BP 111/80
--- NOTE | 2022-07-28 20:55 | NUR ---
ms weston notes Vancomycin IVPB hung by another nurse as ordered. No signs of any adverse reaction noted, will continue monitoring.
[2022-07-28] MEDS: ENOXAPARIN SODIUM 40 MG/0.4 ML DISP.SYRIN SQ SCH (21:21)
[2022-07-28] MEDS: TRAZODONE 50 MG TABLET PO SCH (21:22)
[2022-07-28] MEDS: CEFTRIAXONE 2 G in IV D5W 100 ML IV SCH (23:58)
[2022-07-29] MEDS: HYDROMORPHONE INJ 2 MG/ML DISP.SYRIN IV PRN ×7 (00:36→23:36)
[2022-07-29 07:00] VITALS: BP 121/72
[2022-07-29 07:04] LABS: CALCIUM, SERUM 9.5 mg/dL (8.5-10.1); CREATININE 0.9 mg/dL (0.6-1.3); POTASSIUM 3.5 mmol/L (3.5-5.1)
--- NOTE | 2022-07-29 07:20 | NUR ---
MS RN OPENING NOTES PT AWAKE IN BED. A/OX4 AND ABLE TO MAKE NEEDS KNOWN. PT IS ON ROOM AIR WITH NO COMPLAINTS OF SOB. BREATHING IS EVEN AND NONLABORED. NO CARDIAC DISTRESS VERBALIZED OR NOTICED. PT HAS LEFT KNEE REDNESS AND IS SWOLLEN, CONSISTENT WITH DIAGNOSIS OF CELLULITIS. IV ACCESS ON LEFT HAND 22G SL, INTACT WITH NO SIGNS OF INFILTRATION. SAFETY PRECAUTIONS IN PLACE WITH BED IN LOWEST LOCKED POSITION, TRAY AND CALL LIGHT WITHIN REACH. ALL NEEDS MET AT THIS TIME. WILL CONTINUE TO MONITOR.
--- NOTE | 2022-07-29 07:22 | NUR ---
ms senior it project manager closing notes pt awake and alert playing on his cellphone . No discomfort at this time only when he ambulate to the bathroom. all due meds given and all needs met. kept him warm and comfortable at all times. endorse to am nurse for continuity of care. place call light at reach.
[2022-07-29] MEDS: NICOTINE PATCH (21MG) 21 MG PATCH.TD24 TD SCH (08:22)
[2022-07-29] MEDS: PANTOPRAZOLE 40 MG TABLET.DR PO SCH (08:22)
[2022-07-29] MEDS: VANCOMYCIN 1 GM in IV D5W 250ml IV SCH ×2 (08:40→20:11)
[2022-07-29] MEDS ORDERED: KETOROLAC TROMETHAMINE INJ 30 MG/ML VIAL IV SCH (14:00)
[2022-07-29] MEDS: COLCHICINE 0.6 MG TABLET PO SCH (14:03)
[2022-07-29 16:00] VITALS: BP 149/79
--- NOTE | 2022-07-29 18:47 | NUR ---
MS RN CLOSING NOTE PT AWAKE IN BED. A/OX4 AND ABLE TO MAKE NEEDS KNOWN. PT IS ON ROOM AIR WITH NO COMPLAINTS OF SOB. BREATHING IS EVEN AND NONLABORED. NO CARDIAC DISTRESS VERBALIZED OR NOTICED. PT HAS LEFT KNEE REDNESS AND IS SWOLLEN, CONSISTENT WITH DIAGNOSIS OF CELLULITIS. PAIN MANAGED WITH MEDICATION. SAFETY PRECAUTIONS IN PLACE WITH BED IN LOWEST LOCKED POSITION, TRAY AND CALL LIGHT WITHIN REACH. ALL NEEDS MET AT THIS TIME. WILL ENDORSE YENIFER TO SHOWER ROOM ATTENDANT NURSE.
--- NOTE | 2022-07-29 19:30 | NUR ---
MS RN NOTES RECEIVED NO IV ACCESS.NEW SALINE LOCK INSERTED ON RIGHT FOREARM #20,FLUSHED WITH NS AND KEPT PATENT.IV SITE HAIRY,SHAVED WITH PATIENT PERMISSION.
--- NOTE | 2022-07-29 19:30 | NUR ---
MS RN OPENING NOTE RECEIVED PATIENT FROM MORNING SHIFT NURSE; PATIENT IN BED, ALERT AND ORIENTED X 4; ON ROOM AIR, BREATHING EVENLY AND NO RESPIRATORY DISTRESS NOTED; WITH IV ACCESS IN LAC G20; ENCOURAGED VERBALIZATION OF NEEDS; SAFETY PRECAUTIONS IN PLACED, BED IN LOW POSITION, LOCKED, SIDE RAILS UP X 3, CALL LIGHT WITHIN REACH; WILL CONTINUE TO MONITOR THROUGHOUT SHIFT
[2022-07-29 20:00] VITALS: BP 150/88
[2022-07-29] MEDS: ENOXAPARIN SODIUM 40 MG/0.4 ML DISP.SYRIN SQ SCH (20:40)
[2022-07-29] MEDS: TRAZODONE 50 MG TABLET PO SCH (21:53)
[2022-07-29] MEDS: CEFTRIAXONE 2 G in IV D5W 100 ML IV SCH (23:35)
--- NOTE | 2022-07-30 06:46 | NUR ---
MS RN CLOSING NOTE PATIENT IN BED, ALERT AND ORIENTED X 4; ON ROOM AIR, BREATHING EVENLY AND TOLERATING WELL, NO RESPIRATORY DISTRESS NOTED; WITH IV ACCESS ON RIGHT HAND SALINE LOCK, INTACT AND PATENT; ADMINISTERED MEDICATIONS PRESCRIBED; PAIN MEDICATIONS PRN GIVEN REQUESTED BY PATIENT; MONITORED ACCORDINGLY; PATIENT'S NEEDS ATTENDED; SAFETY PRECAUTIONS IMPLEMENTED, BED IN LOW POSITION, LOCKED, SIDE RAILS UP X 3, CALL LIGHT WITHIN REACH; WILL ENDORSE TO MORNING SHIFT NURSE FOR CONTINUITY OF CARE
[2022-07-30 07:00] VITALS: BP 136/82
[2022-07-30] MEDS: PANTOPRAZOLE 40 MG TABLET.DR PO SCH ×2 (07:30→08:28)
--- NOTE | 2022-07-30 07:45 | NUR ---
MS RN OPENING NOTES: RECEIVED PT ASLEEP, EASILY ROUSED, A/O X 4; ON ROOM AIR, BREATHING EVEN, AND UNLABORED. NO S/S OF SOB. REPORTS PAIN 2/10 AT THIS TIME. IV ACCESS ON RIGHT HAND #20, INTACT, PATENT, SALINE LOCKED. PT IS STABLE, COMFORTABLE AN, CLEAN AND DRY. SAFETY PRECAUTIONS IMPLEMENTED, BED IN LOW POSITION, LOCKED, SIDE RAILS UP X 3, CALL LIGHT AND TABLE WITHIN REACH; WILL CONT WITH PLAN OF CARE DURING SHIFT.
[2022-07-30 08:03] LABS: CALCIUM, SERUM 9.6 mg/dL (8.5-10.1); CREATININE 0.9 mg/dL (0.6-1.3); POTASSIUM 3.8 mmol/L (3.5-5.1)
[2022-07-30] MEDS: VANCOMYCIN 1 GM in IV D5W 250ml IV SCH (08:28)
[2022-07-30] MEDS: COLCHICINE 0.6 MG TABLET PO SCH ×2 (08:29→09:00)
[2022-07-30] MEDS: NICOTINE PATCH (21MG) 21 MG PATCH.TD24 TD SCH ×2 (08:29→09:00)
[2022-07-30] MEDS ORDERED: KETOROLAC TROMETHAMINE INJ 30 MG/ML VIAL IV ONE (13:30)
[2022-07-30] MEDS ORDERED: IBUP-1955 PO (15:15)
[2022-07-30] MEDS ORDERED: ALLO300T2 PO (15:15)
[2022-07-30] MEDS ORDERED: DOXY100C2 PO (15:15)
--- NOTE | 2022-07-30 15:45 | NUR ---
MS DC NOTES: PT IS STABLE FOR DC, VITALS WNL, NO S/S OF SOB ON RA. DC INSTRUCTIONS GIVEN, BELONGINGS RECONCILED, DC DOCS REVIEWED AND SIGNED, PT VERBALIZED UNDERSTANDING TO EVERYTHING DISCUSSED. ID BAND, IV ACCESS REMOVED. PT LEFT UNIT ON FOOT, ESCORTED TO LOBBY BY STAFF, WILL LEAVE WITH PRIVATE CARE WITH FRIEND.
== END 2022-07-30 13:50 | disposition home or self-care (01) | DRG 351 ==
LOC: ER 21:06 → MED 22:55
PROVIDERS: ADMIT Nurse Practitioner Family; ATTEND Nurse Practitioner Acute Care
DX: M10.9 Gout, unspecified (principal); E87.1 Hypo-osmolality and hyponatremia; L03.116 Cellulitis of left lower limb; I25.10 Atherosclerotic heart disease of native coronary artery without angina pectoris; Z20.822 Contact with and (suspected) exposure to COVID-19; F41.9 Anxiety disorder, unspecified; I10 Essential (primary) hypertension; E78.5 Hyperlipidemia, unspecified; Z95.5 Presence of coronary angioplasty implant and graft; K86.1 Other chronic pancreatitis; Z87.19 Personal history of other diseases of the digestive system; R73.9 Hyperglycemia, unspecified; Z87.81 Personal history of (healed) traumatic fracture; E78.00 Pure hypercholesterolemia, unspecified; Z79.82 Long term (current) use of aspirin; Z79.02 Long term (current) use of antithrombotics/antiplatelets; Z79.899 Other long term (current) drug therapy; Z82.49 Family history of ischemic heart disease and other diseases of the circulatory system; F17.200 Nicotine dependence, unspecified, uncomplicated
CPT/HCPCS: 36415; 73721-TC; 80048-TC; 80061-TC; 80076-TC; 80202-TC; 83735-TC; 84100-TC; 85025-TC; 85652-TC; 86140-TC; 87040-TC; 87081-TC; C9803; G0378; J0696; J1170; J1650; J1885; J2270; J3370; J7030; J7040; J7050; J7060

== ENCOUNTER 2022-12-12 09:04 | Inpatient (IN) | payer OTHER ==
[~2022-12-12] VITALS: Ht 165.1 cm; Wt 85.3 kg
[~2022-12-12 09:04] MED LIST changes: +ALLO300T2 PO; +AMLO-212 PO; +CLON1TAB12 PO; +DOXY100C2 PO; -HYDR-3976 GT; +IBUP-1955 PO; -IBUP-1957 PO; -KETO10TA2 PO; +LEVO500T90 PO; -OMEG-167 PO; -ONDA4TAB11 PO; -ONDA4TAB5 PO; -PANT40TA2 PO; -TRAM-351 PO; -ZOLP10TA2 PO; +[UNRECOGNIZED DRUG - CODE] PO
--- NOTE | 2022-12-12 09:30 | NUR ---
DR GRAHAM AT BEDSIDE FOR EVAL
[2022-12-12 09:32] LABS: BASOPHILS % (AUTO) 0.9 % (0.0-2.0); HEMATOCRIT 42 % (39-51); HEMOGLOBIN 15.4 g/dL (13.5-17.5); LYMPHOCYTES # (AUTO) 2.1 K/uL (0.8-4.8); LYMPHOCYTES % (AUTO) 57.3 % (20.0-44.0); MEAN CORPUSCULAR HGB CONC 37 g/dl (31.0-36.0); MEAN CORPUSCULAR VOLUME 94 fL (80-96); MONOCYTES # (AUTO) 0.4 K/uL (0.1-1.30); MONOCYTES % (AUTO) 9.6 % (2.0-12.0); NEUTROPHILS # (AUTO) 1.2 K/uL (1.8-8.9); NEUTROPHILS % (AUTO) 31.2 % (43.0-81.0); PLATELET COUNT (AUTO) 236 K/uL (150-450); RED BLOOD CELL COUNT(AUTO) 4.51 MIL/uL (4.5-6.0); WHITE BLOOD COUNT (AUTO) 3.7 K/uL (4.3-11.0)
--- NOTE | 2022-12-12 09:35 | NUR ---
IV INSERTED RAC 20G, BLD DRAWN , SENT TO LAB
--- NOTE | 2022-12-12 09:37 | NUR ---
C/O SUBSTERNAL CHESTPAIN RADIATING TO LEFT SHOULDER X 20 MINS, PT KEEPS ASKING FOR ICE CHIPS. DR GRAHAM SAID NPO. PUT ON MONITOR.
[2022-12-12 09:42] LABS: CALCIUM, SERUM 8.5 mg/dL (8.5-10.1); CARBON DIOXIDE 26 mmol/L (21-32); CHLORIDE 101 mmol/L (98-107); GLUCOSE 206 mg/dL (74-106); SODIUM SERUM 140 mmol/L (136-145); UREA NITROGEN, BLOOD 12 mg/dL (7-18)
--- NOTE | 2022-12-12 09:50 | NUR ---
PT PUT ON TRANSPORTATION SECURITY OFFICER
[2022-12-12] MEDS ORDERED: ASPIRIN 81 MG TAB.CHEW PO ONE (10:00)
[2022-12-12] MEDS ORDERED: NITROGLYCERIN 0.4 MG/TAB BOTTLE SL ONE (10:00)
--- NOTE | 2022-12-12 10:08 | NUR ---
COD CLERK AT BEDSIDE
[2022-12-12] MEDS ORDERED: NITROGLYCERIN 0.4 MG/TAB BOTTLE ONE (10:11)
[2022-12-12] MEDS ORDERED: ASPIRIN 81 MG TAB.CHEW ONE (10:12)
--- NOTE | 2022-12-12 10:15 | NUR ---
GAVE MEDS PO AND ELZBIETA
--- NOTE | 2022-12-12 10:16 | NUR ---
COVID SWAB COLLECTED AND SENT TO LAB.
--- NOTE | 2022-12-12 10:46 | NUR ---
Mrsa swab at 1038
[2022-12-12] MEDS ORDERED: TRAM50TA2 PO (11:31)
[2022-12-12] MEDS ORDERED: COLC0.6C3 PO (11:31)
--- NOTE | 2022-12-12 11:40 | NUR ---
BED 304-1. ADMITTING DEPT MADE AWARE.
--- NOTE | 2022-12-12 11:47 | NUR ---
gave report to kaiden murillo for bed bed 304-1, for ricki
[2022-12-12 11:48] LABS: ALBUMIN 3.4 g/dL (3.4-5.0); BILIRUBIN,DIRECT 0.1 mg/dL (0.0-0.2); BILIRUBIN,TOTAL 0.4 mg/dL (0.2-1.0); TOTAL PROTEIN, SERUM 6.9 g/dL (6.4-8.2)
[2022-12-12 13:00] VITALS: BP 160/93
[2022-12-12] MEDS ORDERED: TRAMADOL HCL 50 MG TABLET PO PRN (13:00)
[2022-12-12] MEDS ORDERED: ONDANSETRON HCL/PF 4 MG/2 ML VIAL IVP PRN (13:00)
[2022-12-12] MEDS ORDERED: clonazePAM 1 MG TABLET PO PRN (13:00)
[2022-12-12] MEDS ORDERED: ACETAMINOPHEN 325 MG TABLET PO PRN (13:00)
[2022-12-12] MEDS ORDERED: Z GUARD REMEDY 4 OZ OINT TP PRN (13:00)
[2022-12-12] MEDS ORDERED: MORPHINE SULFATE INJ 2 MG/ML DISP.SYRIN IV PRN (13:00)
[2022-12-12] MEDS ORDERED: DEXTROSE 50%-WATER 50 ML DISP.SYRIN IV PRN (13:00)
--- NOTE | 2022-12-12 13:00 | NUR ---
LEARNING DISABLED TEACHER NOTES: RECEIVED REPORT BY PHONE FROM FLANGING ROLL OPERATOR, PT CAME TO UNIT VIA GURNEY. AMBULATED TO BED WITH STEADY GAIT. PT IS AWAKE, A/OX4, ABLE TO MAKE NEEDS KNOWN. VSS, ON RA WITH NO S/S OF SOB, DENIES PAIN AT THIS TIME. BELONGINGS CHECKED AND SIGNED. SKIN ASSESSMENT DONE, SKIN IS WNL, INTACT. IV ACCESS AT R AC# 20 SL, INTACT AND FLUSHING WELL. ACCOUNTS MANAGER PLACED, CURRENTLY READS SR, HR= 77. ORIENTED TO STAFF AND UNIT, ADVISED TO USE CALL LIGHT FOR ASSISTANCE. ALL SAFETY MEASURES IN PLACE, CALL LIGHT AND TABLE WITHIN REACH, WILL CONT WITH PLAN OF CARE DURING SHIFT.
[2022-12-12] MEDS ORDERED: ENOXAPARIN SODIUM 40 MG/0.4 ML DISP.SYRIN SQ SCH (14:00)
[2022-12-12 14:06] LABS: CHOLESTEROL 286 mg/dL (<200); HDL CHOLESTEROL 42 mg/dL (40-60); LDL 69 mg/dL (0-99); TRIGLYCERIDES 1335 mg/dL (30-150)
[2022-12-12 16:00] VITALS: BP 158/86
[2022-12-12] MEDS: NICOTINE PATCH (21MG) 21 MG PATCH.TD24 TD SCH ×2 (16:30→16:48)
[2022-12-12] MEDS: GEMFIBROZIL 600 MG TABLET PO SCH (16:47)
[2022-12-12] MEDS: INSULIN REGULAR, HUMAN 100 UNIT/ML 3 ML VIAL SQ PRN ×2 (16:59→21:08)
[2022-12-12] MEDS: BLOOD SUGAR DIAGNOSTIC 1 EACH STRIP IN SCH ×2 (17:06→21:07)
--- NOTE | 2022-12-12 17:30 | NUR ---
RN MS Note Pt states that he is "scared of taking the medication with blood pressure medications". Medication teaching done by RN. Pt still declined. Will return the med per unit protocol.
--- NOTE | 2022-12-12 19:31 | NUR ---
REMOTE SENSING ADVISOR CLOSING NOTES: PT IS AWAKE, A/OX4, ABLE TO MAKE NEEDS KNOWN. PT IS ON RA WITH NO S/S OF SOB, DENIES PAIN AT THIS TIME. IV ACCESS AT R AC# 20 SL, INTACT AND FLUSHING WELL. SCRAP IRON LOADER CURRENTLY READS SR, HR 77. ALL NEEDS MET, DUE MEDS GIVEN. ALL SAFETY MEASURES IN PLACE, CALL LIGHT AND TABLE WITHIN REACH, ENDORSED TO PM SHIFT.
--- NOTE | 2022-12-12 20:21 | NUR ---
PATIENT IN BED, ALERT/ORIENTED X4, ROOM AIR, NO COMPLAIN OF CHEST PAIN, INDEPENDENT, CONTINENT, AMBULATORY, SR 75 ON THE TELE. EDUCATED ON THE PLAN OF CARE, WILL CONTINUE TO MONITOR.
[2022-12-12 20:39] VITALS: BP 150/89
[2022-12-12 20:43] VITALS: BP 150/89
[2022-12-12] MEDS ORDERED: ZOLPIDEM TARTRATE 5 MG TABLET PO PRN (21:30)
[2022-12-12] MEDS ORDERED: ATORVASTATIN 40 MG TABLET PO SCH (22:00)
[2022-12-13 00:59] VITALS: BP 136/77
[2022-12-13 01:00] VITALS: BP 130/77
[2022-12-13 04:36] VITALS: BP 131/76
--- NOTE | 2022-12-13 06:28 | NUR ---
ADMITTED FOR CHEST PAIN, ALERT/ORIENTED X4, ROOM AIR, NO COMPLAIN OF CHEST PAIN AT THIS TIME, SR ON THE TELE. INDEPENDENT OF ADLS, AMBULATORY, STEADY GAIT. VS WNL, AFEBRILE. SERIAL TROPONIN HS WNL, PRE DIABETIC, AIC 5.5, ACCUCHECK AND SLIDING SCALE, NO INSULIN GIVEN YET. CARDIAC CONSULT, 2D ECHO, KEPT SAFE, WILL CONTINUE WITH THE PLAN OF CARE.
[2022-12-13] MEDS: BLOOD SUGAR DIAGNOSTIC 1 EACH STRIP IN SCH (06:40)
[2022-12-13] MEDS: INSULIN REGULAR, HUMAN 100 UNIT/ML 3 ML VIAL SQ PRN (06:41)
[2022-12-13] MEDS ORDERED: PANTOPRAZOLE 40 MG TABLET.DR PO SCH (07:30)
--- NOTE | 2022-12-13 07:30 | NUR ---
PUBLIC AID ELIGIBILITY ASSISTANT OPENING NOTES RECEIVED PT AWAKE IN BED, ALERT/ORIENTED X4, ON TELE MONITOR SR 84. STABLE ON ROOM AIR. NO COMPLAINTS OF CHEST PAIN. IV ACCESS OON RAC #20G SL. AMBULATORY WITH BRP. FALL AND SAFETY MEASURES DONE, BED LOCKED IN LOWEST POSITION, SIDE RAILS UP X2, CALL LIGHT WITHIN REACH. WILL ADMINISTER ALL SCHEDULED MEDS ORDERED. WILL CONTINUE TO MONITOR.
[2022-12-13 08:00] VITALS: BP 136/87
[2022-12-13 08:21] LABS: BASOPHILS % (AUTO) 0.7 % (0.0-2.0); EOSINOPHILS % (AUTO) 0.8 % (0.0-6.0); HEMATOCRIT 42 % (39-51); HEMOGLOBIN 14.4 g/dL (13.5-17.5); LYMPHOCYTES # (AUTO) 1.9 K/uL (0.8-4.8); LYMPHOCYTES % (AUTO) 48.7 % (20.0-44.0); MEAN CORPUSCULAR HGB CONC 34 g/dl (31.0-36.0); MEAN CORPUSCULAR VOLUME 94 fL (80-96); MONOCYTES # (AUTO) 0.4 K/uL (0.1-1.30); NEUTROPHILS # (AUTO) 1.6 K/uL (1.8-8.9); NEUTROPHILS % (AUTO) 40.8 % (43.0-81.0); PLATELET COUNT (AUTO) 198 K/uL (150-450); RED BLOOD CELL COUNT(AUTO) 4.49 MIL/uL (4.5-6.0)
[2022-12-13] MEDS: GEMFIBROZIL 600 MG TABLET PO SCH (08:37)
[2022-12-13 08:38] VITALS: BP 136/87
[2022-12-13] MEDS: NICOTINE PATCH (21MG) 21 MG PATCH.TD24 TD SCH (08:38)
[2022-12-13] MEDS ORDERED: AMLODIPINE BESYLATE 5 MG TABLET PO SCH (09:00)
[2022-12-13] MEDS ORDERED: ALLOPURINOL 100 MG TABLET PO SCH (09:00)
[2022-12-13] MEDS ORDERED: ASPIRIN EC 81 MG TABLET.DR PO SCH (09:00)
[2022-12-13] MEDS ORDERED: BENAZEPRIL HCL 20 MG TABLET PO SCH (09:00)
[2022-12-13] MEDS ORDERED: METOPROLOL SUCCINATE 50 MG TAB.SR.24H PO SCH (09:00)
[2022-12-13] MEDS ORDERED: CLOPIDOGREL BISULFATE 75 MG TABLET PO SCH (09:00)
[2022-12-13 09:07] LABS: CALCIUM, SERUM 9.3 mg/dL (8.5-10.1); CREATININE 0.8 mg/dL (0.6-1.3); MAGNESIUM 1.8 mg/dL (1.8-2.4); PHOSPHORUS 2.7 mg/dL (2.5-4.9); POTASSIUM 3.5 mmol/L (3.5-5.1)
--- NOTE | 2022-12-13 10:50 | NUR ---
TELE DISCHARGE NOTES PT SEEN BY DR. DYER, MARIA ALEJANDRA UPON DISCHARGE. PT LEFT AMBULATORY AND IN STABLE CONDITION. IV ACCESS REMOVED. ID ARM BAND REMOVED. TELE MONITOR REMOVED. ALL BELONGINGS CHECKED AND RECONCILED. PT EDUCATION DONE AND INSTRUCTED TO RETURN TO ER INCASE OF EMERGENCY. PT UNDERSTOOD. CHARGE NURSE AWARE.
== END 2022-12-13 11:00 | disposition home or self-care (01) | DRG 198 ==
LOC: ER 09:09 → TELE 11:41
PROVIDERS: ADMIT Nurse Practitioner Acute Care; ATTEND Nurse Practitioner Acute Care
DX: I25.10 Atherosclerotic heart disease of native coronary artery without angina pectoris (principal); K57.92 Diverticulitis of intestine, part unspecified, without perforation or abscess without bleeding; D72.819 Decreased white blood cell count, unspecified; E11.9 Type 2 diabetes mellitus without complications; E78.5 Hyperlipidemia, unspecified; E78.1 Pure hyperglyceridemia; G89.4 Chronic pain syndrome; Z20.822 Contact with and (suspected) exposure to COVID-19; I10 Essential (primary) hypertension; I25.2 Old myocardial infarction; Z95.5 Presence of coronary angioplasty implant and graft; M10.9 Gout, unspecified; K86.1 Other chronic pancreatitis; Z87.81 Personal history of (healed) traumatic fracture; Z98.890 Other specified postprocedural states; Z87.19 Personal history of other diseases of the digestive system; F17.200 Nicotine dependence, unspecified, uncomplicated; Z79.02 Long term (current) use of antithrombotics/antiplatelets; Z82.49 Family history of ischemic heart disease and other diseases of the circulatory system; Z79.82 Long term (current) use of aspirin; Z79.899 Other long term (current) drug therapy
CPT/HCPCS: 36415; 71045-TC; 80048-TC; 80061-TC; 80076-TC; 82962-TC; 83690-TC; 83735-TC; 83880; 84100-TC; 84484-TC; 85025-TC; 87081-TC; C9803; G0378; J1650; J1815

== ENCOUNTER 2023-05-09 21:47 | Emergency (ER) | payer OTHER ==
[~2023-05-09] VITALS: Ht 165.1 cm; Wt 77.1 kg
[~2023-05-09 21:47] MED LIST changes: +COLC0.6C3 PO; -DOXY100C2 PO; -IBUP-1955 PO; -LEVO500T90 PO; +TRAM50TA2 PO; -[UNRECOGNIZED DRUG - CODE] PO
[2023-05-09] MEDS ORDERED: CT SWABBABLE VALVE TRANS SET 1 EA INFUS.SET MC ONE (23:21)
[2023-05-09] MEDS ORDERED: IOHEXOL-350 100 ML VIAL IV ONE (23:21)
[2023-05-09] MEDS ORDERED: IV NS 0.9% 250 ML IV ONE (23:21)
[2023-05-09 23:23] LABS: BASOPHILS % (AUTO) 0.5 % (0.0-2.0); EOSINOPHILS # (AUTO) 0.1 K/uL (0.0-0.7); EOSINOPHILS % (AUTO) 0.8 % (0.0-6.0); HEMATOCRIT 42 % (39-51); HEMOGLOBIN 14.3 g/dL (13.5-17.5); LYMPHOCYTES % (AUTO) 41.8 % (20.0-44.0); MEAN CORPUSCULAR HEMOGLOBIN 33 PG (26.0-33.0); MEAN CORPUSCULAR HGB CONC 34 g/dl (31.0-36.0); MEAN CORPUSCULAR VOLUME 97 fL (80-96); MONOCYTES # (AUTO) 0.5 K/uL (0.1-1.30); MONOCYTES % (AUTO) 7.7 % (2.0-12.0); NEUTROPHILS # (AUTO) 3.5 K/uL (1.8-8.9); NEUTROPHILS % (AUTO) 49.2 % (43.0-81.0); PLATELET COUNT (AUTO) 231 K/uL (150-450); RED BLOOD CELL COUNT(AUTO) 4.29 MIL/uL (4.5-6.0); RED CELL DISTRIBUTION WIDTH 14.4 % (11.5-15.0); WHITE BLOOD COUNT (AUTO) 7.1 K/uL (4.3-11.0)
[2023-05-09 23:32] LABS: CALCIUM, SERUM 9.2 mg/dL (8.5-10.1); POTASSIUM 3.6 mmol/L (3.5-5.1)
[2023-05-09 23:33] LABS: PARTIAL THROMBOPLASTIN TIME 27.3 SEC (24.3-34.3); PROTHROMBIN TIME 10.6 SECS (9.2-11.1)
[2023-05-09 23:40] LABS: BILIRUBIN,DIRECT 0.1 mg/dL (0.0-0.2); BILIRUBIN,TOTAL 0.5 mg/dL (0.2-1.0); TOTAL PROTEIN, SERUM 7.7 g/dL (6.4-8.2)
[2023-05-10] MEDS ORDERED: BENZ-13 PO (02:51)
[2023-05-10 02:54] VITALS: BP 111/65; TEMP 98; O2SAT 98
== END 2023-05-10 02:55 | disposition home or self-care (01) ==
LOC: ER 21:52
DX: R04.2 Hemoptysis (principal); R91.1 Solitary pulmonary nodule; I10 Essential (primary) hypertension; E78.5 Hyperlipidemia, unspecified; F41.9 Anxiety disorder, unspecified; F17.200 Nicotine dependence, unspecified, uncomplicated; Z79.82 Long term (current) use of aspirin; Z98.890 Other specified postprocedural states; Z79.899 Other long term (current) drug therapy
CPT/HCPCS: 99285; 71275; 85025; 80048; 80076; 36415; 85730; J7050; Q9967

== ENCOUNTER 2024-04-03 15:44 | Emergency (ER) | payer MEDICAID, OTHER ==
[~2024-04-03] VITALS: Ht 170.2 cm; Wt 68.9 kg
[~2024-04-03 15:44] MED LIST changes: +BENZ-13 PO
[2024-04-03 15:50] VITALS: TEMP 98.6; O2SAT 97
[2024-04-03 16:52] VITALS: BP 152/94
[2024-04-03] MEDS: ONDANSETRON HCL/PF 4 MG/2 ML VIAL IVP ONE (16:52)
[2024-04-03] MEDS: NITROGLYCERIN PACKET 1 GM PACKET TD ONE (16:52)
[2024-04-03] MEDS: MORPHINE SULFATE INJ 2 MG/ML DISP.SYRIN IV ONE (16:52)
== END 2024-04-03 17:13 | disposition left against medical advice (07) ==
LOC: ER 15:44
DX: R07.9 Chest pain, unspecified (principal); I10 Essential (primary) hypertension; E78.5 Hyperlipidemia, unspecified; I25.10 Atherosclerotic heart disease of native coronary artery without angina pectoris; F41.9 Anxiety disorder, unspecified; F17.200 Nicotine dependence, unspecified, uncomplicated; M10.9 Gout, unspecified; Z87.19 Personal history of other diseases of the digestive system; Z87.39 Personal history of other diseases of the musculoskeletal system and connective tissue

== ENCOUNTER 2024-12-04 07:49 | Emergency (ER) | payer MEDICAID ==
[~2024-12-04] VITALS: Ht 165.1 cm; Wt 72.6 kg
[2024-12-04] MEDS ORDERED: ONDANSETRON HCL/PF 4 MG/2 ML VIAL ONE (08:10)
[2024-12-04] MEDS ORDERED: MORPHINE SULFATE INJ 4 MG/ML DISP.SYRIN ONE (08:10)
[2024-12-04] MEDS ORDERED: KETOROLAC TROMETHAMINE 15 MG/ML VIAL ONE (08:10)
[2024-12-04 08:20] LABS: BASOPHILS % (AUTO) 0.7 % (0.0-2.0); EOSINOPHILS % (AUTO) 0.8 % (0.0-6.0); HEMATOCRIT 40 % (39-51); HEMOGLOBIN 13.8 g/dL (13.5-17.5); LYMPHOCYTES % (AUTO) 35.7 % (20.0-44.0); MEAN CORPUSCULAR HEMOGLOBIN 33 PG (26.0-33.0); MEAN CORPUSCULAR HGB CONC 35 g/dl (31.0-36.0); MEAN CORPUSCULAR VOLUME 96 fL (80-96); MONOCYTES # (AUTO) 0.5 K/uL (0.1-1.30); MONOCYTES % (AUTO) 8.3 % (2.0-12.0); NEUTROPHILS # (AUTO) 3.1 K/uL (1.8-8.9); NEUTROPHILS % (AUTO) 54.5 % (43.0-81.0); PLATELET COUNT (AUTO) 288 K/uL (150-450); RED BLOOD CELL COUNT(AUTO) 4.16 MIL/uL (4.5-6.0); RED CELL DISTRIBUTION WIDTH 13.1 % (11.5-15.0); WHITE BLOOD COUNT (AUTO) 5.7 K/uL (4.3-11.0)
[2024-12-04] MEDS: MORPHINE SULFATE INJ 2 MG/ML DISP.SYRIN IV ONE (08:21)
[2024-12-04] MEDS: IV NS 0.9% 1,000 ML BAG IV ONE (08:21)
[2024-12-04] MEDS: KETOROLAC TROMETHAMINE 15 MG/ML VIAL IV ONE (08:22)
[2024-12-04] MEDS: ONDANSETRON HCL/PF 4 MG/2 ML VIAL IVP ONE (08:22)
[2024-12-04 08:36] LABS: CALCIUM, SERUM 9.1 mg/dL (8.5-10.1); CREATININE 1.2 mg/dL (0.6-1.3); POTASSIUM 4.9 mmol/L (3.5-5.1)
[2024-12-04 08:41] LABS: ALBUMIN 3.7 g/dL (3.4-5.0); BILIRUBIN,DIRECT 0.1 mg/dL (0.0-0.2); BILIRUBIN,TOTAL 0.4 mg/dL (0.2-1.0); TOTAL PROTEIN, SERUM 7.6 g/dL (6.4-8.2)
[2024-12-04 08:56] LABS: COLOR,URINE RED (YELLOW)
[2024-12-04 08:57] LABS: APPEARANCE,URINE CLEAR (CLEAR)
[2024-12-04 09:05] LABS: BACTERIA,URINE Few /HPF (None Seen); RBC,URINE TOO NUMEROUS TO COUN /HPF (0-2); SQUAMOUS EPITHELIAL CELL,UR None Seen /HPF (None Seen)
[2024-12-04] MEDS ORDERED: NAPR-1164 PO (10:03)
[2024-12-04] MEDS ORDERED: TAMS-12 PO (10:03)
[2024-12-04] MEDS ORDERED: HYDROCODONE/APAP 10/325MG TABLET ONE (10:35)
[2024-12-04] MEDS: HYDROCODONE/APAP 10/325MG TABLET PO ONE (10:41)
[2024-12-04 10:44] VITALS: BP 138/80; TEMP 98.6; O2SAT 96
== END 2024-12-04 10:45 | disposition home or self-care (01) ==
LOC: ER 07:55
DX: K80.20 Calculus of gallbladder without cholecystitis without obstruction (principal); I10 Essential (primary) hypertension; E11.9 Type 2 diabetes mellitus without complications; E78.1 Pure hyperglyceridemia; F17.200 Nicotine dependence, unspecified, uncomplicated; F41.9 Anxiety disorder, unspecified; I25.10 Atherosclerotic heart disease of native coronary artery without angina pectoris; M10.9 Gout, unspecified; Z79.02 Long term (current) use of antithrombotics/antiplatelets; Z79.82 Long term (current) use of aspirin; Z79.899 Other long term (current) drug therapy
CPT/HCPCS: 99285; 74176; 96374; 96375; 96361; 85025; 80048; 87086; 83690; 80076; 81001; 36415; J1885; J2270; J2405

== ENCOUNTER 2025-04-30 22:46 | Emergency (ER) | payer MEDICAID ==
[~2025-04-30] VITALS: Ht 165.1 cm; Wt 76.7 kg
[~2025-04-30 22:46] MED LIST changes: +NAPR-1164 PO; +TAMS-12 PO
[2025-04-30 23:33] LABS: PLATELET COUNT (AUTO) 288 K/uL (150-450); RED BLOOD CELL COUNT(AUTO) 4.29 MIL/uL (4.5-6.0); RED CELL DISTRIBUTION WIDTH 14.3 % (11.5-15.0); WHITE BLOOD COUNT (AUTO) 7.9 K/uL (4.3-11.0)
[2025-04-30 23:42] LABS: CALCIUM, SERUM 9.0 mg/dL (8.5-10.1); CREATININE 1.2 mg/dL (0.6-1.3); SODIUM SERUM 139 mmol/L (136-145); UREA NITROGEN, BLOOD 25 mg/dL (7-18)
[2025-05-01 00:01] LABS: ASPARTATE AMINOTRANSFERASE 25 U/L (15-37); NT-PRO BNP 70 pg/mL (0-125); TOTAL PROTEIN, SERUM 7.5 g/dL (6.4-8.2)
[2025-05-01 03:22] VITALS: BP 118/72; TEMP 97.5; O2SAT 95
== END 2025-05-01 03:23 | disposition home or self-care (01) ==
LOC: ER 22:48
DX: R07.89 Other chest pain (principal); F10.10 Alcohol abuse, uncomplicated; E11.9 Type 2 diabetes mellitus without complications; E78.1 Pure hyperglyceridemia; F17.200 Nicotine dependence, unspecified, uncomplicated; F41.9 Anxiety disorder, unspecified; I11.9 Hypertensive heart disease without heart failure; I25.10 Atherosclerotic heart disease of native coronary artery without angina pectoris; M10.9 Gout, unspecified; Z79.02 Long term (current) use of antithrombotics/antiplatelets; Z79.82 Long term (current) use of aspirin; Z79.899 Other long term (current) drug therapy; Z82.49 Family history of ischemic heart disease and other diseases of the circulatory system; Z87.19 Personal history of other diseases of the digestive system; Z95.5 Presence of coronary angioplasty implant and graft
CPT/HCPCS: 36415; 71045-TC; 80048-TC; 80076-TC; 83880; 84484-TC; 85025-TC

== ENCOUNTER 2025-05-18 11:04 | Emergency (ER) | payer MEDICAID ==
[~2025-05-18] VITALS: Ht 165.1 cm; Wt 72.6 kg
[2025-05-18] MEDS ORDERED: KETOROLAC TROMETHAMINE INJ 30 MG/ML VIAL ONE (11:25)
[2025-05-18] MEDS: IV NS 0.9% 1,000 ML BAG IV ONE (11:32)
[2025-05-18] MEDS: KETOROLAC TROMETHAMINE 15 MG/ML VIAL IV ONE (11:32)
[2025-05-18 11:40] LABS: APPEARANCE,URINE SLIGHTLY CLOUDY (CLEAR); BLOOD, URINE 3+ Ery/uL (NEGATIVE); LEUKOCYTE ESTERASE ,URINE NEGATIVE (NEGATIVE); NITRITE, URINE NEGATIVE (NEGATIVE); UGLUCOSE NEGATIVE (NEGATIVE)
[2025-05-18 11:41] LABS: PLATELET COUNT (AUTO) 245 K/uL (150-450); RED BLOOD CELL COUNT(AUTO) 4.18 MIL/uL (4.5-6.0); RED CELL DISTRIBUTION WIDTH 14.3 % (11.5-15.0); WHITE BLOOD COUNT (AUTO) 5.7 K/uL (4.3-11.0)
[2025-05-18 11:46] LABS: ADD URINE CULTURE NO; SQUAMOUS EPITHELIAL CELL,UR 0-2 /HPF (None Seen); URINE AMORPHOUS URATE Few /HPF (None Seen)
[2025-05-18 11:50] LABS: CALCIUM, SERUM 8.7 mg/dL (8.5-10.1); CREATININE 1.1 mg/dL (0.6-1.3); SODIUM SERUM 139.0 mmol/L (136-145); UREA NITROGEN, BLOOD 19.0 mg/dL (7-18)
[2025-05-18 11:55] LABS: ASPARTATE AMINOTRANSFERASE 28.0 U/L (15-37); TOTAL PROTEIN, SERUM 7.1 g/dL (6.4-8.2)
[2025-05-18] MEDS ORDERED: TAMS-12 PO (12:46)
[2025-05-18] MEDS ORDERED: KETO10TA2 PO (12:46)
[2025-05-18] MEDS ORDERED: TAMSULOSIN 0.4 MG CAP.SR.24H ONE (12:48)
[2025-05-18] MEDS ORDERED: MORPHINE SULFATE INJ 2 MG/ML DISP.SYRIN ONE (12:48)
[2025-05-18] MEDS: MORPHINE SULFATE INJ 2 MG/ML DISP.SYRIN IV ONE (12:55)
[2025-05-18] MEDS: TAMSULOSIN 0.4 MG CAP.SR.24H PO ONE (12:55)
[2025-05-18 13:34] VITALS: BP 135/76; TEMP 98.4; O2SAT 97
== END 2025-05-18 13:35 | disposition home or self-care (01) ==
LOC: ER 11:09
DX: N20.0 Calculus of kidney (principal); I11.9 Hypertensive heart disease without heart failure; I25.10 Atherosclerotic heart disease of native coronary artery without angina pectoris; F41.9 Anxiety disorder, unspecified; F17.200 Nicotine dependence, unspecified, uncomplicated; E11.9 Type 2 diabetes mellitus without complications; E78.1 Pure hyperglyceridemia; M10.9 Gout, unspecified; E78.00 Pure hypercholesterolemia, unspecified; Z87.19 Personal history of other diseases of the digestive system; Z79.899 Other long term (current) drug therapy; Z79.82 Long term (current) use of aspirin; Z79.02 Long term (current) use of antithrombotics/antiplatelets
CPT/HCPCS: 99285; 74176; 96374; 96361; 96375; 85025; 80048; 87086; 83690; 80076; 81001; 36415; J1885; J7030; J2270

== ENCOUNTER 2025-05-22 01:22 | Emergency (ER) | payer MEDICAID ==
[~2025-05-22] VITALS: Ht 160 cm; Wt 76.2 kg
[~2025-05-22 01:22] MED LIST changes: +KETO10TA2 PO
[2025-05-22] MEDS ORDERED: ONDANSETRON HCL/PF 4 MG/2 ML VIAL ONE (01:43)
[2025-05-22] MEDS ORDERED: KETOROLAC TROMETHAMINE INJ 30 MG/ML VIAL ONE ×2 (01:43→03:59)
[2025-05-22] MEDS: IV NS 0.9% 1,000 ML BAG IV ONE (01:51)
[2025-05-22] MEDS: KETOROLAC TROMETHAMINE 15 MG/ML VIAL IV ONE (01:51)
[2025-05-22] MEDS: ONDANSETRON HCL/PF 4 MG/2 ML VIAL IVP ONE (01:51)
[2025-05-22 01:54] LABS: PLATELET COUNT (AUTO) 223 K/uL (150-450); RED BLOOD CELL COUNT(AUTO) 3.92 MIL/uL (4.5-6.0); RED CELL DISTRIBUTION WIDTH 14.7 % (11.5-15.0); WHITE BLOOD COUNT (AUTO) 6.5 K/uL (4.3-11.0)
[2025-05-22] MEDS ORDERED: MORPHINE SULFATE INJ 4 MG/ML DISP.SYRIN ONE (02:16)
[2025-05-22 03:55] LABS: ASPARTATE AMINOTRANSFERASE 18.0 U/L (15-37); CALCIUM, SERUM 9.3 mg/dL (8.5-10.1); CREATININE 1.7 mg/dL (0.6-1.3); SODIUM SERUM 140.0 mmol/L (136-145); TOTAL PROTEIN, SERUM 7.3 g/dL (6.4-8.2); UREA NITROGEN, BLOOD 20.0 mg/dL (7-18)
[2025-05-22 03:55] LABS: APPEARANCE,URINE CLEAR (CLEAR); BLOOD, URINE 3+ Ery/uL (NEGATIVE); LEUKOCYTE ESTERASE ,URINE NEGATIVE (NEGATIVE); NITRITE, URINE NEGATIVE (NEGATIVE); UGLUCOSE NEGATIVE (NEGATIVE)
[2025-05-22] MEDS: KETOROLAC TROMETHAMINE INJ 30 MG/ML VIAL IV ONE (04:00)
[2025-05-22 04:09] LABS: ADD URINE CULTURE NO; SQUAMOUS EPITHELIAL CELL,UR Few /HPF (None Seen)
[2025-05-22 04:49] VITALS: BP 137/78; TEMP 97.6; O2SAT 96
== END 2025-05-22 04:49 | disposition home or self-care (01) ==
LOC: ER 01:27
DX: N13.2 Hydronephrosis with renal and ureteral calculous obstruction (principal); R05.9 Cough, unspecified; E11.9 Type 2 diabetes mellitus without complications; E78.1 Pure hyperglyceridemia; F41.9 Anxiety disorder, unspecified; I11.9 Hypertensive heart disease without heart failure; I25.10 Atherosclerotic heart disease of native coronary artery without angina pectoris; M10.9 Gout, unspecified; F17.200 Nicotine dependence, unspecified, uncomplicated; Z79.02 Long term (current) use of antithrombotics/antiplatelets; Z79.82 Long term (current) use of aspirin; Z87.19 Personal history of other diseases of the digestive system; Z79.899 Other long term (current) drug therapy
CPT/HCPCS: 99285; 74176; 96374; 71045; 96361; 96375; 96376; 85025; 80048; 80076; 81001; 36415; J1885 ×2; J2270; J2405; J7030